=== PATIENT | male | born 1950 | race Caucasian/White ===

== ENCOUNTER → 2018-04-26 10:08 | Outpatient (CLI) | payer MEDICARE, OTHER, SELFPAY ==
[2018-04-26 12:30] LABS: Cholesterol 124 mg/dL (140-199); HDL Cholesterol 61 mg/dL (40-60); LDL Cholesterol Calculated 51 mg/dL (<100); Triglycerides 58 mg/dL (35-150)
== END ==
PROVIDERS: PCP Internal Medicine; Visit Provider Internal Medicine Cardiovascular Disease
DX: Z00.00 Encounter for general adult medical examination without abnormal findings (principal); I25.10 Atherosclerotic heart disease of native coronary artery without angina pectoris; Z95.5 Presence of coronary angioplasty implant and graft
CPT/HCPCS: 36415; 80061

== ENCOUNTER → 2018-07-17 09:54 | Outpatient (CLI) | payer MEDICARE, OTHER, SELFPAY ==
[2018-07-17 10:12] LABS: Add Manual Diff / Slide Review NO; Basophils Percent Auto 0.6 % (0-2); Hematocrit 44.3 % (41-53); Hemoglobin 14.8 g/dL (13.5-17.5); Lymphocytes Percent Auto 19.1 % (25-40); Mean Corpuscular HGB Conc 33.4 % (30-36); Mean Corpuscular Hemoglobin 30.1 PG (26-34); Mean Corpuscular Volume 90.2 fL (80-100); Neutrophils Absolute Auto 4400 /uL (3000-5900); Neutrophils Percent Auto 69.3 % (50-75); Platelet Count 204 X10^3/uL (150-400); Red Blood Cell Count 4.91 X10^6/uL (4.5-5.9); Red Cell Distribution Width 13.2 % (11.6-14.8); White Blood Cell Count 6.3 X10^3/uL (4.5-11.0)
[2018-07-17 11:23] LABS: Thyroid Stimulating Hormone 3.28 uIU/mL (0.47-4.68)
[2018-07-17 11:33] LABS: Alanine Aminotransferase 30 IU/L (21-72); Albumin 4.4 g/dL (3.5-5.0); Albumin Globulin Ratio 1.6 (1.0-2.8); Alkaline Phosphatase 81 U/L (38-126); Aspartate Aminotransferase 30 IU/L (17-59); BUN Creatinine Ratio 28.9 (6-22); Bilirubin Total 0.5 mg/dL (0.2-1.3); Blood Urea Nitrogen 26 mg/dL (9-20); Calcium 9.2 mg/dL (8.4-10.2); Carbon Dioxide 31 mmol/L (22-32); Chloride 105 mmol/L (98-107); Cholesterol 118 mg/dL (140-199); Estimated Glomerular Filt Rate > 60.0 mL/min (>60); Globulin 2.8 g/dL (1.7-4.1); Glucose 99 mg/dL (80-110); HDL Cholesterol 67 mg/dL (40-60); HEMOLYSIS < 15 (0-50); LDL Cholesterol Calculated 41 mg/dL (<100); Potassium 4.6 mmol/L (3.4-5.1); Sodium 142 mmol/L (137-145); Total Protein 7.2 g/dL (6.3-8.2); Triglycerides 52 mg/dL (35-150)
== END ==
PROVIDERS: PCP Internal Medicine; Visit Provider Internal Medicine
DX: M15.0 Primary generalized (osteo)arthritis (principal); F32.9 Major depressive disorder, single episode, unspecified; I25.10 Atherosclerotic heart disease of native coronary artery without angina pectoris
CPT/HCPCS: 36415; 80053; 80061; 84443; 85025

== ENCOUNTER 2018-10-11 11:44 | Day surgery (SDC) | payer MEDICARE, OTHER, SELFPAY ==
--- NOTE | 2018-10-11 | PATH_ITS ---
[facility] Accession Number: [id number] . 01 Material submitted: . PART A: TRANSVERSE COLON POLYP AT 75 PART B: LEFT COLON POLYP AT 40 PART C: SIGMOID POLYP AT 20 . 02 Diagnosis: A. Biopsy, Transverse Colon Polyp at 75 cm: Polypoid-shaped fragment of normal appearing colon mucosa consistent with mucosal polypoid redundancy. Negative for evidence of neoplasm on multiple histologic sections. . B. Biopsy, Polyp Left Colon at 40 cm: Tubular adenoma involving single biopsy fragment. . C. Biopsy, Sigmoid Colon Polyp at 20 cm: Hyperplastic polyp. MRV/10/12/2018 . 02 Electronically signed: . Beau Serrato MD, Pathologist NPI- [id number] . 01 Gross description: . Received three formalin-filled containers, each labeled with the patient's name: . A. In a container labeled transverse colon polyp at 75, the specimen consists of a 0.5 cm portion of tissue, entirely submitted in cassette A. B. In a container labeled left colon polyp at 40, the specimen consists of two 0.2-0.4 cm portions of tissue, entirely submitted in cassette B. C. In a container labeled sigmoid polyp at 20, the specimen consists of three 0.3-0.4 cm portions of tissue, entirely submitted in cassette C. ([id number]) /FRR . 02 Pathologist provided ICD-10: D12.4 . 02 CPT . 250730, 335536, [id number] Specimen Comment: A duplicate report has been generated due to demographic updates. Performed at: 01 [facility] [address], [place], [place] [id number] MD Robbie Naranjo MD Phone: [phone] Performed at: 02 [facility] [address] [place] [id number] MD Mary Beth Kennedy MD Phone: [phone]
[2018-10-11 12:04] VITALS: BMI 27.0
[2018-10-11 12:20] VITALS: BP 142/87; PULSE 75; RESP 16; TEMP 36.6; O2SAT 100
[2018-10-11] MEDS: SODIUM CHLORIDE 0.9% 1,000 ML 21 ML IV (12:20)
--- NOTE | 2018-10-11 12:46 | PM.HP.1 ---
History of Present Illness Date Patient Seen: 10/11/18 Time Patient Seen: 12:46 Chief complaint: 91052 Colonoscopy Narrative: 68-year-old male who presents for colorectal screening. His last examination was 10 years ago. On further history today he denies any recent gastrointestinal symptoms. No nausea, vomiting, loss of appetite, unexplained weight loss, abdominal pain, change in bowel habits, diarrhea, constipation, melena, hematochezia, or bright red blood per rectum. Patient History Medical History Anxiety disorder (Acute) Benign heart murmur (Acute) Chronic back pain (Acute) Coronary artery disease (Acute) Depression (Acute) History of coronary angiogram (Acute) Hyperlipidemia (Acute) Hypertension (Acute) Myocardial infarction (Acute) Osteoarthritis (Acute) Peripheral neuropathy (Acute) Surgical History History of colonoscopy (Acute) Family & Social History Family History: Reviewed 10/11/18 by Fidel Coffey MD Tobacco & Substance use: Nonsmoker Meds Home Medications Medication Instructions Recorded Confirmed Type aspirin 81 mg PO DAILY 10/11/18 10/11/18 History atorvastatin 80 mg PO BEDTIME 10/11/18 10/11/18 History gabapentin 100 mg PO BID 10/11/18 10/11/18 History gabapentin 300 mg PO BID 10/11/18 10/11/18 History venlafaxine 75 mg PO BID 10/11/18 10/11/18 History Allergies Allergy/AdvReac Type Severity Reaction Status Date / Time Penicillins [PENICILLINS] Allergy Severe I WILL Verified 10/11/18 12:20 , childhood rn hydrocodone Allergy Unknown pass out Verified 10/11/18 12:20 Review of Systems Review of Systems All systems reviewed & are unremarkable except as noted in HPI and below Exam Vital Signs (past 8 hours): - 10/11/18 12:20 Temperature 97.9 F Pulse Rate 75 Respiratory Rate 16 Blood Pressure 142/87 H Pulse Oximetry 100 Oxygen Delivery Method Room Air Narrative Exam Narrative: Well-nourished well-developed male in no acute distress. Alert oriented x3 Sclera nonicteric Chest clear to auscultation bilaterally with regular rate and rhythm. Abdomen soft, nondistended, nontender, no masses Extremities no clubbing, cyanosis, or edema Objective Labs Labs: No recent laboratory or radiographic studies for review Assessment & Plan Plan: Assessment/Plan Narrative: 68-year-old male requiring colorectal screening since it has been 10 years from his previous examination. Colonoscopy is currently recommended. Technical details of the procedure were discussed. Risks, benefits, alternatives were explained. Risks including but not limited to sedation, aspiration, bleeding, pain, missed lesion, incomplete examination, need for further radiographic studies, colonic perforation, need for major abdominal surgery, and all attendant risks of major surgery were discussed at length. All questions were answered to his satisfaction, and he voiced understanding. Consent was placed on the chart. We will proceed as above.
--- NOTE | 2018-10-11 12:50 | PM.PREOP ---
Pre-operative Note Interval Note Pre-op Check: Yes History & Physical Reviewed by Physician, Yes Exam Performed and Yes History & Physical exam performed today by Physician Changes: No H&P completed within 30 days and has changed as indicated here:: Patient seen and examined today. History and physical examination placed on the chart. Proceed with colonoscopy today as planned. ASA Class (for procedural sedation): II
[2018-10-11] MEDS: MIDAZOLAM 5 MG/5 ML VIAL IV (13:06)
[2018-10-11] MEDS: fentaNYL 250 MCG/5 ML INJ IV (13:07)
--- NOTE | 2018-10-11 13:12 | SUR.OPER ---
GLASSES TO PACU WITH PATIENT
--- NOTE | 2018-10-11 13:36 | PM.OP.ENDO ---
Operative Date/Time/Diagnoses Date of procedure: 10/11/18 Time of procedure: 13:36 Pre-op diagnosis: Colorectal screening Post-op diagnosis: other (Colon polyps) Procedure & Clinicians Study performed: 1. Sedation per surgeon 2. Colonoscopy with cold forceps polypectomies Same procedure as scheduled: Yes Indications: 68-year-old male who presents for colorectal screening. His last examination was 10 years ago. Colonoscopy is currently recommended. Surgeon: Fidel Coffey Procedure Notes SCOAP/Timeout: Yes Procedure in detail: After obtaining informed consent, the patient was brought to the GI suite and placed in the left lateral decubitus position on the examination table. After placement of appropriate monitors, the patient was given incremental doses of Versed and Fentanyl until an appropriate level of sedation was achieved. A time out was held per SCOAP protocol. A digital rectal examination was performed and did not reveal any masses or obstructing lesions. The colonoscope was gently passed into the patient's anus and the entire colon navigated to the level of the cecum with some difficulty due to extremely redundant colon. Cecum was achieved only after repositioning the patient several times along with abdominal pressure. Bowel preparation was fair. Once in the cecum, the scope was withdrawn being sure to go before and beyond all mucosal folds and prominences and get an excellent examination. The findings are noted above. At the level of the rectal vault, the scope was retroflexed and the internal anal canal was examined. The scope was straightened and air aspirated from the colon. The instrument was removed from the patient's body and the procedure was concluded. The patient was allowed to awaken from sedation without difficulty and taken to the post-anesthesia care unit in good condition. Scope withdrawal time: 15:20 min Sedation minutes: 41 Findings: polyp Specimen(s): other (1. Transverse colon polyp at 70 cm 2. Left colon polyp at 40 cm 3. Sigmoid polyp at 20 cm) Complications: none Recommendations: Colonscopy in 5 years, High fiber diet and Will call with biopsy results Plan for aftercare: 1. Discharge home Follow up: as needed Disposition: PACU
[2018-10-11 13:40] VITALS: BP 138/79; PULSE 66; RESP 16; TEMP 37.1; O2SAT 98
--- NOTE | 2018-10-11 13:48 | SUR.PHASEII ---
pt bypassed pacu, awake on arrival. belly soft. vss
[2018-10-11 14:04] VITALS: BP 125/77; PULSE 66; RESP 16; TEMP 36.7; O2SAT 98
--- NOTE | 2018-10-11 14:08 | SUR.PHASEII ---
report to [facility] called, to be here in 20 minutes.
== END 2018-10-11 14:15 | disposition home or self-care (01) ==
PROVIDERS: Family Provider Internal Medicine; PCP Internal Medicine; Visit Provider Surgery
PROC: 0DJD8ZZ Inspection of Lower Intestinal Tract, Via Natural or Artificial Opening Endoscopic (ICD-10-PCS; CPT 45378; principal; 2018-10-11 12:45)
DX: Z12.11 Encounter for screening for malignant neoplasm of colon (principal); F41.9 Anxiety disorder, unspecified; I25.10 Atherosclerotic heart disease of native coronary artery without angina pectoris; I10 Essential (primary) hypertension; I25.2 Old myocardial infarction; F33.41 Major depressive disorder, recurrent, in partial remission; E78.5 Hyperlipidemia, unspecified; G62.9 Polyneuropathy, unspecified; D12.4 Benign neoplasm of descending colon
CPT/HCPCS: 45380; 88305; 99152; 99153; J2250; J3010

== ENCOUNTER → 2019-01-14 10:00 | Outpatient (CLI) | payer MEDICARE, OTHER, SELFPAY ==
[2019-01-14 10:45] LABS: BUN Creatinine Ratio 31.1 (6-22); Blood Urea Nitrogen 28 mg/dL (9-20); Carbon Dioxide 27 mmol/L (22-32); Chloride 103 mmol/L (98-107); Estimated Glomerular Filt Rate > 60.0 mL/min (>60); Glucose 130 mg/dL (80-110); HEMOLYSIS < 15 (0-50); Potassium 4.5 mmol/L (3.4-5.1); Sodium 140 mmol/L (137-145)
[2019-01-14 11:13] LABS: Prostate Specific Antigen Scrn 0.199 ng/mL (0.1-4.0)
[2019-01-14 17:37] LABS: Hep C Virus Ab w/Reflex Quant NEGATIVE s/c (NEGATIVE)
== END ==
PROVIDERS: Family Provider Internal Medicine; PCP Internal Medicine; Visit Provider Internal Medicine
DX: M15.0 Primary generalized (osteo)arthritis (principal); F32.9 Major depressive disorder, single episode, unspecified; I25.10 Atherosclerotic heart disease of native coronary artery without angina pectoris; Z00.01 Encounter for general adult medical examination with abnormal findings
CPT/HCPCS: 36415; 80048; 86803; G0103

== ENCOUNTER → 2019-05-09 09:22 | Outpatient (CLI) | payer MEDICARE, OTHER, SELFPAY ==
[2019-05-09 10:51] LABS: BUN Creatinine Ratio 21.1 (6-22); Blood Urea Nitrogen 19 mg/dL (9-20); Calcium 9.4 mg/dL (8.4-10.2); Carbon Dioxide 29 mmol/L (22-32); Chloride 102 mmol/L (98-107); Estimated Glomerular Filt Rate > 60.0 mL/min (>60); Glucose 103 mg/dL (80-110); HEMOLYSIS < 15 (0-50); Potassium 4.3 mmol/L (3.4-5.1); Sodium 139 mmol/L (137-145)
== END ==
PROVIDERS: Family Provider Internal Medicine; PCP Internal Medicine; Visit Provider Registered Nurse
DX: I25.10 Atherosclerotic heart disease of native coronary artery without angina pectoris (principal); R01.1 Cardiac murmur, unspecified; I25.5 Ischemic cardiomyopathy
CPT/HCPCS: 36415; 80048

== ENCOUNTER → 2019-07-02 11:27 | Outpatient (CLI) | payer MEDICARE, OTHER, SELFPAY ==
--- NOTE | 2019-07-02 | DI.RAD.S_ITS ---
PROCEDURE: XR RIBS LT MIN 3V W CXR1V INDICATIONS: Pleurodynia TECHNIQUE: 2 views of the left ribs were acquired, along with a single view chest. COMPARISON: None. FINDINGS: Surgical changes and devices: None. Bones and chest wall: No dislocations. No suspicious bony lesions. Overlying soft tissues appear unremarkable. There is a slightly displaced fracture involving what appears to be the left ninth rib and likely also the left 10th rib without pneumothorax Lungs and pleura: No pleural effusions or pneumothorax. Lungs appear clear. Mediastinum: Mediastinal contours appear normal. Heart size is normal. IMPRESSION: Acute left ninth and 10th rib fractures, without associated pneumothorax. Dictated by: Bijan Colvin M.D. on 07/02/2019 at 12:05 Approved by: Bijan Colvin M.D. on 07/02/2019 at 12:07
== END ==
PROVIDERS: Family Provider Internal Medicine; PCP Internal Medicine; Visit Provider Physician Assistant
DX: S22.42XA Multiple fractures of ribs, left side, initial encounter for closed fracture (principal); R07.81 Pleurodynia
CPT/HCPCS: 71101

== ENCOUNTER → 2019-08-09 10:07 | Outpatient (CLI) | payer MEDICARE, OTHER, SELFPAY ==
[2019-08-09 11:29] LABS: BUN Creatinine Ratio 17.5 (6-22); Blood Urea Nitrogen 14 mg/dL (9-20); Calcium 9.3 mg/dL (8.4-10.2); Carbon Dioxide 27 mmol/L (22-32); Chloride 103 mmol/L (98-107); Cholesterol 127 mg/dL (140-199); Estimated Glomerular Filt Rate > 60.0 mL/min (>60); Glucose 106 mg/dL (80-110); HDL Cholesterol 61 mg/dL (40-60); HEMOLYSIS < 15 (0-50); LDL Cholesterol Calculated 56 mg/dL (<100); Potassium 4.5 mmol/L (3.4-5.1); Sodium 140 mmol/L (137-145); Triglycerides 49 mg/dL (35-150)
== END ==
PROVIDERS: PCP Internal Medicine; Visit Provider Registered Nurse
DX: R01.1 Cardiac murmur, unspecified (principal); I25.5 Ischemic cardiomyopathy; I25.10 Atherosclerotic heart disease of native coronary artery without angina pectoris
CPT/HCPCS: 36415; 80048; 80061

== ENCOUNTER → 2019-09-11 13:54 | Outpatient (CLI) | payer MEDICARE, OTHER, SELFPAY ==
[2019-09-11 14:52] LABS: Add Manual Diff / Slide Review NO; Basophils Absolute Auto 0 /uL (0-100); Basophils Percent Auto 0.6 % (0-2); Eosinophils Absolute Auto 200 /uL (0-450); Hematocrit 44.4 % (41-53); Hemoglobin 14.7 g/dL (13.5-17.5); Lymphocytes Absolute Auto 1700 /uL (1100-4500); Mean Corpuscular HGB Conc 33.1 % (30-36); Mean Corpuscular Hemoglobin 30.1 PG (26-34); Mean Corpuscular Volume 90.9 fL (80-100); Monocytes Absolute Auto 600 /uL (0-900); Monocytes Percent Auto 9.7 % (3-14); Neutrophils Absolute Auto 3900 /uL (1500-7000); Neutrophils Percent Auto 59.7 % (50-75); Platelet Count 222 X10^3/uL (150-400); Red Blood Cell Count 4.89 X10^6/uL (4.5-5.9); Red Cell Distribution Width 13.4 % (11.6-14.8); White Blood Cell Count 6.4 X10^3/uL (4.5-11.0)
== END ==
PROVIDERS: PCP Internal Medicine; Visit Provider Orthopaedic Surgery
DX: Z01.818 Encounter for other preprocedural examination (principal)
CPT/HCPCS: 36415; 85025; 93005

== ENCOUNTER 2019-10-03 14:14 | Day surgery (SDC) | payer MEDICARE, OTHER, SELFPAY ==
[2019-09-30 10:49] VITALS: BMI 28.0
[2019-10-03] VITALS (8 sets, daily range): BP systolic 151–167; BP diastolic 90–109; PULSE 60–78; RESP 15–20; TEMP 36–36.8; O2SAT 95–98; BMI 28.0
[2019-10-03] MEDS: LACTATED RINGERS 1,000 ML 42 ML IV (15:00)
--- NOTE | 2019-10-03 16:23 | PM.PREOP ---
Pre-operative Note Interval Note History & Physical reviewed/Exam performed by Physician: Yes Changes to H&P: No
--- NOTE | 2019-10-03 16:36 | PM.OP.1 ---
Operative Date/Time/Diagnoses Date of procedure: 10/03/19 Time of procedure: 17:23 Pre-op diagnosis: History of right lateral malleolus ankle fracture Prominent retained hardware in the ankle Post-op diagnosis: same Procedure & Clinicians Procedure: Hardware removal of plate and screws from right lateral malleolus Same procedure as scheduled: Yes Indications: [age] year old male with bothersome prominent hardware in the right ankle after ORIF. They had failed conservative management and requested operative intervention. Risks and benefits of surgery were discussed and appropriate consents were obtained. Surgeon: Emory Méndez Click Yes if Unassisted: Yes Anesthesia Type: General Operative Notes Findings: None Closure Type: primary Specimen(s): none sent Prosthetic devices, grafts, tissues, transplants, or devices: removed Synthes small frag plate and screws Estimated Blood Loss (mL): 5 Blood products transfused: none Procedure in detail: Patient brought to the operating room and intubated on the table. Time-out was performed. Attention was turned towards the well-marked right ankle. The right leg was prepped and draped in standard sterile fashion. We used his old incision and cut through the skin. We bluntly dissected down to the plate. This was cleared with the Bovie. The screws were removed including the lag screw and the plate was removed. He bled out of every screw hole, they were then cleared with a curette and filled with bone wax to stop the bleeding. The bone was stressed and it was stable. The wound was irrigated. The deep, superficial, and skin were closed. A sterile dressing was placed. He was then placed into his Cam walker. Complications: none Post-operative Condition: stable Disposition: PACU Plan for aftercare: Outpatient. Weight bear as tolerated in the Cam Walker. Follow up 1.5 weeks. He may resume activity as tolerated once the skin has healed over
[2019-10-03] MEDS: CLINDAMYCIN 600 MG/50 ML PIGGYBACK 50 MG IV (16:41)
--- NOTE | 2019-10-03 16:59 | SUR.OPER ---
Supine on padded OR bed, head on pillow, arms secured on padded arm boards at <90 degrees abduction, legs uncrossed, safety belt at thigh, tape over blanket over lower legs. Bump under right hip
[2019-10-03] MEDS: BUPIVACAINE 0.5% W/ EPI (PF) VIAL 30 ML INJ (17:11)
[2019-10-03] MEDS: LABETALOL 20 MG/4 ML SYRINGE 5 MG IV (17:42)
[2019-10-03] MEDS: OXYCODONE/ACETAMINOPHEN 5/325 TABLET 1 TAB PO (18:05)
--- NOTE | 2019-10-03 18:26 | SUR.PHASEI ---
Late entry: Bp arrived with elevated BP, Dr. Isabel made aware. Labetalol given. BP back to baseline. C/o pain 02/03, Percocet order obtained from Dr. Isabel. Awaiting pharmacy to verify, pt moved to phase 2 and reported off to Kirill.
== END 2019-10-03 19:27 | disposition home or self-care (01) ==
PROVIDERS: PCP Internal Medicine; Visit Provider Orthopaedic Surgery
PROC: (CPT 27704; principal; 2019-10-03 15:45)
DX: T84.84XA Pain due to internal orthopedic prosthetic devices, implants and grafts, initial encounter (principal); I10 Essential (primary) hypertension; I25.2 Old myocardial infarction
CPT/HCPCS: 27704; J1100; J2405; J2704

== ENCOUNTER → 2019-11-15 10:52 | Outpatient (CLI) | payer MEDICARE, OTHER, SELFPAY ==
[2019-11-15 12:06] LABS: Cholesterol 154 mg/dL (140-199); HDL Cholesterol 58 mg/dL (40-60); LDL Cholesterol Calculated 84 mg/dL (<100); Triglycerides 59 mg/dL (35-150)
== END ==
PROVIDERS: PCP Internal Medicine; Visit Provider Registered Nurse
DX: E78.49 Other hyperlipidemia (principal)
CPT/HCPCS: 36415; 80061

== ENCOUNTER → 2019-12-20 13:36 | Outpatient (CLI) | payer MEDICARE, SELFPAY ==
--- NOTE | 2019-12-20 | DI.ECHO.S_ITS ---
[facility] +---------+ : : [address] : [place] : : : : [id number] : : : : Phone: [phone]+ Echocardiogram Report + + :Name: NATHANAEL ESCOBAR Study Date: 12/20/2019 Height: 73 in : :[facility] Weight: 215 lb : : Gender: Male BSA: 2.2 m2 : :: 1950 Age: 69 yrs BP: 158/84 mmHg: :Reason For Study: MURMUR : : Performed By: Harinder Jones : :Referring: Henry Novak M.D. : + + Interpretation Summary The ejection fraction is estimated to be 60-65%. The aortic valve is mildly calcified. There is mildly reduced leaflet mobility. There is mild aortic stenosis. The calculated aortic valve area is 1.7 cm2. Procedure: A two-dimensional transthoracic echocardiogram with color flow and Doppler was performed. The study quality was technically adequate. Images from the parasternal window were difficult to obtain and are suboptimal in quality. There is no prior echocardiogram noted for this patient. The subcostal views were difficult to obtain and are suboptimal in quality. The patient was in normal sinus rhythm during the exam. Left Ventricle: The left ventricle is normal in size. Left ventricular wall thickness is mildly increased. The ejection fraction is estimated to be 60- 65%. There are no focal wall motion abnormalities. Right Ventricle: The right ventricle is normal in size and function. Atria: The left atrium is mildly dilated. Right atrial size is normal. The interatrial septum is intact with no evidence for an atrial septal defect. Mitral Valve: The mitral valve is normal in structure and function. There is trace mitral regurgitation. Aortic Valve: The aortic valve is trileaflet. The aortic valve is mildly calcified. There is mildly reduced leaflet mobility. The peak aortic velocity is 2.79 m/sec. The aortic valve mean gradient is 17.1 mmHg. The calculated aortic valve area is 1.7 cm2. There is mild aortic stenosis. There is trace aortic regurgitation. Tricuspid Valve: The tricuspid valve is normal in structure and function. There is a trace or physiologic amount of tricuspid regurgitation. Pulmonary artery pressures cannot be estimated because of the lack of a measurable TR jet velocity. Pulmonic Valve: The pulmonic valve is not well visualized. There is trace pulmonic regurgitation. Great Vessels: The aortic root is normal size. The dimensions of the ascending aorta are normal. The pulmonary artery is normal size. The inferior vena cava was not well visualized. Pericardium/ Pleura There is no pericardial effusion. There is no pleural effusion. MMode/2D Measurements & Calculations LVIDd: 4.9 cm LVOT diam: 2.2 cm LVIDs: 3.3 cm Ao root diam: 3.4 cm FS: 32.1 % Aortic Jxn: 2.6 cm EPSS: 0.60 cm asc Aorta Diam: 2.8 cm IVSd: 1.2 cm Ao Arch Diam (Prox Trans): 2.8 cm LVPWd: 1.1 cm LV boss. diameter/BSA (cm/m^2): 2.2 LV sys. diameter/BSA (cm/m^2): 1.5 LA dimension: 3.2 cm RA long axis: 3.9 cm LA A2 area: 24.4 cm2 RA area: 17.2 cm2 LA A4 area: 22.8 cm2 RA vol: 64.3 ml LA length (vol): 5.2 cm RA : 29.0 ml/m2 LA vol: 90.2 ml LA vol index: 40.7 ml/m2 Doppler Measurements & Calculations Ao V2 max: 272.9 cm/sec LVOT Max Hossein: 117.5 cm/sec Ao V2 mean: 196.2 cm/sec LV V1 max P.5 mmHg Ao max P.8 mmHg LV V1 VTI: 26.1 cm Ao mean P.1 mmHg RACHAEL(I,D): 1.8 cm2 Ao V2 VTI: 56.6 cm RACHAEL(V,D): 1.7 cm2 sev ratio: 0.46 RACHAEL indexed to BSA (cm^2/m^2): 0.81 MV E max hossein: 75.8 cm/sec PA V2 max: 98.9 cm/sec MV A max hossein: 90.4 cm/sec PA V2 mean: 66.1 cm/sec MV E/A: 0.84 PA mean P.0 mmHg Med Peak E' Hossein: 6.5 cm/sec PA pr(Accel): 54.0 mmHg E/E' med: 11.7 PA Accel Time: 0.06 sec MV dec time: 0.26 sec SV(LVOT): 101.5 ml Reading Physician:04:41 PM
== END ==
PROVIDERS: Family Provider Internal Medicine; PCP Internal Medicine; Visit Provider Registered Nurse
DX: I35.0 Nonrheumatic aortic (valve) stenosis (principal); R01.1 Cardiac murmur, unspecified; I25.5 Ischemic cardiomyopathy
CPT/HCPCS: 93306

== ENCOUNTER → 2020-01-02 11:15 | Outpatient (CLI) | payer MEDICARE, SELFPAY ==
[2020-01-02 12:16] LABS: Add Manual Diff / Slide Review NO; Basophils Absolute Auto 0 /uL (0-100); Basophils Percent Auto 0.5 % (0-2); Eosinophils Absolute Auto 100 /uL (0-450); Eosinophils Percent Auto 2.4 % (2-4); Hematocrit 43.6 % (41-53); Hemoglobin 14.7 g/dL (13.5-17.5); Lymphocytes Absolute Auto 1400 /uL (1100-4500); Lymphocytes Percent Auto 25.8 % (25-40); Mean Corpuscular HGB Conc 33.7 % (30-36); Mean Corpuscular Volume 89.1 fL (80-100); Monocytes Absolute Auto 500 /uL (0-900); Monocytes Percent Auto 8.8 % (3-14); Neutrophils Absolute Auto 3400 /uL (1500-7000); Neutrophils Percent Auto 62.5 % (50-75); Platelet Count 238 X10^3/uL (150-400); Red Blood Cell Count 4.89 X10^6/uL (4.5-5.9); Red Cell Distribution Width 13.2 % (11.6-14.8); White Blood Cell Count 5.5 X10^3/uL (4.5-11.0)
[2020-01-02 12:43] LABS: Alanine Aminotransferase 22 IU/L (<50); Albumin 4.7 g/dL (3.5-5.0); Albumin Globulin Ratio 1.5 (1.0-2.8); Alkaline Phosphatase 91 U/L (38-126); Aspartate Aminotransferase 28 IU/L (17-59); BUN Creatinine Ratio 18.9 (6-22); Bilirubin Total 0.4 mg/dL (0.2-1.3); Blood Urea Nitrogen 17 mg/dL (9-20); Calcium 10.2 mg/dL (8.4-10.2); Carbon Dioxide 29 mmol/L (22-32); Chloride 102 mmol/L (98-107); Estimated Glomerular Filt Rate > 60.0 mL/min (>60); Globulin 3.2 g/dL (1.7-4.1); Glucose 97 mg/dL (80-110); HEMOLYSIS < 15 (0-50); Potassium 4.6 mmol/L (3.4-5.1); Sodium 141 mmol/L (137-145); Total Protein 7.9 g/dL (6.3-8.2)
== END ==
PROVIDERS: Family Provider Internal Medicine; PCP Internal Medicine; Referring Provider Internal Medicine; Visit Provider Internal Medicine
DX: M15.0 Primary generalized (osteo)arthritis (principal); F32.9 Major depressive disorder, single episode, unspecified; I25.10 Atherosclerotic heart disease of native coronary artery without angina pectoris
CPT/HCPCS: 36415; 80053; 85025

== ENCOUNTER → 2020-04-22 11:05 | Outpatient (CLI) | payer MEDICARE, SELFPAY ==
[2020-04-22 12:53] LABS: Cholesterol 181 mg/dL (140-199); HDL Cholesterol 48 mg/dL (40-60); LDL Cholesterol Calculated 121 mg/dL (<100); Triglycerides 59 mg/dL (35-150)
== END ==
PROVIDERS: Family Provider Internal Medicine; PCP Internal Medicine; Referring Provider Internal Medicine; Visit Provider Internal Medicine
DX: E78.2 Mixed hyperlipidemia (principal); I10 Essential (primary) hypertension
CPT/HCPCS: 36415; 80061

== ENCOUNTER → 2020-06-29 15:48 | Outpatient (CLI) | payer MEDICARE, SELFPAY ==
[2020-06-29 17:24] LABS: Cholesterol 218 mg/dL (140-199); HDL Cholesterol 68 mg/dL (40-60); LDL Cholesterol Calculated 128 mg/dL (<100); Triglycerides 112 mg/dL (35-150)
== END ==
PROVIDERS: Family Provider Internal Medicine; PCP Internal Medicine; Referring Provider Internal Medicine; Visit Provider Internal Medicine
DX: M15.0 Primary generalized (osteo)arthritis (principal); F32.9 Major depressive disorder, single episode, unspecified; I25.10 Atherosclerotic heart disease of native coronary artery without angina pectoris
CPT/HCPCS: 36415; 80061

== ENCOUNTER 2020-10-19 11:30 | Emergency (ER) | payer MEDICARE, SELFPAY ==
[2020-10-19] VITALS (14 sets, daily range): BP systolic 128–165; BP diastolic 66–87; PULSE 59–71; RESP 14–22; TEMP 36.1; O2SAT 91–99; BMI 29.0
[2020-10-19 12:13] LABS: Add Manual Diff / Slide Review NO; Basophils Absolute Auto 0 /uL (0-100); Basophils Percent Auto 0.2 % (0-2); Eosinophils Absolute Auto 0 /uL (0-450); Eosinophils Percent Auto 0.3 % (2-4); Hematocrit 44.1 % (41-53); Lymphocytes Absolute Auto 800 /uL (1100-4500); Lymphocytes Percent Auto 7.9 % (25-40); Mean Corpuscular HGB Conc 33.9 % (30-36); Mean Corpuscular Hemoglobin 30.9 PG (26-34); Mean Corpuscular Volume 91.1 fL (80-100); Monocytes Absolute Auto 800 /uL (0-900); Monocytes Percent Auto 7.4 % (3-14); Neutrophils Absolute Auto 8900 /uL (1500-7000); Neutrophils Percent Auto 84.2 % (50-75); Platelet Count 211 X10^3/uL (150-400); Red Blood Cell Count 4.84 X10^6/uL (4.5-5.9); Red Cell Distribution Width 12.8 % (11.6-14.8); White Blood Cell Count 10.6 X10^3/uL (4.5-11.0)
[2020-10-19 12:26] LABS: BUN Creatinine Ratio 12.5 (6-22); Blood Urea Nitrogen 15 mg/dL (9-20); Calcium 9.6 mg/dL (8.4-10.2); Carbon Dioxide 30 mmol/L (22-32); Chloride 103 mmol/L (98-107); Estimated Glomerular Filt Rate > 60.0 mL/min (>60); Glucose 135 mg/dL (80-110); HEMOLYSIS < 15 (0-50); Potassium 4.2 mmol/L (3.4-5.1); Sodium 139 mmol/L (137-145)
--- NOTE | 2020-10-19 12:33 | DI.US.S_ITS ---
PROCEDURE: US PERIPH VENOUS UP EXTREM RT INDICATIONS: RIGHT HAND SWELLING/PAIN TECHNIQUE: Real-time imaging, as well as color and pulse Doppler interrogation, was performed of the right upper extremity deep veins from the inferior neck to the antecubital fossa. COMPARISON: None. FINDINGS: The internal jugular vein, visualized portions of the subclavian vein, axillary, and brachial veins are free of intraluminal thrombus. Where physically possible, the veins are normally compressible. Color and pulse Doppler demonstrate normal intraluminal flow, with expected phasicity and pulsatility. Additional scanning of the cephalic and basilic veins of the superficial system demonstrate normal compressibility, without thrombus. IMPRESSION: No sonographic evidence of DVT Dictated by: Tio Santizo M.D. on 10/19/2020 at 13:34 Approved by: Tio Santizo M.D. on 10/19/2020 at 13:35
--- NOTE | 2020-10-19 12:33 | DI.RAD.S_ITS ---
PROCEDURE: XR CHEST 1V INDICATIONS: syncope TECHNIQUE: One view of the chest was acquired. COMPARISON: [facility], CHEST 1 VIEW, 04/20/2017, 21:59. [facility], CHEST 1 VIEW, 01/06/2016, 11:51. FINDINGS: Surgical changes and devices: None. Lungs and pleura: Lungs are clear. No pleural effusions or pneumothorax. Mediastinum: Mediastinal contours appear normal. Heart size is normal. Bones and chest wall: No suspicious bony lesions. Overlying soft tissues appear unremarkable. IMPRESSION: Normal for age, source of current syncope symptoms is not seen. Dictated by: Bijan Colvin M.D. on 10/19/2020 at 13:22 Approved by: Bijan Colvin M.D. on 10/19/2020 at 13:22
--- NOTE | 2020-10-19 12:33 | DI.CT.S_ITS ---
PROCEDURE: CT HEAD/BRAIN WO CON INDICATIONS: syncope TECHNIQUE: Noncontrast 4.5 mm thick angled axial sections acquired from the foramen magnum to the vertex, with coronal and sagittal reformats. For radiation dose reduction, the following was used: automated exposure control, adjustment of mA and/or kV according to patient size. COMPARISON: None. FINDINGS: Image quality: Excellent. CSF spaces: Basal cisterns are patent. No extra-axial fluid collections. Ventricles are normal in size and shape. Brain: No intracranial hemorrhage, mass, or mass effect. Cobos-white matter interface appears preserved. Skull and face: Calvarium and visualized facial bones are intact, without suspicious lesions. Sinuses: Visualized sinuses demonstrates mild mucosal thickening in the left sphenoid sinus. The mastoids are clear. IMPRESSION: 1. No acute intracranial abnormality. Dictated by: Robbie Mccoy M.D. on 10/19/2020 at 12:52 Approved by: Robbie Mccoy M.D. on 10/19/2020 at 12:55
--- NOTE | 2020-10-19 12:33 | DI.RAD.S_ITS ---
PROCEDURE: XR HAND RT MIN 3V INDICATIONS: hand pain, swelling NOT FROM FALL HAPPENED LAST WEEK TECHNIQUE: 3 views of the hand(s) acquired. COMPARISON: None. FINDINGS: Bones: No acute fractures or dislocations. Carpal bones are normally aligned. No suspicious bony lesions. Soft tissues: No suspicious soft tissue calcifications. Mild soft tissue swelling over the dorsum of the hand. IMPRESSION: Mild soft tissue swelling over the dorsum of the hand but no acute trauma found. Dictated by: Bijan Colvin M.D. on 10/19/2020 at 13:22 Approved by: Bijan Colvin M.D. on 10/19/2020 at 13:23
--- NOTE | 2020-10-19 13:30 | ED_ITS ---
HPI - Syncope <CHRISTIAN Karimi - Last Filed: 10/19/20 21:34> General Chief Complaint: Syncope Stated Complaint: Rt hand injury/fall laceration to lt leg Time Seen by Provider: 10/19/20 11:53 Source: patient Mode of arrival: Ambulatory Limitations: no limitations History of Present Illness HPI narrative: This is a 70-year-old male, nonsmoker, who has past medical history significant for CAD, [place], hypertension, ankle surgeries, presents to ED with chief complain of syncopal episode this morning the shower and sustain a left barger laceration; right dominant hand pain and swelling for 4 days. Patient denies chest pain, dyspnea, palpitations, or arrhythmia before the syncopal episode but felt lightheaded and weak. Patient denies history of pulmonary embolism or blood clots and denies on blood thinner. He takes baby aspirin daily. Patient reports had 2 episodes of syncopal episode 2 years ago due to taking Vicodin and being in hot shower from hypotensive episodes. Patient could not finish shower and was about to walk up the shower and found himself on the floor. Denies this was witnessed and reports probably a few seconds of syncopal episode. Patient reports mild left shoulder discomfort and right forearm light ecchymosis from the fall. 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 Patient reports has history of osteoarthritis but in the past never had this much of swelling or pain in the past. Patient reports intact sensation and decreased range of motion and strength due to pain.He denies associated symptoms such as fever overt, chills, nausea or vomiting but feels slightly warmer than usual. Denies skin injury. Patient has decreased appetite from severe pain and he rates as 8 to 9/10. Pain increases with palpation and movements. Patient has history of wrist surgery in 1970. Related Data Home Medications Medication Instructions Recorded Confirmed aspirin 81 mg PO DAILY 10/11/18 10/03/19 atorvastatin 80 mg PO BEDTIME 10/11/18 10/03/19 gabapentin 100 mg PO BID 10/11/18 10/03/19 gabapentin 300 mg PO BID 10/11/18 10/03/19 venlafaxine 75 mg PO BID 10/11/18 10/03/19 Previous Rx's Medication Instructions Recorded oxycodone-acetaminophen [Percocet] 1 tab PO Q4H PRN #10 tab 10/03/19 Allergies Allergy/AdvReac Type Severity Reaction Status Date / Time Penicillins [PENICILLINS] Allergy Severe I WILL Verified 10/03/19 14:42 , childhood rn hydrocodone AdvReac Severe pass out Verified 10/03/19 14:42 Review of Systems <CHRISTIAN Karimi - Last Filed: 10/19/20 21:34> Review of Systems Narrative: General: Denies (+) subjective fever, chills, fatigue, malaise, sweats. HEENT: Denies sinus pain, ear pain, sore throat, difficulty swallowing, (+) dizziness. Respiratory: Denies dyspnea, cough, wheezing, hemoptysis, sputum. Cardiovascular: Denies chest pain, palpitations, orthopnea, edema. Gastrointestinal: Denies nausea, vomiting, abdominal pain, diarrhea, constipa tion, melena. : Denies dysuria, frequency, incontinence, hematuria, urinary retention. Musculoskeletal: Denies weakness, joint pain or bony pain. Skin: See HPI Neurologic: See HPI Psychiatric: No concerning psychosocial issues. 12-point review of systems is negative except for those stated above. Patient History <CHRISTIAN Karimi - Last Filed: 10/19/20 21:34> Medical History Anxiety disorder Benign heart murmur Chronic back pain Coronary artery disease Depression History of coronary angiogram Hyperlipidemia Hypertension Myocardial infarction (04/20/17) Osteoarthritis Peripheral neuropathy Surgical History History of arthroscopy History of arthroscopy of knee History of colonoscopy Social History household members: none Smoking Status: Never smoker alcohol intake: current Smoking Status: Never smoker alcohol intake frequency: 0-2 drinks per day Substance Use Type: does not use Exam <CHRISTIAN Karimi - Last Filed: 10/19/20 21:34> Narrative Exam Narrative: GEN: Alert, oriented x 3, well appearing and nourished, and in no acute distress. Head: Normal cephalic, atraumatic. No scalp or temporal tenderness, palpable mass or rash. EYES: Pupils are equal, round, and reactive to light and accommodation. Extraocular muscles are intact bilaterally. There is no subconjunctival hemorrhage, exudate and sclera non-icteric. ENT: Bilateral auditory canals and tympanic membranes clear. Hearing grossly intact. Nose without bleeding, purulent discharge or deviation. Facial sinuses nontender to palpate. Mucous membrane moist, no mucosal lesion. Throat without erythema, tonsillar hypertrophy or exudate. Uvula in midline, airway patent. Neck: Trachea in midline. No JVD, non-tender without lymphadenopathy. No masses or thyroid megaly. Supple, non-tender and no meningeal signs. CARDIAC: Normal regular rate and rhythm with murmurs. No gallops, or rubs. No chest wall tenderness. No peripheral edema, cyanosis or pallor. Capillary refill is less than 2 seconds. RESPIRATORY: Lungs are clear to auscultate bilaterally. No cough, wheezes, rales, or rhonchi. No stridor, respiratory distress, increase work of br eathing, or accessary muscle used. ABD: Abdomen soft, nontender and non-distended. No guarding or rebound tenderness to palpate. Bowel sounds are normal in all 4 quadrants. There is no palpable masses or organomegaly. EXT: Mild tenderness to palpate in anterior and lateral left shoulder without deformity, swelling, erythema, or crepitus and neurovascularly intact distally. Right hand strength and range of motion decreased compared to left hand. Intact radial pulse and sensation with brisk cap refill on right hand. SKIN: Laceration on left barger without active bleeding. Faint ecchymosis to right forearm. Generalize right hand swelling and tender to palpate. Mild warmth and erythema appreciated. BACK: Mild tenderness to palpate in lumbar region and patient reports this is chronic pain and no changes. No deformity or crepitance. No flank tenderness. NEUROLOGICAL: Alert and oriented to place, time and person. Sensation and motor function intact bilaterally. No facial droops, dysphasia. PSYCHIATRIC: Good judgement and reason, without hallucinations, abnormal affect or abnormal behaviors during the examination. Patient is not suicidal. Initial Vital Signs Initial Vital Signs: Vital Signs Pulse Rate 71 10/19/20 11:40 Respiratory Rate 21 10/19/20 11:40 Pulse Oximetry 91 10/19/20 11:40 <Leo Vasquez DO - Last Filed: 10/20/20 00:11> Initial Vital Signs Initial Vital Signs: Vital Signs Pulse Rate 71 10/19/20 11:40 Respiratory Rate 21 10/19/20 11:40 Pulse Oximetry 91 10/19/20 11:40 Procedures <[facility]idalP Filed: 10/19/20 21:34> Laceration Repair Laceration 1: Site: lower extremity Side (If applicable): left Size (cm): 5 Description: linear and flap Depth: simple, single layer Local Anesthetic: lidocaine 1% and with bicarb Amount of anesthesia used (mL): 4 Pre-repair: wound explored and irrigated extensively Skin layer closed with: nylon Size (cm): 4-0 Number of sutures: 4 Technique: simple, interrupted Scores <Zaheer Encarnacionhemant [employer] Filed: 10/19/20 21:34> GCS [place] coma scale eye opening: Spontaneous [place] coma scale verbal response: Orientated [place] coma scale motor response: Obey commands [place] coma scale total score: 15 Citation: [place] Syncope Rule in Low risk group. HEART Score Heart Score history: Slightly Suspicious Heart Score EKG: Normal Heart Score Age: > or = 65 years old Heart Score risk factors: 1-2 risk factors Heart Score troponin: < or = to normal limit Heart Score Total: 3 NIH Stroke Scale Level of Conciousness: Alert, keenly responsive Ask month/age: Answers both questions correctly. Open/close eyes, close hand: Performs both tasks correctly Best gaze horizontal: Normal Visual abraham: No visual loss Facial palsy: Normal symetrical movement Left arm drift: No drift for full 10 sec Right arm drift: No drift for full 10 sec Left leg drift: No drift for full 5 sec Right leg drift: No drift for full 5 sec Limb ataxia: Absent Sensory on face/arms/legs: Normal, no sensory loss Best language: No aphasia, normal Dysarthria: Normal Extinction or inattention: No abnormality Total NIH Stroke scale score: 0 qSOFA Altered Mental Status (GCS <15): No Respiratory rate greater than/equal to 22: No Systolic blood pressure less than or equal to 100: No qSOFA Total: 0 0-1 Not High Risk 1-3 High risk Wells' Criteria for PE Clinical signs and symptoms of DVT: No PE is #1 Dx or equally likely: No Heart rate > 100: No Immobilization at least 3 days or surg in previous 4 weeks: No History of PE or DVT: No Hemoptysis: No Malignancy w/Treatment within 6 months or palliative: No Wells' PE Score total: 0 Course <CHRISTIAN Karimi - Last Filed: 10/19/20 21:34> Orders Ordered: Discontinued Medications Bacitracin (Bacitracin Oint 0.9 Gm Pckt) 1 applic TOP NOW ONE Stop: 10/19/20 13:19 Last Admin: 10/19/20 13:54 Dose: 1 applic Documented by: SCANSANDYO Sodium Chloride (Normal Saline 0.9%) 500 mls @ 1,000 mls/hr IV BOLUS ONE Stop: 10/19/20 14:03 Last Infusion: 10/19/20 16:10 Dose: 0 mls/hr Documented by: Admin: 10/19/20 13:55 Dose: 1,000 mls/hr Documented by: KATHY Ketorolac Tromethamine (Ketorolac 60 Mg/2 Ml Vial) 15 mg IV NOW ONE Stop: 10/19/20 16:42 Last Admin: 10/19/20 16:52 Dose: 15 mg Documented by: LEYDA Lidocaine/Sodium Bicarbonate (Lido 1%/Sod Bicarb 8.4% (10ml) 10 Ml Syringe) 10 ml INJ NOW ONE Stop: 10/19/20 13:19 Last Admin: 10/19/20 13:54 Dose: 10 ml Documented by: SCANSANDYO Reevaluation(s) Reevaluation #1: Patient in non acute distress at this time. Informed the patient and spouse on elevated D-dimer and chest CT added to rule out PE. Time: 14:40 Reevaluation #2: Patient reports feeling at his usual and ambulated well without chest pain, dizziness, or short of breath. Time: 16:00 Vital Signs Vital signs: Vital Signs - 8 hr 10/19/20 17:00 Pulse Rate 62 Respiratory Rate 16 Blood Pressure 165/83 H Pulse Oximetry 99 <Leo Vasquez DO - Last Filed: 10/20/20 00:11> Orders Ordered: Discontinued Medications Bacitracin (Bacitracin Oint 0.9 Gm Pckt) 1 applic TOP NOW ONE Stop: 10/19/20 13:19 Last Admin: 10/19/20 13:54 Dose: 1 applic Documented by: KATHY Sodium Chloride (Normal Saline 0.9%) 500 mls @ 1,000 mls/hr IV BOLUS ONE Stop: 10/19/20 14:03 Last Infusion: 10/19/20 16:10 Dose: 0 mls/hr Documented by: Admin: 10/19/20 13:55 Dose: 1,000 mls/hr Documented by: KATHY Ketorolac Tromethamine (Ketorolac 60 Mg/2 Ml Vial) 15 mg IV NOW ONE Stop: 10/19/20 16:42 Last Admin: 10/19/20 16:52 Dose: 15 mg Documented by: LEYDA Lidocaine/Sodium Bicarbonate (Lido 1%/Sod Bicarb 8.4% (10ml) 10 Ml Syringe) 10 ml INJ NOW ONE Stop: 10/19/20 13:19 Last Admin: 10/19/20 13:54 Dose: 10 ml Documented by: KATHY Vital Signs Vital signs: Vital Signs - 8 hr 10/19/20 17:00 Pulse Rate 62 Respiratory Rate 16 Blood Pressure 165/83 H Pulse Oximetry 99 MDM - Syncope <CHRISTIAN Karimi - Last Filed: 10/19/20 21:34> Differential Diagnosis Differential diagnosis: Likely syncope due to orthostatic hypotension and other (Arrhythmia, STEMI, NSTEMI, stroke, electrolyte imbalance, anemia, cardiac valve insufficiency, hypoglycemia, hypotension, DVT, cellulitis, fracture, laceration) Medical Records Attestation: I reviewed the patient's medical records. Lab Data Attestation: I reviewed the patient's lab results. Result diagrams: 10/19/20 12:00 10/19/20 12:00 Labs: Lab Results 10/19/20 10/19/20 10/19/20 Range/Units 12:00 12:00 13:48 WBC 10.6 (4.5-11.0) X10^3/uL RBC 4.84 (4.5-5.9) X10^6/uL Hgb 15.0 (13.5-17.5) g/dL Hct 44.1 (41-53) % MCV 91.1 (80-100) fL MCH 30.9 (26-34) PG MCHC 33.9 (30-36) % RDW 12.8 (11.6-14.8) % Plt Count 211 (150-400) X10^3/uL Neut % (Auto) 84.2 H (50-75) % Lymph % (Auto) 7.9 L (25-40) % Wright % (Auto) 7.4 (3-14) % Eos % (Auto) 0.3 L (2-4) % Baso % (Auto) 0.2 (0-2) % Neut # (Auto) 8900 H (7881-3661) /uL Lymph # (Auto) 800 L (0397-7317) /uL Wright # (Auto) 800 (0-900) /uL Eos # (Auto) 0 (0-450) /uL Baso # (Auto) 0 (0-100) /uL ESR (0-15) MM/HR D-Dimer 2292 H (<230) ng/mL Sodium 139 (137-145) mmol/L Potassium 4.2 (3.4-5.1) mmol/L Chloride 103 (98-107) mmol/L Carbon Dioxide 30 (22-32) mmol/L BUN 15 (9-20) mg/dL Creatinine 1.20 (0.66-1.25) mg/dL Estimated GFR > 60.0 (>60) mL/min BUN/Creatinine Ratio 12.5 (6-22) Glucose 135 H (80-110) mg/dL Lactate (0.7-2.1) mmol/L Calcium 9.6 (8.4-10.2) mg/dL Magnesium (1.6-2.3) mg/dL Total Creatine Kinase (55-170) U/L CK-MB (CK-2) (<2.37) ng/mL CK-MB (CK-2) Rel Index (1.5-5.0) % Troponin I (0.01-0.034) ng/mL C-Reactive Protein (<1.0) mg/dL 10/19/20 10/19/20 10/19/20 Range/Units 13:48 13:48 13:48 WBC (4.5-11.0) X10^3/uL RBC (4.5-5.9) X10^6/uL Hgb (13.5-17.5) g/dL Hct (41-53) % MCV (80-100) fL MCH (26-34) PG MCHC (30-36) % RDW (11.6-14.8) % Plt Count (150-400) X10^3/uL Neut % (Auto) (50-75) % Lymph % (Auto) (25-40) % Wright % (Auto) (3-14) % Eos % (Auto) (2-4) % Baso % (Auto) (0-2) % Neut # (Auto) (7477-3488) /uL Lymph # (Auto) (5312-3173) /uL Wright # (Auto) (0-900) /uL Eos # (Auto) (0-450) /uL Baso # (Auto) (0-100) /uL ESR 11 (0-15) MM/HR D-Dimer (<230) ng/mL Sodium (137-145) mmol/L Potassium (3.4-5.1) mmol/L Chloride (98-107) mmol/L Carbon Dioxide (22-32) mmol/L BUN (9-20) mg/dL Creatinine (0.66-1.25) mg/dL Estimated GFR (>60) mL/min BUN/Creatinine Ratio (6-22) Glucose (80-110) mg/dL Lactate 1.6 (0.7-2.1) mmol/L Calcium (8.4-10.2) mg/dL Magnesium 2.2 (1.6-2.3) mg/dL Total Creatine Kinase 117 (55-170) U/L CK-MB (CK-2) 1.44 (<2.37) ng/mL CK-MB (CK-2) Rel Index 1.2 L (1.5-5.0) % Troponin I < 0.012 (0.01-0.034) ng/mL C-Reactive Protein (<1.0) mg/dL 10/19/20 Range/Units 13:48 WBC (4.5-11.0) X10^3/uL RBC (4.5-5.9) X10^6/uL Hgb (13.5-17.5) g/dL Hct (41-53) % MCV (80-100) fL MCH (26-34) PG MCHC (30-36) % RDW (11.6-14.8) % Plt Count (150-400) X10^3/uL Neut % (Auto) (50-75) % Lymph % (Auto) (25-40) % Wright % (Auto) (3-14) % Eos % (Auto) (2-4) % Baso % (Auto) (0-2) % Neut # (Auto) (4005-6887) /uL Lymph # (Auto) (2108-5215) /uL Wright # (Auto) (0-900) /uL Eos # (Auto) (0-450) /uL Baso # (Auto) (0-100) /uL ESR (0-15) MM/HR D-Dimer (<230) ng/mL Sodium (137-145) mmol/L Potassium (3.4-5.1) mmol/L Chloride (98-107) mmol/L Carbon Dioxide (22-32) mmol/L BUN (9-20) mg/dL Creatinine (0.66-1.25) mg/dL Estimated GFR (>60) mL/min BUN/Creatinine Ratio (6-22) Glucose (80-110) mg/dL Lactate (0.7-2.1) mmol/L Calcium (8.4-10.2) mg/dL Magnesium (1.6-2.3) mg/dL Total Creatine Kinase (55-170) U/L CK-MB (CK-2) (<2.37) ng/mL CK-MB (CK-2) Rel Index (1.5-5.0) % Troponin I (0.01-0.034) ng/mL C-Reactive Protein 5.2 H (<1.0) mg/dL Imaging Data CT scan - head: Radiologist's Impression: [address] [id number] Scan ReportSigned Patient: Carolynn Rubi [facility]#: [id number]: 1Acct:[id number]/Sex: 70 / MDate of Service: 10/19/20Loc: EDAccession Number: [id number] Procedure: CT head/brain wo con Ordering Provider: Zaheer Dyer PROCEDURE: CT HEAD/BRAIN WO CON INDICATIONS: syncope TECHNIQUE: Noncontrast 4.5 mm thick angled axial sections acquired from the foramen magnum to the vertex, with coronal and sagittal reformats. For radiation dose reduction, the following was used: automated exposure control, adjustment of mA and/or kV according to patient size. COMPARISON: None. FINDINGS: Image quality: Excellent. CSF spaces: Basal cisterns are patent. No extra-axial fluid collections. Ventricles are normal in size and shape. Brain: No intracranial hemorrhage, mass, or mass effect. Cobos-white matter interface appears preserved. Skull and face: Calvarium and visualized facial bones are intact, without suspicious lesions. Sinuses: Visualized sinuses demonstrates mild mucosal thickening in the left sphenoid sinus. The mastoids are clear. IMPRESSION: 1. No acute intracranial abnormality. Dictated by: Robbie Mccoy M.D. on 10/19/2020 at 12:52 Approved by: Robbie Mccoy M.D. on 10/19/2020 at 12:55 XR-Hand RT: Radiologist's Impression: [address] [id number] ReportSigned Patient: Carolynn Rubi [facility]#: [id number]: 1950cct:[id number]/Sex: 70 / MDate of Service: 10/19/20Loc: EDAccession Number: [id number] Procedure: XR hand RT min 3V Ordering Provider: Zaheer Dyer PROCEDURE: XR HAND RT MIN 3V INDICATIONS: hand pain, swelling NOT FROM FALL HAPPENED LAST WEEK TECHNIQUE: 3 views of the hand(s) acquired. COMPARISON: None. FINDINGS: Bones: No acute fractures or dislocations. Carpal bones are normally aligned. No suspicious bony lesions. Soft tissues: No suspicious soft tissue calcifications. Mild soft tissue swelling over the dorsum of the hand. IMPRESSION: Mild soft tissue swelling over the dorsum of the hand but no acute trauma found. Dictated by: Bijan Colvin M.D. on 10/19/2020 at 13:22 Approved by: Bijan Colvin M.D. on 10/19/2020 at 13:23 Chest x-ray: Radiologist's Impression: [address] [id number] ReportSigned Patient: Carolynn Rubi [facility]#: [id number]: 1950cct:[id number]/Sex: 70 / MDate of Service: 10/19/20Loc: EDAccession Number: [id number] Procedure: XR chest 1V Ordering Provider: Zaheer Dyer PROCEDURE: XR CHEST 1V INDICATIONS: syncope TECHNIQUE: One view of the chest was acquired. COMPARISON: [facility], CHEST 1 VIEW, 04/20/2017, 21:59. [facility], CHEST 1 VIEW, 01/06/2016, 11:51. FINDINGS: Surgical changes and devices: None. Lungs and pleura: Lungs are clear. No pleural effusions or pneumothorax. Mediastinum: Mediastinal contours appear normal. Heart size is normal. Bones and chest wall: No suspicious bony lesions. Overlying soft tissues appear unremarkable. IMPRESSION: Normal for age, source of current syncope symptoms is not seen. Dictated by: Bijan Colvni M.D. on 10/19/2020 at 13:22 Approved by: Bijan Colvin M.D. on 10/19/2020 at 13:22 US - DVT: Radiologist's Impression: [address] [id number] ReportSigned Patient: Carolynn Rubi [facility]#: [id number]: 1950cct:[id number]/Sex: 70 / MDate of Service: 10/19/20Loc: EDAccession Number: [id number] Procedure: US periph venous up extrem rt Ordering Provider: Zaheer Dyer PROCEDURE: US PERIPH VENOUS UP EXTREM RT INDICATIONS: RIGHT HAND SWELLING/PAIN TECHNIQUE: Real-time imaging, as well as color and pulse Doppler interrogation, was performed of the right upper extremity deep veins from the inferior neck to the antecubital fossa. COMPARISON: None. FINDINGS: The internal jugular vein, visualized portions of the subclavian vein, axillary, and brachial veins are free of intraluminal thrombus. Where physically possible, the veins are normally compressible. Color and pulse Doppler demon strate normal intraluminal flow, with expected phasicity and pulsatility. Additional scanning of the cephalic and basilic veins of the superficial system demonstrate normal compressibility, without thrombus. IMPRESSION: No sonographic evidence of DVT Dictated by: Tio Santizo M.D. on 10/19/2020 at 13:34 Approved by: Tio Santizo M.D. on 10/19/2020 at 13:35 ECG Data Attestation: I personally reviewed and interpreted this ECG as follows: Prior ECG tracings: available for review Interpretation: Sinus rhythm rate at 66. Normal [place]. [place] interval 168, QRS duration 98, QT/QTC 410/429. No acute ST changes MDM Narrative Medical decision making narrative: This is a 70-year-old male with cardiac history presents to ED with syncopal episode this morning while getting out of the shower with dizziness and sustained a laceration on left barger and also has been having right hand pain and swelling for 4 days. Patient has history of syncopal episode due to hypotension. Patient did not endorse any other cardiac related symptoms prior syncope episode. Patient has intact sensation, mobility, pulses in right hand. Mid hand forearm mild erythema and warmth with fingers slightly cool and pale. Patient has been using volar splint for comfort continuously. Patient has a remote history of right wrist surgery. Spouse states patient has not been eating or drinking well due to right hand pain. EKG shows sinus rhythm rate at [address] changes. Cardiac enzymes were negative. Chest X without acute findings. Stable H&H of 15.0/44.1 but slightly elevated neutrophil of 84.2% without leukocytosis. With mildly elevated CRP of 5.2 and normal lactate. Unremarkable chemistry test. Cardiac enzymes were negative. Normal CPK. However, D-dimer was elevated of 2292. Wells risk factor for PE was negative but with elevated D dimer and syncopal episode, CT of chest obtained to rule out pulmonary embolism. Head CT was negative for acute findings. Hand x-ray shows no fractures or suspicious bony lesions. There is mild soft swelling over dorsum of the hand. DVT test was negative per US. Concerned for cellulitis but tests are not consistent with this with just mildly elevated nonspecific inflammatory marker of CRP. Spouse states patient has been using volar splint most of the time. Concerned for compartment syndrome from tight after application but phsycial exam is no consistent. Patient has history of osteoarthritis and could be an exacerbation after overuse of right hand. No stroke-like symptoms. GCS was 15. Heart score is 3. 0 NIH stroke scale. qSOFA score is 0. [place] syncopal score in low risk. Left barger laceration was repaired with 4 sutures. Please see procedure note. Patient felt well while in ED and he was ambulated without worsening symptoms. In shared decision making, patient would like to be discharged to home with significant findings with close follow-up. Dr. Wilson's office contacted and set up an appointment in [address] Lowery. Strict return precautions were discussed with patient and he verbalized understanding in agreement with treatment plan. <Leo Vasquez, DO - Last Filed: 10/20/20 00:11> Lab Data Labs: Lab Results 10/19/20 10/19/20 10/19/20 Range/Units 12:00 12:00 13:48 WBC 10.6 (4.5-11.0) X10^3/uL RBC 4.84 (4.5-5.9) X10^6/uL Hgb 15.0 (13.5-17.5) g/dL Hct 44.1 (41-53) % MCV 91.1 (80-100) fL MCH 30.9 (26-34) PG MCHC 33.9 (30-36) % RDW 12.8 (11.6-14.8) % Plt Count 211 (150-400) X10^3/uL Neut % (Auto) 84.2 H (50-75) % Lymph % (Auto) 7.9 L (25-40) % Wright % (Auto) 7.4 (3-14) % Eos % (Auto) 0.3 L (2-4) % Baso % (Auto) 0.2 (0-2) % Neut # (Auto) 8900 H (1297-6842) /uL Lymph # (Auto) 800 L (6488-7836) /uL Wright # (Auto) 800 (0-900) /uL Eos # (Auto) 0 (0-450) /uL Baso # (Auto) 0 (0-100) /uL ESR (0-15) MM/HR D-Dimer 2292 H (<230) ng/mL Sodium 139 (137-145) mmol/L Potassium 4.2 (3.4-5.1) mmol/L Chloride 103 (98-107) mmol/L Carbon Dioxide 30 (22-32) mmol/L BUN 15 (9-20) mg/dL Creatinine 1.20 (0.66-1.25) mg/dL Estimated GFR > 60.0 (>60) mL/min BUN/Creatinine Ratio 12.5 (6-22) Glucose 135 H (80-110) mg/dL Lactate (0.7-2.1) mmol/L Calcium 9.6 (8.4-10.2) mg/dL Magnesium (1.6-2.3) mg/dL Total Creatine Kinase (55-170) U/L CK-MB (CK-2) (<2.37) ng/mL CK-MB (CK-2) Rel Index (1.5-5.0) % Troponin I (0.01-0.034) ng/mL C-Reactive Protein (<1.0) mg/dL 10/19/20 10/19/20 10/19/20 Range/Units 13:48 13:48 13:48 WBC (4.5-11.0) X10^3/uL RBC (4.5-5.9) X10^6/uL Hgb (13.5-17.5) g/dL Hct (41-53) % MCV (80-100) fL MCH (26-34) PG MCHC (30-36) % RDW (11.6-14.8) % Plt Count (150-400) X10^3/uL Neut % (Auto) (50-75) % Lymph % (Auto) (25-40) % Wright % (Auto) (3-14) % Eos % (Auto) (2-4) % Baso % (Auto) (0-2) % Neut # (Auto) (8494-4529) /uL Lymph # (Auto) (3419-2542) /uL Wright # (Auto) (0-900) /uL Eos # (Auto) (0-450) /uL Baso # (Auto) (0-100) /uL ESR 11 (0-15) MM/HR D-Dimer (<230) ng/mL Sodium (137-145) mmol/L Potassium (3.4-5.1) mmol/L Chloride (98-107) mmol/L Carbon Dioxide (22-32) mmol/L BUN (9-20) mg/dL Creatinine (0.66-1.25) mg/dL Estimated GFR (>60) mL/min BUN/Creatinine Ratio (6-22) Glucose (80-110) mg/dL Lactate 1.6 (0.7-2.1) mmol/L Calcium (8.4-10.2) mg/dL Magnesium 2.2 (1.6-2.3) mg/dL Total Creatine Kinase 117 (55-170) U/L CK-MB (CK-2) 1.44 (<2.37) ng/mL CK-MB (CK-2) Rel Index 1.2 L (1.5-5.0) % Troponin I < 0.012 (0.01-0.034) ng/mL C-Reactive Protein (<1.0) mg/dL 10/19/20 Range/Units 13:48 WBC (4.5-11.0) X10^3/uL RBC (4.5-5.9) X10^6/uL Hgb (13.5-17.5) g/dL Hct (41-53) % MCV (80-100) fL MCH (26-34) PG MCHC (30-36) % RDW (11.6-14.8) % Plt Count (150-400) X10^3/uL Neut % (Auto) (50-75) % Lymph % (Auto) (25-40) % Wright % (Auto) (3-14) % Eos % (Auto) (2-4) % Baso % (Auto) (0-2) % Neut # (Auto) (2045-0361) /uL Lymph # (Auto) (4976-6012) /uL Wright # (Auto) (0-900) /uL Eos # (Auto) (0-450) /uL Baso # (Auto) (0-100) /uL ESR (0-15) MM/HR D-Dimer (<230) ng/mL Sodium (137-145) mmol/L Potassium (3.4-5.1) mmol/L Chloride (98-107) mmol/L Carbon Dioxide (22-32) mmol/L BUN (9-20) mg/dL Creatinine (0.66-1.25) mg/dL Estimated GFR (>60) mL/min BUN/Creatinine Ratio (6-22) Glucose (80-110) mg/dL Lactate (0.7-2.1) mmol/L Calcium (8.4-10.2) mg/dL Magnesium (1.6-2.3) mg/dL Total Creatine Kinase (55-170) U/L CK-MB (CK-2) (<2.37) ng/mL CK-MB (CK-2) Rel Index (1.5-5.0) % Troponin I (0.01-0.034) ng/mL C-Reactive Protein 5.2 H (<1.0) mg/dL Discharge Plan Departure Patient Disposition: Home Clinical Impression: Hand pain, right Syncope Qualifiers: Syncope type: unspecified Qualified Code(s): R55 - Syncope and collapse Laceration of leg Qualifiers: Encounter type: initial encounter Laterality: left Qualified Code(s): S81.812A - Laceration without foreign body, left lower leg, initial encounter Instructions: DI for Syncope in Adults (Fainting), DI for Laceration Repair, DI for Hand Pain Activity Restrictions/Additional Instructions: You have been diagnosed with [syncopal episode with sustained left barger laceration which was repaired with 4 sutures. Right hand pain and swelling. The cause of syncope and right hand pain and swelling are not clear. Lab tests, imaging tests are assuring. EKG sinus rhythm and negative cardiac enzymes.]. What to do: *Take your medications as directed. Please add Tylenol and or Motrin as needed for discomfort on your right hand. Please take Motrin with food to decrease GI irritations. Please date affected hand above chest level while at rest. Use hand splint as needed if you have to use hand. *Follow up with your primary care provider in [address] Lowery at the office. Your appointment was made at 940 am. Please call the office to confirm the appointment tomorrow. Let them know you were seen in the ED and that we asked you to be seen in follow up. Please do not get your wound soaked in the water until suture removal. Keep your dressing intact for next 24 hrs. After then, you could remove your dressing, wash with soap and water. Pat dry with clean paper towel and dress it with antibiotic ointment. You can change dressing as needed and daily. Please monitor for signs and symptoms for infection such as increasing redness, swelling, warmth, pain, fever, purulent discharge. If this occurs, please return to ED or follow up with your primary care physician since your wound may be gotten infected. Please follow up with your primary care provider in 2-3 days for recheck wound. Your suture should be removed [ 10-14 ] days. This can be done by your primary provider, walk-in clinic or here in ED. Please keep your wound clean, dry and intact all times. *Return to ED if you have any new, worsening, or concerning symptoms, such as [s ign and symptoms for infection as stated above, chest pain, syncopal episode, breathing difficulty, fever, increasing redness/warmth/pain/swelling on affected hand, tingling/numbness/weakness to affected hand, or any acute concerns]. Prescriptions: No Action atorvastatin 80 mg Tablet 80 mg PO BEDTIME RF: 0 gabapentin 300 mg Capsule 300 mg PO BID RF: 0 aspirin 81 mg Tablet,Chewable 81 mg PO DAILY RF: 0 gabapentin 100 mg Capsule 100 mg PO BID RF: 0 venlafaxine 75 mg Tablet 75 mg PO BID RF: 0 oxycodone-acetaminophen [Percocet] 5-325 mg tablet 1 tab PO Q4H PRN (Reason: pain) Qty: 10 RF: 0 Referrals: Fidel Wilson MD [Primary Care Provider] - <Leo Vasquez DO - Last Filed: 10/20/20 00:11> [facility] I was immediately available in the department for consultation. This documen tation has been reviewed and I agree with assessment and plan. Supervised by Leo Vasquez DO
[2020-10-19] MEDS: LIDO 1%/SOD BICARB 8.4% (10ML) 10 ML SYRINGE INJ (13:54)
[2020-10-19] MEDS: BACITRACIN OINT 0.9 GM PCKT 1 APPLIC TOP (13:54)
[2020-10-19] MEDS: SODIUM CHLORIDE 0.9% 500 ML 1000 ML IV (13:55)
[2020-10-19 14:01] LABS: Creatine Kinase 117 U/L (55-170); Lactate (Lactic Acid) 1.6 mmol/L (0.7-2.1); Magnesium 2.2 mg/dL (1.6-2.3)
[2020-10-19 14:04] LABS: D Dimer 2292 ng/mL (<230)
[2020-10-19 14:05] LABS: C-Reactive Protein Quant 5.2 mg/dL (<1.0)
[2020-10-19 14:12] LABS: Troponin I < 0.012 ng/mL (0.01-0.034)
[2020-10-19 14:16] LABS: CKMB % Relative Index 1.2 % (1.5-5.0); Creatine Kinase MB 1.44 ng/mL (<2.37)
[2020-10-19 14:29] LABS: Erythrocyte Sedimentation Rate 11 MM/HR (0-15)
--- NOTE | 2020-10-19 14:52 | DI.CT.S_ITS ---
PROCEDURE: CT ANGIO CHEST PE PROTOCOL INDICATIONS: Syncope with elevated D-dimer TECHNIQUE: After the administration of intravenous contrast, 2 mm thick sections acquired from the pulmonary apices to the posterior costophrenic angles. 3-dimensional maximum intensity projection (MIP) coronal and sagittal reformats were then acquired through the thorax. For radiation dose reduction, the following was used: automated exposure control, adjustment of mA and/or kV according to patient size. COMPARISON: None. FINDINGS: Image quality: Excellent. Pulmonary arteries: Pulmonary arteries are normal in size, and demonstrate no intraluminal filling defects to suggest central pulmonary embolism. Lungs and pleura: Dependent atelectasis in posterior aspect of bilateral lower lobes are seen. No acute airspace opacities. No pleural effusions or pneumothorax. Central and peripheral airways are patent. Mediastinum: Heart size is mildly enlarged, without pericardial effusion. No mediastinal or hilar adenopathy. Mild to moderate amount of atherosclerotic calcifications are seen. Thoracic aorta is normal in caliber and enhancement. Esophagus is normal in caliber, with a small hiatal hernia. Bones and chest wall: No suspicious bony lesions. Ribs and thoracic spine appear intact throughout. Thyroid gland is unremarkable.. No axillary or supraclavicular adenopathy. Abdomen: Visualized upper abdominal solid organs shows fairly well-circumscribed hypodensities seen in right hepatic lobe and measures 1.3 x 0.8 cm and 1.5 x 1.1 cm in size and likely represent hepatic cysts. Visualized portion of spleen, pancreas, and gallbladder show no gross abnormality. IMPRESSION: 1. No evidence of pulmonary emboli. No thoracic aortic aneurysm or dissection. 2. Borderline cardiomegaly. No mediastinal or hilar lymphadenopathy. 3. Dependent atelectasis in posterior bilateral lower lobes. No focal infiltrate, pleural effusion or pneumothorax. Airway is patent. 4. Small hypodense areas in the liver as above, likely represent hepatic cysts. Dictated by: Rehan Barney M.D. on 10/19/2020 at 15:21 Approved by: Rehan Barney M.D. on 10/19/2020 at 15:43
[2020-10-19] MEDS: KETOROLAC 60 MG/2 ML VIAL 15 MG IV (16:52)
== END 2020-10-19 17:10 | disposition home or self-care (01) ==
PROVIDERS: Emergency Medicine; Emergency Provider Nurse Practitioner Family; Family Provider Internal Medicine; PCP Internal Medicine
DX: R55 Syncope and collapse (principal); M79.641 Pain in right hand; S81.812A Laceration without foreign body, left lower leg, initial encounter; I25.10 Atherosclerotic heart disease of native coronary artery without angina pectoris; I10 Essential (primary) hypertension; W19.XXXA Unspecified fall, initial encounter
CPT/HCPCS: 12002; 70450; 71045; 71275; 73130; 80048; 82550; 82553; 83605; 83735; 84484; 85025; 85379; 85651; 86140; 93005; 93010; 93971; 96361; 96374; 99281; 99284; J1885; Q9967

== ENCOUNTER → 2020-10-27 11:13 | Outpatient (CLI) | payer MEDICARE, SELFPAY ==
[2020-10-27 13:45] LABS: Alanine Aminotransferase 14 IU/L (<50); Albumin 3.9 g/dL (3.5-5.0); Albumin Globulin Ratio 1.3 (1.0-2.8); Alkaline Phosphatase 69 U/L (38-126); Aspartate Aminotransferase 19 IU/L (17-59); BUN Creatinine Ratio 17.4 (6-22); Bilirubin Total 0.4 mg/dL (0.2-1.3); Blood Urea Nitrogen 15 mg/dL (9-20); Calcium 9.3 mg/dL (8.4-10.2); Carbon Dioxide 29 mmol/L (22-32); Chloride 106 mmol/L (98-107); Cholesterol 181 mg/dL (140-199); Estimated Glomerular Filt Rate > 60.0 mL/min (>60); Glucose 102 mg/dL (80-110); HDL Cholesterol 44 mg/dL (40-60); HEMOLYSIS < 15 (0-50); LDL Cholesterol Calculated 118 mg/dL (<100); Sodium 140 mmol/L (137-145); Total Protein 6.9 g/dL (6.3-8.2); Triglycerides 96 mg/dL (35-150)
== END ==
PROVIDERS: Family Provider Internal Medicine; PCP Internal Medicine; Referring Provider Internal Medicine; Visit Provider Internal Medicine
DX: I25.10 Atherosclerotic heart disease of native coronary artery without angina pectoris (principal); E78.2 Mixed hyperlipidemia
CPT/HCPCS: 36415; 80053; 80061

== ENCOUNTER → 2020-11-03 15:00 | Outpatient (CLI) | payer MEDICARE, SELFPAY ==
--- NOTE | 2020-11-30 11:12 | PM.CARDMON.1 ---
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 Referral & Results Date Patient Seen: 11/03/20 Requesting provider: Fidel Wilson Indication: Syncope Duration of monitoring (days): 14 Diary information: There was 1 patient diary entry reported, associated with sinus rhythm and a run of SVT Data: Minimum heart rate identified was 45 beats per minute at 07:30 on 11/10/2020 Maximum sinus heart rate was 110 beats per minute at 21:24 on 11/15/2020 Maximum overall heart rate was 139 beats per minute at 14:29 on 11/13/2020 during a run of SVT Less than 1% of identified beats or either ventricular supraventricular ectopic in origin Patient had 12 runs of SVT including a 41 minutes 55 2nd run at a rate of 139 beats per minute at maximum, averaging 141 beats per minute. The fastest run of SVT was also the longest. Some episodes of SVT may be sinus tachycardia with aberrancy
== END ==
PROVIDERS: Family Provider Internal Medicine; PCP Internal Medicine; Referring Provider Internal Medicine; Visit Provider Internal Medicine
DX: R55 Syncope and collapse (principal)
CPT/HCPCS: 0296T; 0298T

== ENCOUNTER → 2021-02-05 10:57 | Outpatient (CLI) | payer MEDICARE, SELFPAY ==
[2021-02-05] MEDS: COVID-19 VACC, Ad26(JANSSEN)/PF 0.5 ML IM (11:14)
== END ==
PROVIDERS: Family Provider Internal Medicine; PCP Internal Medicine; Visit Provider Internal Medicine
DX: Z23 Encounter for immunization (principal)
CPT/HCPCS: 0031A; 91303

== ENCOUNTER → 2021-07-12 10:35 | Outpatient (CLI) | payer OTHER, SELFPAY ==
[2021-07-12 11:32] LABS: Cholesterol 178 mg/dL (140-199); HDL Cholesterol 56 mg/dL (40-60); LDL Cholesterol Calculated 109 mg/dL (<100); Triglycerides 63 mg/dL (35-150)
== END ==
PROVIDERS: Family Provider Internal Medicine; PCP Internal Medicine; Referring Provider Internal Medicine Cardiovascular Disease; Visit Provider Internal Medicine Cardiovascular Disease
DX: E78.5 Hyperlipidemia, unspecified (principal)
CPT/HCPCS: 36415; 80061

== ENCOUNTER → 2021-08-10 10:09 | Outpatient (CLI) | payer OTHER, SELFPAY ==
[2021-08-10 11:43] LABS: BUN Creatinine Ratio 17.4 (6-22); Blood Urea Nitrogen 15 mg/dL (9-20); Calcium 9.2 mg/dL (8.4-10.2); Carbon Dioxide 27 mmol/L (22-32); Chloride 105 mmol/L (98-107); Estimated Glomerular Filt Rate > 60.0 mL/min (>60); Glucose 96 mg/dL (80-110); HEMOLYSIS < 15 (0-50); Potassium 4.2 mmol/L (3.4-5.1); Sodium 139 mmol/L (137-145)
== END ==
PROVIDERS: Family Provider Internal Medicine; PCP Internal Medicine; Referring Provider Internal Medicine Cardiovascular Disease; Visit Provider Internal Medicine Cardiovascular Disease
DX: I10 Essential (primary) hypertension (principal)
CPT/HCPCS: 36415; 80048

== ENCOUNTER 2022-09-16 11:45 | Emergency (ER) | payer MEDICARE, SELFPAY ==
[2022-09-16] VITALS (9 sets, daily range): BP systolic 104–129; BP diastolic 59–73; PULSE 76–85; RESP 15–21; TEMP 36.8; O2SAT 91–97; BMI 27.7
--- NOTE | 2022-09-16 11:56 | DI.RAD.S_ITS ---
PROCEDURE: XR CHEST 1V INDICATIONS: chest pain TECHNIQUE: One view of the chest was acquired. COMPARISON: [facility], CR, XR CHEST 1V, 10/19/2020, 12:45. FINDINGS: Surgical changes and devices: None. Lungs and pleura: Lungs are clear. No pleural effusions or pneumothorax. Mediastinum: Mediastinal contours appear normal. Heart size is normal. Bones and chest wall: No suspicious bony lesions. Overlying soft tissues appear unremarkable. IMPRESSION: No acute cardiopulmonary findings. Dictated by: Piedad Nesbitt M.D. on 09/16/2022 at 12:36 Approved by: Piedad Nesbitt M.D. on 09/16/2022 at 12:36
[2022-09-16 12:14] LABS: Add Manual Diff / Slide Review NO; Basophils Absolute Auto 0 /uL (0-100); Basophils Percent Auto 0.1 % (0-2); Eosinophils Absolute Auto 0 /uL (0-450); Eosinophils Percent Auto 0.3 % (2-4); Hemoglobin 16.3 g/dL (13.5-17.5); Lymphocytes Absolute Auto 1100 /uL (1100-4500); Lymphocytes Percent Auto 11.9 % (25-40); Mean Corpuscular HGB Conc 33.3 % (30-36); Mean Corpuscular Hemoglobin 30.1 PG (26-34); Mean Corpuscular Volume 90.3 fL (80-100); Monocytes Absolute Auto 400 /uL (0-900); Monocytes Percent Auto 4.2 % (3-14); Neutrophils Absolute Auto 8000 /uL (1500-7000); Neutrophils Percent Auto 83.5 % (50-75); Platelet Count 224 X10^3/uL (150-400); Red Blood Cell Count 5.43 X10^6/uL (4.5-5.9); Red Cell Distribution Width 13.2 % (11.6-14.8); White Blood Cell Count 9.5 X10^3/uL (4.5-11.0)
--- NOTE | 2022-09-16 12:28 | DI.CT.S_ITS ---
PROCEDURE: CT HEAD/BRAIN WO CON INDICATIONS: syncope TECHNIQUE: Noncontrast 4.5 mm thick angled axial sections acquired from the foramen magnum to the vertex, with coronal and sagittal reformats. For radiation dose reduction, the following was used: automated exposure control, adjustment of mA and/or kV according to patient size. COMPARISON: [facility], CT, CT HEAD/BRAIN WO CON, 10/19/2020, 12:37. FINDINGS: Image quality: Excellent. CSF spaces: Basal cisterns are patent. No extra-axial fluid collections. Ventricles are normal in size and shape. Brain: No midline shift. No intracranial masses or hemorrhage. Cobos-white matter interface is normal. Skull and face: Calvarium and visualized facial bones are intact, without suspicious lesions. Sinuses: Visualized sinuses and mastoids are clear. IMPRESSION: No acute disease found. Source of syncopal episode is not seen. No trauma from syncope is identified. Dictated by: iBjan Colvin M.D. on 09/16/2022 at 13:40 Approved by: Bijan Colvin M.D. on 09/16/2022 at 13:42
--- NOTE | 2022-09-16 12:28 | ED.SYNCOPE ---
HPI - Syncope General Chief Complaint: Syncope Stated Complaint: Syncopal Time Seen by Provider: 09/16/22 12:00 Source: patient and EMS Mode of arrival: EMS Limitations: no limitations History of Present Illness HPI narrative: Patient is a 72-year-old male history of hypertension, coronary artery disease, anxiety presenting today with rash and syncopal episode. He says he has had a rash on the palm of his hands for about 2 weeks. However overnight is spread to his torso and extremities. He said initially was quite itchy now it is not. He was feeling a little lightheaded upon ambulation went to talk to his room a about going to the emergency department when he probably passed put. He really has not felt quite right. He denies any circular lesions no recent hiking or camping no tick bites he has not had any fever or chills, no new medications. He has no chest pain palpitations or shortness of breath. As patient has been seen by Dermatology. He had a biopsy done a. He actually called the biomass technician today to states that he was not feeling well who off recommended that he go to the emergency department. Related Data Home Medications Medication Instructions Recorded Confirmed aspirin 81 mg chewable tablet 81 mg PO DAILY 10/11/18 10/03/19 atorvastatin 80 mg tablet 80 mg PO BEDTIME 10/11/18 10/03/19 gabapentin 100 mg capsule 100 mg PO BID 10/11/18 10/03/19 gabapentin 300 mg capsule 300 mg PO BID 10/11/18 10/03/19 venlafaxine 75 mg tablet 75 mg PO BID 10/11/18 10/03/19 Previous Rx's Medication Instructions Recorded oxycodone-acetaminophen 5 mg-325 1 tab PO Q4H PRN pain #10 tabs 10/03/19 mg tablet (Percocet) Allergies Allergy/AdvReac Type Severity Reaction Status Date / Time Penicillins [PENICILLINS] Allergy Severe I WILL Verified 10/03/19 14:42 , childhood rn hydrocodone AdvReac Severe pass out Verified 10/03/19 14:42 Review of Systems Review of Systems Narrative: GENERAL: Denies chills, fatigue, malaise, fever, sweats, travel HEENT: Denies sinus pain, ear pain, sore throat, difficulty swallowing, neck pain RESPIRATORY: Denies dyspnea, cough, wheezing, hemoptysis, sputum. CARDIOVASCULAR: Syncope GASTROINTESTINAL: Denies nausea, vomiting, abdominal pain, diarrhea, constipation, melena. : Denies dysuria, frequency, incontinence, hematuria, urinary retention, flank pain. MUSCULOSKELETAL: Denies weakness, joint pain, or bony pain SKIN: See HPI NEUROLOGIC: Denies weakness, dizziness, headache, numbness, change in speech, confusion PSYCHIATRIC: No concerning psychosocial issues. 12 point review of systems is negative except for those stated above and HPI Patient History Medical History Anxiety disorder Benign heart murmur Chronic back pain Coronary artery disease Depression History of coronary angiogram Hyperlipidemia Hypertension Myocardial infarction (04/20/17) Osteoarthritis Peripheral neuropathy Surgical History History of arthroscopy History of arthroscopy of knee History of colonoscopy Social History household members: none Smoking Status: Never smoker alcohol intake: current Smoking Status: Never smoker alcohol intake frequency: 0-2 drinks per day Alcohol type: beer Substance Use Type: does not use Exam Initial Vital Signs Initial Vital Signs: Vital Signs Temperature 98.2 F 09/16/22 11:57 Pulse Rate 80 09/16/22 11:57 Respiratory Rate 18 09/16/22 11:57 Blood Pressure 104/73 09/16/22 11:57 Pulse Oximetry 97 09/16/22 11:57 Oxygen Delivery Method 09/16/22 11:57 GENERAL: Alert pleasant 72-year-old and in no acute distress. HEENT: Head atraumatic,EOMI, pupils reactive, face symmetric, moist mucous membranes CARDIOVASCULAR: Regular rate and rhythm without murmurs, rubs or gallops. RESPIRATORY: Breath sounds equal bilaterally, no wheezes rales or rhonchi. ABDOMEN: Soft, nontender. Normoactive bowel sounds all 4 quadrants. No guarding or rebound. EXTREMITIES: Normal range of motion, no clubbing or edema. Neurovascularly intact NEUROLOGICAL: Alert and oriented x4. Construction Assistant strength equal bilaterally finger noted SKIN: Blanchable rash erythematous Scores NIH Stroke Scale Level of Conciousness: Alert, keenly responsive Ask month/age: Answers both questions correctly. Open/close eyes, close hand: Performs both tasks correctly Best gaze horizontal: Normal Visual abraham: No visual loss Facial palsy: Normal symetrical movement Left arm drift: No drift for full 10 sec Right arm drift: No drift for full 10 sec Left leg drift: No drift for full 5 sec Right leg drift: No drift for full 5 sec Limb ataxia: Absent Sensory on face/arms/legs: Normal, no sensory loss Best language: No aphasia, normal Dysarthria: Normal Extinction or inattention: No abnormality Total NIH Stroke scale score: 0 Course Orders Ordered: ED Orders 09/16/22 11:45 Complete Blood Count AUTO DIFF Stat Comprehensive Metabolic Panel Stat Lactate (Lactic Acid) Stat Lipase Stat Magnesium Stat Procalcitonin Stat Troponin & CK Cardiac Panel Stat 09/16/22 11:56 XR chest 1V Stat EKG-12 Lead Stat 09/16/22 12:28 CT head/brain wo con Stat 09/16/22 12:30 Blood Culture Stat 09/16/22 12:55 COVID19 -Nasal RAPID/Pre-Proc Stat 09/16/22 12:58 GI Panel (Film Array) Stat Discontinued Medications Diphenhydramine HCl (Diphenhydramine 50 Mg/Ml Vial) 25 mg IV NOW ONE Stop: 09/16/22 14:21 Last Admin: 09/16/22 14:41 Dose: 25 mg Documented By: MECCA Famotidine (Famotidine 20 Mg/2 Ml Vial) 20 mg IV NOW HEATHER Last Admin: 09/16/22 14:41 Dose: 20 mg Documented By: MECCA Sodium Chloride (Normal Saline 0.9%) 1,000 mls @ 1,000 mls/hr IV BOLUS ONE Stop: 09/16/22 12:59 Last Infusion: 09/16/22 15:54 Dose: 0 mls/hr Documented By: Admin: 09/16/22 14:16 Dose: 1,000 mls/hr Documented By: MECCA Methylprednisolone (Methylprednisolone 125 Mg/2 Ml Vial) 125 mg IV NOW ONE Stop: 09/16/22 14:21 Last Admin: 09/16/22 14:41 Dose: 125 mg Documented By: MECCA Vital Signs Vital signs: Vital Signs - 8 hr 09/16/22 11:57 09/16/22 12:23 09/16/22 12:24 Temperature 98.2 F Pulse Rate 80 85 85 Respiratory Rate 18 21 Blood Pressure 104/73 Pulse Oximetry 97 97 97 Oxygen Delivery Method Room Air 09/16/22 12:24 09/16/22 12:30 09/16/22 13:33 Temperature Pulse Rate 85 76 Respiratory Rate 15 Blood Pressure 119/64 Pulse Oximetry 95 Oxygen Delivery Method 09/16/22 14:00 09/16/22 14:17 09/16/22 14:17 Temperature Pulse Rate 80 79 Respiratory Rate 20 15 Blood Pressure 129/59 L Pulse Oximetry 96 94 Oxygen Delivery Method 09/16/22 14:30 09/16/22 14:30 09/16/22 15:00 Temperature Pulse Rate 79 Respiratory Rate 18 Blood Pressure 114/59 L 116/59 L Pulse Oximetry 91 Oxygen Delivery Method 09/16/22 15:00 Temperature Pulse Rate 79 Respiratory Rate 20 Blood Pressure Pulse Oximetry 94 Oxygen Delivery Method MDM - Syncope Lab Data Result diagrams: 09/16/22 11:45 09/16/22 11:45 Labs: Lab Results 09/16/22 09/16/22 09/16/22 Range/Units 11:45 11:45 11:45 WBC 9.5 (4.5-11.0) X10^3/uL RBC 5.43 (4.5-5.9) X10^6/uL Hgb 16.3 (13.5-17.5) g/dL Hct 49.0 (41-53) % MCV 90.3 (80-100) fL MCH 30.1 (26-34) PG MCHC 33.3 (30-36) % RDW 13.2 (11.6-14.8) % Plt Count 224 (150-400) X10^3/uL Neut % (Auto) 83.5 H (50-75) % Lymph % (Auto) 11.9 L (25-40) % Gillespie % (Auto) 4.2 (3-14) % Eos % (Auto) 0.3 L (2-4) % Baso % (Auto) 0.1 (0-2) % Neut # (Auto) 8000 H (7904-0484) /uL Lymph # (Auto) 1100 (5211-1783) /uL Gillespie # (Auto) 400 (0-900) /uL Eos # (Auto) 0 (0-450) /uL Baso # (Auto) 0 (0-100) /uL Sodium 138 (137-145) mmol/L Potassium 4.2 (3.4-5.1) mmol/L Chloride 103 (98-107) mmol/L Carbon Dioxide 25 (22-32) mmol/L BUN 20 (9-20) mg/dL Creatinine 0.89 (0.66-1.25) mg/dL Estimated GFR > 60 (>60) mL/min BUN/Creatinine Ratio 22.5 H (6-22) Glucose 140 H (80-110) mg/dL Lactate 2.3 H (0.7-2.1) mmol/L Calcium 8.9 (8.4-10.2) mg/dL Magnesium 1.7 (1.6-2.3) mg/dL Total Bilirubin 0.7 (0.2-1.3) mg/dL AST 27 (17-59) IU/L ALT 20 (<50) IU/L Alkaline Phosphatase 75 (38-126) U/L Total Creatine Kinase 61 (55-170) U/L CK-MB (CK-2) TNP CK-MB (CK-2) Rel Index TNP Troponin I < 0.012 (0.01-0.034) ng/mL Total Protein 6.9 (6.3-8.2) g/dL Albumin 3.9 (3.5-5.0) g/dL Globulin 3.0 (1.7-4.1) g/dL Albumin/Globulin Ratio 1.3 (1.0-2.8) Lipase 135 (23-300) U/L Procalcitonin (<0.5) ng/mL Stl C. cayetanensis PCR (Not Detect) Stool Rotavirus (PCR) (Not Detect) Stool Adenovirus (PCR) (Not Detect) Stool Astrovirus (PCR) (Not Detect) Stool Cryptosporidium PCR (Not Detect) Stl E.coli Shiga Tox PCR (Not Detect) St Sh/Enteroin Ecoli PCR (Not Detect) Stool E coli O157 PCR Stl Enterotoxigenic E PCR (Not Detect) Stool EPEC (PCR) (Not Detect) Stl E. histolytica PCR (Not Detect) Stool Giardia Lamblia PCR (Not Detect) Stool Sapovirus (PCR) (Not Detect) Stl P. shigelloides PCR (Not Detect) St Y.enterocolitica PCR (Not Detect) Stool Vibrio (PCR) (Not Detect) Stl Vibrio cholerae PCR (Not Detect) Stl Enteroaggr Ecoli PCR (Not Detect) Stl Norovirus GI/GII PCR (Not Detect) Campylobacter (PCR) (Not Detect) C. difficile Tox (PCR) (Not Detect) SARS-CoV-2 (PCR) (Negative) Salmonella (PCR) (Not Detect) 09/16/22 09/16/22 09/16/22 Range/Units 11:45 12:55 12:58 WBC (4.5-11.0) X10^3/uL RBC (4.5-5.9) X10^6/uL Hgb (13.5-17.5) g/dL Hct (41-53) % MCV (80-100) fL MCH (26-34) PG MCHC (30-36) % RDW (11.6-14.8) % Plt Count (150-400) X10^3/uL Neut % (Auto) (50-75) % Lymph % (Auto) (25-40) % Gillespie % (Auto) (3-14) % Eos % (Auto) (2-4) % Baso % (Auto) (0-2) % Neut # (Auto) (1261-2329) /uL Lymph # (Auto) (5940-5665) /uL Gillespie # (Auto) (0-900) /uL Eos # (Auto) (0-450) /uL Baso # (Auto) (0-100) /uL Sodium (137-145) mmol/L Potassium (3.4-5.1) mmol/L Chloride (98-107) mmol/L Carbon Dioxide (22-32) mmol/L BUN (9-20) mg/dL Creatinine (0.66-1.25) mg/dL Estimated GFR (>60) mL/min BUN/Creatinine Ratio (6-22) Glucose (80-110) mg/dL Lactate (0.7-2.1) mmol/L Calcium (8.4-10.2) mg/dL Magnesium (1.6-2.3) mg/dL Total Bilirubin (0.2-1.3) mg/dL AST (17-59) IU/L ALT (<50) IU/L Alkaline Phosphatase (38-126) U/L Total Creatine Kinase (55-170) U/L CK-MB (CK-2) CK-MB (CK-2) Rel Index Troponin I (0.01-0.034) ng/mL Total Protein (6.3-8.2) g/dL Albumin (3.5-5.0) g/dL Globulin (1.7-4.1) g/dL Albumin/Globulin Ratio (1.0-2.8) Lipase (23-300) U/L Procalcitonin 0.06 (<0.5) ng/mL Stl C. cayetanensis PCR Not detected (Not Detect) Stool Rotavirus (PCR) Not detected (Not Detect) Stool Adenovirus (PCR) Not detected (Not Detect) Stool Astrovirus (PCR) Not detected (Not Detect) Stool Cryptosporidium PCR Not detected (Not Detect) Stl E.coli Shiga Tox PCR Not detected (Not Detect) St Sh/Enteroin Ecoli PCR Not detected (Not Detect) Stool E coli O157 PCR Not Reportable Stl Enterotoxigenic E PCR Not detected (Not Detect) Stool EPEC (PCR) Not detected (Not Detect) Stl E. histolytica PCR Not detected (Not Detect) Stool Giardia Lamblia PCR Not detected (Not Detect) Stool Sapovirus (PCR) Not detected (Not Detect) Stl P. shigelloides PCR Not detected (Not Detect) St Y.enterocolitica PCR Not detected (Not Detect) Stool Vibrio (PCR) Not detected (Not Detect) Stl Vibrio cholerae PCR Not detected (Not Detect) Stl Enteroaggr Ecoli PCR Not detected (Not Detect) Stl Norovirus GI/GII PCR Not detected (Not Detect) Campylobacter (PCR) Not detected (Not Detect) C. difficile Tox (PCR) Not detected (Not Detect) SARS-CoV-2 (PCR) Negative (Negative) Salmonella (PCR) Not detected (Not Detect) 09/16/22 Range/Units 14:56 WBC (4.5-11.0) X10^3/uL RBC (4.5-5.9) X10^6/uL Hgb (13.5-17.5) g/dL Hct (41-53) % MCV (80-100) fL MCH (26-34) PG MCHC (30-36) % RDW (11.6-14.8) % Plt Count (150-400) X10^3/uL Neut % (Auto) (50-75) % Lymph % (Auto) (25-40) % Gillespie % (Auto) (3-14) % Eos % (Auto) (2-4) % Baso % (Auto) (0-2) % Neut # (Auto) (5889-9817) /uL Lymph # (Auto) (2520-1052) /uL Gillespie # (Auto) (0-900) /uL Eos # (Auto) (0-450) /uL Baso # (Auto) (0-100) /uL Sodium (137-145) mmol/L Potassium (3.4-5.1) mmol/L Chloride (98-107) mmol/L Carbon Dioxide (22-32) mmol/L BUN (9-20) mg/dL Creatinine (0.66-1.25) mg/dL Estimated GFR (>60) mL/min BUN/Creatinine Ratio (6-22) Glucose (80-110) mg/dL Lactate 1.4 (0.7-2.1) mmol/L Calcium (8.4-10.2) mg/dL Magnesium (1.6-2.3) mg/dL Total Bilirubin (0.2-1.3) mg/dL AST (17-59) IU/L ALT (<50) IU/L Alkaline Phosphatase (38-126) U/L Total Creatine Kinase (55-170) U/L CK-MB (CK-2) CK-MB (CK-2) Rel Index Troponin I (0.01-0.034) ng/mL Total Protein (6.3-8.2) g/dL Albumin (3.5-5.0) g/dL Globulin (1.7-4.1) g/dL Albumin/Globulin Ratio (1.0-2.8) Lipase (23-300) U/L Procalcitonin (<0.5) ng/mL Stl C. cayetanensis PCR (Not Detect) Stool Rotavirus (PCR) (Not Detect) Stool Adenovirus (PCR) (Not Detect) Stool Astrovirus (PCR) (Not Detect) Stool Cryptosporidium PCR (Not Detect) Stl E.coli Shiga Tox PCR (Not Detect) St Sh/Enteroin Ecoli PCR (Not Detect) Stool E coli O157 PCR Stl Enterotoxigenic E PCR (Not Detect) Stool EPEC (PCR) (Not Detect) Stl E. histolytica PCR (Not Detect) Stool Giardia Lamblia PCR (Not Detect) Stool Sapovirus (PCR) (Not Detect) Stl P. shigelloides PCR (Not Detect) St Y.enterocolitica PCR (Not Detect) Stool Vibrio (PCR) (Not Detect) Stl Vibrio cholerae PCR (Not Detect) Stl Enteroaggr Ecoli PCR (Not Detect) Stl Norovirus GI/GII PCR (Not Detect) Campylobacter (PCR) (Not Detect) C. difficile Tox (PCR) (Not Detect) SARS-CoV-2 (PCR) (Negative) Salmonella (PCR) (Not Detect) Imaging Data CT scan - head: Radiologist's Impression: CT Scan Report Signed Patient: Carolynn Rubi MR#: [id number] : 1950 Acct:[id number] Age/Sex: 72 / M Date of Service: 09/16/22 Loc: ED Accession Number: [id number] ?? Procedure: CT head/brain wo con Ordering Provider: Dana Pickard D.O. PROCEDURE:? CT HEAD/BRAIN WO CON ? INDICATIONS:? syncope ? TECHNIQUE:? Noncontrast 4.5 mm thick angled axial sections acquired from the foramen magnum to the vertex, with coronal and sagittal reformats.? For radiation dose reduction, the following was used:? automated exposure control, adjustment of mA and/or kV according to patient size.? ? COMPARISON:? [facility], CT, CT HEAD/BRAIN WO CON, 10/19/2020, 12:37. ? FINDINGS:? Image quality:? Excellent.? ? CSF spaces:? Basal cisterns are patent.? No extra-axial fluid collections.? Ventricles are normal in size and shape.? ? Brain:? No midline shift.? No intracranial masses or hemorrhage.? Cobos-white matter interface is normal.? ? Skull and face:? Calvarium and visualized facial bones are intact, without suspicious lesions.? ? Sinuses:? Visualized sinuses and mastoids are clear.? ? IMPRESSION:? No acute disease found.? Source of syncopal episode is not seen.? No trauma from syncope is identified. ? ? Dictated by: Bijan Colvin M.D. on 09/16/2022 at 13:40 ?? ECG Data Interpretation: Normal sinus rhythm rate 82 IA interval 180 QRS [address] changes no T-wave inversion MDM Narrative Medical decision making narrative: Has a diffuse blanchable erythematous rash. It started on the palm then moved to the trunk over period of 2 weeks differential diagnosis includes Coxsackie, Channing spotted fever, syphilis, measles. However patient really is not infectious he is afebrile without leukocytosis. 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 He is given Solu-Medrol Benadryl and Pepcid here in the emergency department he has not had much relief. CT is negative. He ambulated in the ED without any difficulty. 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 He states he has actually started new medication within the last month but he is already on a 2nd bottle of each of those. It included niacin and B12. Discharge Plan Departure Patient Disposition: Home Clinical Impression: Syncope, Rash Instructions: DI for Syncope in Adults (Fainting) Activity Restrictions/Additional Instructions: *You have been diagnosed with rash in syncopal episode *What to do: At this time increase fluid. Please wait for dermatology biopsy *Continue to take medications as directed Take prednisone as prescribed by dermatology *Follow up with your primary care provider in 2-3 days or call [phone] *Return to ER if you should have recurrent syncope worsening rash fever chills pain or any new, worsening or concerning symptoms Prescriptions: No Action atorvastatin 80 mg Tablet 80 mg PO BEDTIME gabapentin 300 mg Capsule 300 mg PO BID Label Comments: 400mg at lunch, 600mg at bedtime aspirin 81 mg Tablet,Chewable 81 mg PO DAILY gabapentin 100 mg Capsule 100 mg PO BID venlafaxine 75 mg Tablet 75 mg PO BID oxycodone-acetaminophen [Percocet] 5-325 mg tablet 1 tab PO Q4H PRN (Reason: pain) Qty: 10 0RF Referrals: Fidel Wilson MD [Primary Care Provider] - Visit Report Forms: Patient Portal/API
[2022-09-16 12:30] LABS: Alanine Aminotransferase 20 IU/L (<50); Albumin 3.9 g/dL (3.5-5.0); Albumin Globulin Ratio 1.3 (1.0-2.8); Alkaline Phosphatase 75 U/L (38-126); Aspartate Aminotransferase 27 IU/L (17-59); BUN Creatinine Ratio 22.5 (6-22); Bilirubin Total 0.7 mg/dL (0.2-1.3); Blood Urea Nitrogen 20 mg/dL (9-20); Calcium 8.9 mg/dL (8.4-10.2); Carbon Dioxide 25 mmol/L (22-32); Chloride 103 mmol/L (98-107); Creatine Kinase 61 U/L (55-170); Estimated Glomerular Filt Rate > 60 mL/min (>60); Glucose 140 mg/dL (80-110); HEMOLYSIS 20 (0-50); Lactate (Lactic Acid) 2.3 mmol/L (0.7-2.1); Lipase 135 U/L (23-300); Magnesium 1.7 mg/dL (1.6-2.3); Potassium 4.2 mmol/L (3.4-5.1); Sodium 138 mmol/L (137-145); Total Protein 6.9 g/dL (6.3-8.2)
[2022-09-16 12:41] LABS: Troponin I < 0.012 ng/mL (0.01-0.034)
[2022-09-16 12:47] LABS: Procalcitonin 0.06 ng/mL (<0.5)
--- NOTE | 2022-09-16 13:08 | PC.NURSE ---
pt had an episode of explosive diarrhea/ incontinent. smells bad. MD aware. gi panel sent. pt has a rash all over body. states no one can figure out his rash.
[2022-09-16 14:10] LABS: Reflexed Lactate in 2 Hours Y
--- NOTE | 2022-09-16 14:13 | PC.NURSE ---
lab walked in room. pt was not responding to him. I went into room, pt was diaphoretic. staring at the ceiling. responded after a few seconds. Dr. Pickard called and at bedside to evaluate patient.
[2022-09-16] MEDS: SODIUM CHLORIDE 0.9% 1,000 ML 1000 ML IV (14:16)
[2022-09-16 14:27] LABS: COVID19 -Nasal RAPID Negative (Negative)
--- NOTE | 2022-09-16 14:30 | PC.NURSE ---
Pt was sleeping, O2 sats dropped to 88% on RA, Rn Jayashree notified, 2L NC applied per RN.
[2022-09-16 14:34] LABS: Campylobacter Not Detected (Not Detect); Clostridium difficile toxin AB Not Detected (Not Detect); Enteroaggregative E.coli Not Detected (Not Detect); Enteropathogenic E.coli Not Detected (Not Detect); Enterotoxigenic E.coli It/st Not Detected (Not Detect); Plesiomonsa shigelloides Not Detected (Not Detect); Salmonella Not Detected (Not Detect); Vibrio Not Detected (Not Detect); Vibrio cholerae Not Detected (Not Detect); Yersinia enterocolitica Not Detected (Not Detect)
[2022-09-16 14:35] LABS: Adenovirus F 40/41 Not Detected (Not Detect); Astrovirus Not Detected (Not Detect); Cryptosporidium Not Detected (Not Detect); Cyclospora cayetanensis Not Detected (Not Detect); Entamoeba histolytica Not Detected (Not Detect); Giardia lamblia Not Detected (Not Detect); Norovirus GI/GII Not Detected (Not Detect); Rotavirus A Not Detected (Not Detect); Sapovirus Not Detected (Not Detect); Shiga-like toxin-prod E.coli Not Detected (Not Detect); Shigella/Enteroinvasive E.coli Not Detected (Not Detect)
[2022-09-16] MEDS: diphenhydrAMINE 50 MG/ML VIAL 25 MG IV (14:41)
[2022-09-16] MEDS: FAMOTIDINE 20 MG/2 ML VIAL IV (14:41)
[2022-09-16] MEDS: methylPREDNISolone 125 MG/2 ML VIAL IV (14:41)
[2022-09-16 15:11] LABS: Lactate 2HR (Lactic Acid Rflx) 1.4 mmol/L (0.7-2.1)
== END 2022-09-16 16:12 | disposition home or self-care (01) ==
PROVIDERS: Emergency Provider Emergency Medicine; Family Provider Internal Medicine; PCP Internal Medicine
DX: R55 Syncope and collapse (principal); R21 Rash and other nonspecific skin eruption; Z20.822 Contact with and (suspected) exposure to COVID-19
CPT/HCPCS: 36415; 70450; 71045; 80053; 82550; 83605; 83690; 83735; 84145; 84484; 85025; 87040; 87507; 87635; 93005; 93010; 96361; 96374; 96375; 99284; C9803; J1200; J2930

== ENCOUNTER → 2022-09-29 13:25 | Outpatient (CLI) | payer OTHER, SELFPAY ==
--- NOTE | 2022-09-29 | DI.RAD.S_ITS ---
PROCEDURE: XR LUMBAR SPINE 2-3V INDICATIONS: worsening of low back pain after a fall TECHNIQUE: 3 views of the lumbar spine were acquired. COMPARISON: None. FINDINGS: Bones: 5 [id number] vertebrae are present. There is moderate levoscoliosis of thoracolumbar spine centered at L1 level. Straightening of normal lumbar lordosis is seen. Degenerative endplate changes, loss of disc height and bilateral facet arthrosis throughout lumbar spine is seen.. Age indeterminate anterior wedge compression deformity involving T12 vertebral body is seen with up to 50 percent loss of T12 vertebral body height anteriorly. No suspicious bony lesions. Soft tissues: Overlying bowel gas pattern is normal. No suspicious soft tissue calcifications. IMPRESSION: Age indeterminate anterior wedge compression deformity at T12 level with up to for 50 percent loss of T12 vertebral body height anteriorly. Moderate levoscoliosis of lumbar spine centered at L1 level. Degenerative disc disease throughout lower thoracic and lumbar spine. No acute compression fracture is seen in lumbar spine. Dictated by: Rehan Barney M.D. on 09/29/2022 at 16:15 Approved by: Rehan Barney M.D. on 09/29/2022 at 16:17
== END ==
PROVIDERS: Family Provider Internal Medicine; PCP Internal Medicine; Referring Provider Internal Medicine; Visit Provider Internal Medicine
DX: M51.34 Other intervertebral disc degeneration, thoracic region (principal); M51.36 Other intervertebral disc degeneration, lumbar region; M43.8X4 Other specified deforming dorsopathies, thoracic region; M41.9 Scoliosis, unspecified; M54.50 Low back pain, unspecified
CPT/HCPCS: 72100

== ENCOUNTER 2023-12-04 15:12 | Emergency (ER) | payer OTHER, SELFPAY ==
[2023-12-04] VITALS (12 sets, daily range): BP systolic 158–227; BP diastolic 79–106; PULSE 51–60; RESP 13–18; TEMP 36.1; O2SAT 98–100; BMI 28.5
--- NOTE | 2023-12-04 15:21 | DI.RAD.S_ITS ---
PROCEDURE: XR CHEST 1V INDICATIONS: chest pain TECHNIQUE: One view of the chest was acquired. COMPARISON: [facility], CR, XR CHEST 1 VIEW, 08/24/2023, 0:15. [facility], CR, XR CHEST 1V, 09/16/2022, 12:07. [facility], CR, XR CHEST 1V, 10/19/2020, 12:45. FINDINGS: Surgical changes and devices: None. Lungs and pleura: Lungs are clear. No pleural effusions or pneumothorax. Mediastinum: Mediastinal contours appear normal. Heart size is normal. Bones and chest wall: No suspicious bony lesions. Overlying soft tissues appear unremarkable. IMPRESSION: No acute cardiopulmonary abnormality is seen. Dictated by: Zohaib Khan M.D. on 12/04/2023 at 16:22 Approved by: Zohaib Khan M.D. on 12/04/2023 at 16:22
[2023-12-04 15:42] LABS: Add Manual Diff / Slide Review NO; Basophils Absolute Auto 0 /uL (0-100); Basophils Percent Auto 0.7 % (0-2); Eosinophils Absolute Auto 100 /uL (0-450); Eosinophils Percent Auto 2.7 % (2-4); Hematocrit 44.3 % (41-53); Hemoglobin 14.7 g/dL (13.5-17.5); Lymphocytes Absolute Auto 1200 /uL (1100-4500); Lymphocytes Percent Auto 21.1 % (25-40); Mean Corpuscular HGB Conc 33.1 % (30-36); Mean Corpuscular Hemoglobin 30.1 PG (26-34); Mean Corpuscular Volume 91.1 fL (80-100); Monocytes Absolute Auto 400 /uL (0-900); Monocytes Percent Auto 7.7 % (3-14); Neutrophils Absolute Auto 3700 /uL (1500-7000); Neutrophils Percent Auto 67.8 % (50-75); Platelet Count 206 X10^3/uL (150-400); Red Blood Cell Count 4.87 X10^6/uL (4.5-5.9); Red Cell Distribution Width 14.5 % (11.6-14.8); White Blood Cell Count 5.5 X10^3/uL (4.5-11.0)
[2023-12-04 15:47] LABS: HEMOLYSIS < 15 (0-50)
--- NOTE | 2023-12-04 15:47 | ED.CHESTPAIN ---
HPI - Chest Pain General Chief Complaint: Chest Pain Stated Complaint: chest pain/high bp Time Seen by Provider: 12/04/23 15:47 Source: patient and other Mode of arrival: Wheelchair Limitations: no limitations History of Present Illness HPI narrative: This is a 73-year-old man with a history of coronary artery disease cardiac stents and a VFib arrest. He is here today because he has been having exertional chest pain for about the last week. He was referred by cardiac rehab. Reportedly had substernal chest pain while exercising. He also had shortness of breath. He continued to exercise for 20 minutes during which time he had chest pain and then his chest pain resolved fairly soon after he stopped exercising. He is now pain-free. He is followed at [facility] by Dr. Novak. Does not have an AICD implanted Related Data Home Medications Medication Instructions Recorded Confirmed aspirin 81 mg chewable tablet 81 mg PO DAILY 10/11/18 10/03/19 atorvastatin 80 mg tablet 80 mg PO BEDTIME 10/11/18 10/03/19 gabapentin 100 mg capsule 100 mg PO BID 10/11/18 10/03/19 gabapentin 300 mg capsule 300 mg PO BID 10/11/18 10/03/19 venlafaxine 75 mg tablet 75 mg PO BID 10/11/18 10/03/19 Previous Rx's Medication Instructions Recorded oxycodone-acetaminophen 5 mg-325 1 tab PO Q4H PRN pain #10 tabs 10/03/19 mg tablet (Percocet) Allergies Allergy/AdvReac Type Severity Reaction Status Date / Time Penicillins [PENICILLINS] Allergy Severe I WILL Verified 10/03/19 14:42 , childhood rn hydrocodone AdvReac Severe pass out Verified 10/03/19 14:42 Patient History Medical History Anxiety disorder Benign heart murmur Chronic back pain Coronary artery disease Depression History of coronary angiogram Hyperlipidemia Hypertension Myocardial infarction (04/20/17) Osteoarthritis Peripheral neuropathy Surgical History History of arthroscopy History of arthroscopy of knee History of colonoscopy Social History household members: none Smoking Status: Never smoker alcohol intake: current Smoking Status: Never smoker alcohol intake frequency: a few times a week Alcohol type: beer Substance Use Type: does not use Exam Initial Vital Signs Initial Vital Signs: Vital Signs Temperature 97 F L 12/04/23 15:14 Pulse Rate 56 L 12/04/23 15:14 Respiratory Rate 18 12/04/23 15:14 Blood Pressure 195/89 H 12/04/23 15:14 Pulse Oximetry 99 12/04/23 15:14 Oxygen Delivery Method Room Air 12/04/23 15:14 Const General: No acute distress HENDC Head: normocephalic and atraumatic Resp Effort & Inspection: normal respiratory effort Auscultation: clear to auscultation bilaterally Cardio Other: Regular rhythm and rate with a straight 6 systolic murmur Skin General: dry skin and warm Neuro General: patient alert and patient oriented x3 Course Orders Ordered: ED Orders 12/04/23 15:21 XR chest 1V Stat EKG-12 Lead Stat 12/04/23 15:30 Complete Blood Count AUTO DIFF Stat Comprehensive Metabolic Panel Stat Lipase Stat Magnesium Stat PTT Partial Thromboplastin Osy Stat Prothrombin Time INR Stat Troponin & CK Cardiac Panel Stat 12/04/23 17:45 Troponin I Stat Consultations Consultation #1: D/W cardiology, Dr Kaur, admit and stress Vital Signs Vital signs: Vital Signs - 8 hr 12/04/23 15:14 12/04/23 15:27 12/04/23 15:27 Temperature 97 F L Pulse Rate 56 L 57 L Respiratory Rate 18 Blood Pressure 195/89 H 212/96 H Pulse Oximetry 99 98 Oxygen Delivery Method Room Air 12/04/23 15:30 12/04/23 15:30 12/04/23 15:45 Temperature Pulse Rate 56 L Respiratory Rate Blood Pressure 198/82 H 184/86 H Pulse Oximetry 98 Oxygen Delivery Method 12/04/23 15:45 12/04/23 16:00 12/04/23 16:00 Temperature Pulse Rate 56 L 55 L Respiratory Rate 17 16 Blood Pressure 179/88 H Pulse Oximetry 98 98 Oxygen Delivery Method 12/04/23 16:15 12/04/23 16:15 12/04/23 16:30 Temperature Pulse Rate 52 L Respiratory Rate 13 Blood Pressure 158/79 H 159/86 H Pulse Oximetry 98 Oxygen Delivery Method 12/04/23 16:30 12/04/23 16:45 12/04/23 16:45 Temperature Pulse Rate 52 L 51 L Respiratory Rate 15 15 Blood Pressure 184/84 H Pulse Oximetry 98 98 Oxygen Delivery Method 12/04/23 17:00 12/04/23 17:00 12/04/23 17:15 Temperature Pulse Rate 51 L 55 L Respiratory Rate 13 13 Blood Pressure 181/88 H Pulse Oximetry 99 99 Oxygen Delivery Method 12/04/23 17:15 12/04/23 17:30 12/04/23 17:31 Temperature Pulse Rate 58 L Respiratory Rate 14 Blood Pressure 197/95 H 227/106 H Pulse Oximetry 100 Oxygen Delivery Method 12/04/23 17:31 Temperature Pulse Rate 60 Respiratory Rate 15 Blood Pressure Pulse Oximetry 98 Oxygen Delivery Method MDM - Chest Pain Lab Data Lab results narrative: CBC with diff and CMP are unremarkable, 1st troponin is normal. Repeat troponin is rising. See addendum below 12/04/23 15:30 12/04/23 15:30 Labs: Lab Results 12/04/23 12/04/23 Range/Units 15:30 17:45 WBC 5.5 (4.5-11.0) X10^3/uL RBC 4.87 (4.5-5.9) X10^6/uL Hgb 14.7 (13.5-17.5) g/dL Hct 44.3 (41-53) % MCV 91.1 (80-100) fL MCH 30.1 (26-34) PG MCHC 33.1 (30-36) % RDW 14.5 (11.6-14.8) % Plt Count 206 (150-400) X10^3/uL Neut % (Auto) 67.8 (50-75) % Lymph % (Auto) 21.1 L (25-40) % [place] % (Auto) 7.7 (3-14) % Eos % (Auto) 2.7 (2-4) % Baso % (Auto) 0.7 (0-2) % Neut # (Auto) 3700 (3893-7689) /uL Lymph # (Auto) 1200 (4557-9322) /uL [place] # (Auto) 400 (0-900) /uL Eos # (Auto) 100 (0-450) /uL Baso # (Auto) 0 (0-100) /uL PT 17.1 H (9.4-12.5) SECONDS INR 1.5 H (0.9-1.3) APTT 35 (25.1-36.5) SECONDS Sodium 140 (137-145) mmol/L Potassium 4.2 (3.4-5.1) mmol/L Chloride 105 (98-107) mmol/L Carbon Dioxide 26 (22-32) mmol/L BUN 15 (9-20) mg/dL Creatinine 1.02 (0.66-1.25) mg/dL Estimated GFR > 60 (>60) mL/min BUN/Creatinine Ratio 14.7 (6-22) Glucose 120 H (80-110) mg/dL Calcium 9.9 (8.4-10.2) mg/dL Magnesium 2.0 (1.6-2.3) mg/dL Total Bilirubin 0.6 (0.2-1.3) mg/dL AST 19 (17-59) IU/L ALT 14 (<50) IU/L Alkaline Phosphatase 59 (38-126) U/L Total Creatine Kinase 65 (55-170) U/L Troponin I < 0.012 0.031 (0.01-0.034) ng/mL Total Protein 7.8 (6.3-8.2) g/dL Albumin 4.5 (3.5-5.0) g/dL Globulin 3.3 (1.7-4.1) g/dL Albumin/Globulin Ratio 1.4 (1.0-2.8) Lipase 138 (23-300) U/L Imaging Data Chest x-ray: My Impression: Independent review of chest x-ray no acute disease Radiologist's Impression: Radiology reports no acute cardiopulmonary disease ECG Data Interpretation: ECG shows normal sinus rhythm at [address] segment changes Q-waves in lead 3 MDM Narrative Medical decision making narrative: 73-year-old man with known coronary artery disease presenting with an episode of chest pain that occurred during cardiac rehab. He has actually had a couple of episodes of exertional chest pain recently. Patient decided leave against medical advice, he was capable of understanding and making an informed decision. He he did understand that the recommendation from Cardiology was for admission and further testing. Second troponin was pending at the time of his discharge against medical advice. See below At 18:30, I called the patient on his cell phone and advised him that his troponin was rising. Recommended that he go to [facility] to the emergency department. I called the [facility] Emergency Department and spoke with Dr. Roca, providers and with the pertinent details of the case including known coronary disease, history of VF arrest rising troponin after exertional chest pain. Discharge Plan Departure Patient Disposition: Left Against Medical Advice Clinical Impression: Chest pain Activity Restrictions/Additional Instructions: We are discharging you against medical advice. I am concerned that the chest pain you are having earlier today could be a sign that you have inadequate blood circulation to your heart muscle. If you have more chest pain, call 911 and had the ambulance take you [facility]. I will call your telephone if the repeat blood test we did for damage to the heart muscle is abnormal. Follow up as soon as you can with your career technology teacher for further testing. You are welcome to return to the emergency department at any point should you need medical assistance or have chest pain. As above, it would likely be better for you to go to [facility] as they have the cardiac catheterization lab. Prescriptions: No Action atorvastatin 80 mg Tablet 80 mg PO BEDTIME gabapentin 300 mg Capsule 300 mg PO BID Patient Comments: 400mg at lunch, 600mg at bedtime aspirin 81 mg Tablet,Chewable 81 mg PO DAILY gabapentin 100 mg Capsule 100 mg PO BID venlafaxine 75 mg Tablet 75 mg PO BID oxycodone-acetaminophen [Percocet] 5-325 mg tablet 1 tab PO Q4H PRN (Reason: pain) Qty: 10 0RF Referrals: Jocelyn Lowery MD [Primary Care Provider] - Stand Alone Forms: Patient Portal/API, Against Medical Advice
[2023-12-04 15:48] LABS: INR 1.5 (0.9-1.3); Prothrombin Time 17.1 SECONDS (9.4-12.5)
[2023-12-04 15:50] LABS: PTT Partial Thromboplastin Tim 35 SECONDS (25.1-36.5)
[2023-12-04 15:54] LABS: Alanine Aminotransferase 14 IU/L (<50); Albumin 4.5 g/dL (3.5-5.0); Albumin Globulin Ratio 1.4 (1.0-2.8); Alkaline Phosphatase 59 U/L (38-126); Aspartate Aminotransferase 19 IU/L (17-59); BUN Creatinine Ratio 14.7 (6-22); Bilirubin Total 0.6 mg/dL (0.2-1.3); Blood Urea Nitrogen 15 mg/dL (9-20); Calcium 9.9 mg/dL (8.4-10.2); Carbon Dioxide 26 mmol/L (22-32); Chloride 105 mmol/L (98-107); Creatine Kinase 65 U/L (55-170); Estimated Glomerular Filt Rate > 60 mL/min (>60); Globulin 3.3 g/dL (1.7-4.1); Glucose 120 mg/dL (80-110); Lipase 138 U/L (23-300); Potassium 4.2 mmol/L (3.4-5.1); Sodium 140 mmol/L (137-145); Total Protein 7.8 g/dL (6.3-8.2)
[2023-12-04 16:07] LABS: Troponin I < 0.012 ng/mL (0.01-0.034)
[2023-12-04 18:14] LABS: Troponin I 0.031 ng/mL (0.01-0.034)
== END 2023-12-04 17:51 | disposition left against medical advice (07) ==
PROVIDERS: Emergency Provider Emergency Medicine; PCP Internal Medicine
DX: R07.9 Chest pain, unspecified (principal); Z79.899 Other long term (current) drug therapy
CPT/HCPCS: 36415; 71045; 80053; 82550; 83690; 83735; 84484; 85025; 85610; 85730; 93005; 99283; 99284

== ENCOUNTER 2024-01-29 14:15 | Outpatient (RCR) | payer OTHER, SELFPAY ==
--- OUTSIDE RECORDS SUMMARY | 2023-10-27 14:25 | XMS_ITS ---
Author Name Unknown Organization [facility] Address [address] [place] [address] Care Team Providers Care Distributor Sales Consultant Name Role Phone Steve Fidel Primary Care Provider [phone] Reason for Referral * Hospital - Outpatient (Routine) - Authorized Specialty Diagnoses / Procedures Referred By Dario valladares Referred To Contact Diagnoses Coronary artery disease involving lower brule heart Presence of coronary angioplasty implant and graft Henry Eden MD [address] [place] [address] [address] [place] [address] [address] Referral ID Status Reason Start Date Expiration Date V isits Requested Visits Authorized [id number] Authorized 08/24/2023 08/18/2024 36 36 Reason for Visit * Reason Comments Chest Pain * Auth/Cert (Routine) Specialty Diagnoses / Procedures Referred By Dario valladares Referred To Contact Diagnoses Cardiac arrest ([facility]) Cardiac arrhythmia, unspecified cardiac arrhythmia type Procedures INPATIENT Referral ID Status Reason Start Date Expiration Date Visits Re quested Visits Authorized [id number] 1 1 Encounter Details Date Type Department Care Team Description 08/24/2023 12:24 AM PDT - 08/29/2023 7:06 PM PDT Hospital Encounter [facility] [address] [place] [address] Cody Miller MD [address] [place] [address] Henry Eden MD [address] [place] [address] Morelia Oreilly MD [address] [place], [place] [id number] Alejandro Stuart MD [address] [place] [place], [place] [id number] Kisha Mccoy MD [address] [place], [place] [id number] Cardiac arrest (CMS-HCC) (Primary Dx); Cardiac arrhythmia, unspecified cardiac arrhythmia type Discharge Disposition: Home Health Service Allergies Active Allergy Reactions Criticality Noted Date Comments Doxycycline 11/14/2013 Hydrocodone Other (see comments) Low 05/11/2021 Penicillins 11/14/2013 Qyuenue-Sdi-Bqx Reductase Inhibitors Other (see comments) Low 05/11/2021 documented as of this encounter (statuses as of 09/13/2023) Medications Medication Sig Dispensed Refills Start Date End Date Status gabapentin (NEURONTIN) 100 mg capsule Take 2 capsules (200 mg total) by mouth 2 (two) times a day 0 03/29/2018 Active nitroglycerin (NITROSTAT) 0.[address] 1 tab under tongue every 5 min (as needed for chest pain), for total of 3 doses. If 3rd dose needed, call 911. 25 tablet 1 05/09/2018 Active acetaminophen (TYLENOL) 650 mg 8 hr tablet Take by mouth 2 (two) times a day 0 Active lisinopriL (PRINIVIL) 5 mg tablet TAKE 1 TABLET(5 MG) BY MOUTH DAILY 90 tablet 1 03/28/2023 Active evolocumab (Repatha SureClick) 140 mg/mL pen injector INJECT 140MG UNDER THE SKIN EVERY 14 DAYS 0 06/08/2023 Active aspirin 81 mg chewable tablet Chew and swallow 1 tablet by mouth daily. Take for 30 days then stop per cariology 90 tablet 0 08/29/2023 Active metoprolol succinate XL (TOPROL-XL) 25 mg 24 hr tablet Take 1 tablet (25 mg total) by mouth daily Resume metoprolol per cardiology 30 tablet 1 08/29/2023 Active apixaban (ELIQUIS) 5 mg tablet Take 1 tablet (5 mg total) by mouth 2 (two) times a day 60 tablet 2 08/29/2023 Active clopidogreL (PLAVIX) 75 mg tablet Take 1 tablet (75 mg total) by mouth daily 90 tablet 1 08/30/2023 08/29/2024 Active lidocaine (LIDODERM) 4 % patch Apply 1 patch topically daily to right shoulder 30 patch 1 08/30/2023 Active pantoprazole (PROTONIX) 20 mg EC tablet Take 2 tablets (40 mg total) by mouth daily 90 tablet 1 08/29/2023 08/28/2024 Active aspirin 81 mg chewable tablet Chew and swallow 1 tablet by mouth every day for heart. No further refills until seen by cardiology, call for appointment. 90 tablet 0 07/20/2020 08/29/2023 Discontinued (Reorder) metoprolol succinate XL (TOPROL-XL) 25 mg 24 hr tablet TAKE 1 TABLET(25 MG) BY MOUTH DAILY 90 tablet 3 10/05/2022 08/29/2023 Discontinued (Reorder) documented as of this encounter (statuses as of 09/13/2023) Active Problems Problem Noted Date Diagnosed Date Nonrheumatic aortic valve stenosis 05/18/2023 Overview: Echocardiogram 2019 Vitamin B12 deficiency 02/15/2023 Hypertension 07/20/2021 Coronary artery disease involving lower brule heart 0 07/20/2021 Tendinopathy of right rotator cuff 06/21/2021 Biceps tendinopathy of right upper extremity Arthritis of right acromioclavicular joint 06/21 Statin intolerance 05/11/2021 Hemorrhoids 05/10/2021 Idiopathic osteoarthritis 05/10/2021 Overview: Including OA at [facility] and scapho-trapezium Major depressive disorder wi th single episode, in full remission 05/10/2021 Mixed hyperlipidemia 05/10/2021 Cubital tunnel syndrome on left 01/08/2021 Right hand pain 11/06/2020 Arthritis of carpometacarpal (CMC) joint of righ t thumb 11/06/2020 Tendinopathy of left rotator cuff 11/06/2020 Medial epicondylitis of elbow, left 03/28/2018 Arthritis of carpometacarpal (CMC) joints of bot h thumbs 02/14/2018 Arthritis of xeqaok-bgsixcckl-xqtjjpuxk joint Depression 11/21/2013 Low back pain 11/21/2013 Overview: Since 2000. Has been surgically evaluated but never had sx. MRI showed l3-4 disc herniation. CONSTANTIN x2 with no benefit. Earnest Parks. Ortho. Has been to [facility]. documented as of this encounter (statuses as of 09/13/2023) Immunizations Name Administration Dates Next Due DTaP, Unspecified 03/18/2008 FLU 36+Mos Multi-dose (Flulaval,Fluzone) 014 FLU High Dose 65+ (Fluzone) 12/11/2017 Influenza Quadrivalent Recom binant Preservative Free 09/28/2022,11/15/2021 Influenza, Quadrivalent 09/28/2022,11/15/2021, Influenza, Seasonal, Injectable 12/11/2017 Igraqk-SRXC-CpW-2 Trs-sucr Vaccine 04/05/2022 Pneumococcal Conjugate PCV13 (Vnhmncg09) 018 Pneumococcal Polysaccharide PPV23 (Jtymrpprt09) 09/16/2019 Recombinant Zoster (Shingrix) 06/28/2023, 023 TD Preservative Free (Generic) 03/18/2008 TD Preservative Free (Tenivac) 03/18/2008 Tdap (Boostrix,Adacel) 07/23/2018 VFC FLU Multidose 36+Mos (Flulaval,Fluzone) 11/27 documented as of this encounter Social History Tobacco Use Types Packs/Day Years Used Date Smoking Tobacco: Never Smokeless Tobacco: Never Comments:a few cigars in col lege Alcohol Use Standard Drinks/Week Comments Yes 0 (1 standard drink = 0.6 oz pure alcohol) a couple beers a day and an occasional vodka/tonic AUDIT-C Answer Date Recorded Q1: How often do you have a drink containing alc ohol? 2-3 times a week 08/24/2023 Q2: How many drinks containi ng alcohol do you have on a typical day when you are drinking? 3 or 4 08/24/2023 Q3: How often do you have si x or more drinks on one occasion? Weekly 08/24/2023 Sex and Gender Information Value Date Recorded Sex Assigned at Male 08/24/2023 4:24 AM PDT Gender Identity Male 08/24/2023 4:24 AM PDT Sexual Orientation Straight 08/24/2023 4: 24 AM PDT Job Start Date Occupation Industry Not on file Not on file Not on file documented as of this encounter Last Filed Vital Signs Vital Sign Reading Time Taken Comments Blood Pressure 144/86 08/29/2023 12:24 PM PDT Pulse 72 08/29/2023 12:24 PM PDT Temperature 36.8 ??C (98.2 ??F) 08/29/2023 8:42 AM PD T Respiratory Rate 17 08/29/2023 5:00 AM PDT Oxygen Saturation 95% 08/29/2023 12:24 PM PDT Inhaled Oxygen Concentration - - Weight 95.3 kg (210 lb) 08/24/2023 12:34 AM PDT Height 182.9 cm (6') 08/24/2023 12:34 AM PDT Body Mass Index 28.48 08/24/2023 12:34 AM PDT documented in this encounter Discharge Summaries * Kisha Mccoy MD - 08/29/2023 4:20 PM PDT [facility]: DISCHARGE SUMMARY Patient Name: Nathanael Escobar Date of : 1950 Age: 73 y.o. Code Status: Full Code Primary Care Physician: Fidel Wilson Admitting Provider: Morelia Oreilly MD Attending Provider: Kisha Mccoy MD Admit Date: 08/24/2023 Date of Service: 08/29/2023 Hospital Day: 5 Discharge destination: Home with home health Follow up plan: Follow up with PCP (Fidel Wilson) within 6 days. Appointment already made Follow up with cardiology Dr. Eden in 1-2 weeks PATIENT DISCHARGE INSTRUCTIONS- Per cardiology - plan to take aspirin, clopidogrel (aka Plavix), and apixaban (aka Eliquis). Aspirin and Plavix is for your stent. Eliquis is for your new diagnosis of atrial fibrillation. Take aspirin for 30 months then stop, continue to take Plavix and Eliquis You have been given a referral for cardiac rehab Pending Tests and other issues requiring follow up: Issues needing FU : Medication review Symptoms review Pending tests: None Brief Reason for Admission From the H&P performed by Morelia Oreilly MD on 08/24/2023: Nathanael Escobar is a 73 y.o. male with a past medical history notable for hypertension, depression, hyperlipidemia, aortic valve stenosis and CAD s/p angioplasty to left circumflex who presented to [facility] emergency department for the evaluation of V-fib arrest s/p CPR. Patient reports he was sleeping when he all of a sudden woke up from his sleep around 11 PM with midsternal chest pain that was constant and felt like a dull, throbbing ache 6-7 out of 10 in severity, it does not radiate. Patient had associated palpitations and irregular heartbeat. Nothing made his symptoms better or worse, denied any shortness of breath, headache, abdominal pain, nausea, vomiting, trauma.Patient reports that he had a previous episode a few weeks ago that lasted about 20 minutes and it presented in the same way where he was sleeping and he woke up all of a sudden with chest pain, during that time he just try to relax and the pain went away on its own without any intervention. Patient does mention that he has been experiencing worsening exercise tolerance and shortness of breath inthe last month. Patient decided to call 911, he took 324 mg of aspirin and when EMS arrived his EKGshowed that he was in A-fib RVR and signs of suspected anterior LA. The patient went into V-fib arrest, he had CPR for 5 minutes and was shocked twice before going back into A-fib with RVR, in route the patient received diltiazem 10 mg. The patient does not smoke and says that he drinks beer, 2-4 dr inks 3 times a week, his last drink was yesterday. Consultants : cardiology Hospital Course Summary Statement: 73 yo M with h/o STEMI in 2017 was admitted for V-fib arrest s/p CPR and shocks x 2 and urgently taken to laboratory secretary for STEMI, secondary to 90% lesion to RCA s/p 2 drug eluting stents. New diagnosis of Afib seen by EMS prior to arrest and after ROSC. Aspirin, Plavix, and apixaban started here. Cardiology signed off 08/26 with plan for close outpatient follow up and cardiac rehab. Acute post-CPR on chronic pain and physical deconditioning were addressed with improvement. PT/OT recommended home health so this was arranged with oncology social work assistance. 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 Wall hypokinesis of basal hypokinesis. Moderate aortic stenosis - Left heart cath 08/24: left main 20% ostial; LAD 30 to 40% mid; LCx previously placed stent patent, 30 to 40% proximal; RCA ostial to proximal 90% treated with a ANGEL. - Loaded with ticagrelor. Per cardiology, continue aspirin 81 mg daily and clopidogrel 75 mg daily for 30 days then stop the aspirin due to need for full anticoagulation - Metoprolol succinate 12.5mg daily. On subcutaneous Repatha, allergic to statin. - Follow up with cardiology Dr. Eden in 1-2 weeks - Cardiac rehab referral ordered Paroxsymal atrial fibrillation - Prior to arrest, noted to be in atrial fibrillation with EMS. Also in Afib after ROSC - Elevated TSH 4.98 and normal FT4 - Metoprolol succinate 12.5 mg daily - Eliquis 5 mg BID Moderate aortic stenosis - Noted on TTE on 08/24 - Monitor volume status. Appeared euvolemic Prolonged QTc - QTC 504 - Avoid QTC prolonging meds Physical deconditioning - PT/OT Chronic medical problems, POA: HTN: Continue lisinopril 5 mg daily and metoprolol HLD: History of statin intolerance. On subcutaneous Repatha Depression Body mass index is 28.48 kg/m??. Covid Vaccinated: yes No results found for: ROSITA RIVERA Admission Diagnosis(es) Cardiac arrest ([facility]) [I46.9] Cardiac arrhythmia, unspecified cardiac arrhythmia type [I49.9] Present on Admission: None Discharge Diagnosis(es) Active Problems: No Active Problems: There are no active problems currently on the Problem List. Please update the Problem List and refresh. Hospital Operative Procedures * No surgery found * Disposition Nathanael Escobar was discharged to Home with home health in good condition. Discharge Medications Medication List START taking these medications apixaban 5 mg tablet Commonly known as: ELIQUIS Take 1 tablet (5 mg total) by mouth 2 (two) times a day clopidogreL 75 mg tablet Commonly known as: PLAVIX Take 1 tablet (75 mg total) by mouth daily Start taking on: August 30, 2023 lidocaine 4 % patch Commonly known as: LIDODERM Apply 1 patch topically daily to right shoulder Start taking on: August 30, 2023 pantoprazole 20 mg EC tablet Commonly known as: PROTONIX Take 2 tablets (40 mg total) by mouth daily CHANGE how you take these medications aspirin 81 mg chewable tablet Chew and swallow 1 tablet by mouth daily. Take for 30 days then stop per cariology What changed: additional instructions metoprolol succinate XL 25 mg 24 hr tablet Commonly known as: TOPROL-XL Take 1 tablet (25 mg total) by mouth daily Resume metoprolol per cardiology What changed: additional instructions CONTINUE taking these medications acetaminophen 650 mg 8 hr tablet Commonly known as: TYLENOL gabapentin 100 mg capsule Commonly known as: NEURONTIN lisinopriL 5 mg tablet Commonly known as: PRINIVIL TAKE 1 TABLET(5 MG) BY MOUTH DAILY nitroglycerin 0.4 mg SL tablet Commonly known as: NITROSTAT Place 1 tab under tongue every 5 min (as needed for chest pain), for total of 3 doses. If 3rd dose needed, call 911. Edith SureEugeneick 140 mg/mL pen injector Generic drug: evolocumab Notes to patient: As ordered. Where to Get Your Medications These medications were sent to [id number] - [place], [place] [address] [place] [address] apixaban 5 mg tablet aspirin 81 mg chewable tablet clopidogreL 75 mg tablet lidocaine 4 % patch metoprolol succinate XL 25 mg 24 hr tablet pantoprazole 20 mg EC tablet OBJECTIVE First recorded vitals: Temp: 36.4 ??C (97.5 ??F) - BP: 154/82 - Heart Rate: (!) 139 - Resp: 15 - SpO2: 95 % O2 Flow Rate (L/min): 4 L/min Most recent vitals: Temp: 36.8 ??C (98.2 ??F) - BP: (!) 144/86 - Heart Rate: 72 - Resp: 17 - SpO2: 95 % O2 Flow Rate (L/min): 0.5 L/min Physical Exam General: NAD, awake, alert, and interactive and no acute distress Head: normocephalic, Eyes: symmetric pupils, EOMI, anicteric sclera Lungs:Clear to auscultation bilaterally. No rales, wheezing, or stridor. Normal rate and effort. Heart: regular rate and rhythm, S1, S2 normal, +Murmur, click, rub or gallop Abdomen: abdomen is soft without significant tenderness, masses, organomegaly or guarding Legs: normal strength, tone, and muscle mass. No edema Arms: Normal and without swelling Speech: normal rate, tone and rhythm and coherent speech Affect: Flat Skin: Normal without rash. No jaundice I have seen and examined Nathanael Escobar on 08/29/2023. LABS & DIAGNOSTICS Hematology Results from last 7 days Lab Units 08/26/23 1035 08/25/23 0445 08/24/23 0046 WBC AUTO x10e3/uL 7.4 9.0 7.3 HEMOGLOBIN g/dL 12.7* 12.3* 14.9 HEMATOCRIT % 38.5* 38.7* 45.9 MCV fL 91 96 93 PLATELETS AUTO x10e3/uL 171 157 193 Chemistry Results from last 7 days Lab Units 08/26/23 1035 08/25/23 0445 08/24/23 0620 08/24/23 0046 SODIUM mmol/L 139 140 141 143 POTASSIUM mmol/L 3.8 4.2 4.2 3.6 CHLORIDE mmol/L 105 110* 110* 108* CO2 mmol/L 28 25 22 22 BUN mg/dL 11.9 20.7 15.1 12.7 CREATININE mg/dL 0.78 0.79 0.87 1.00 GLUCOSE mg/dL 111* 114* 151* 123* CALCIUM, SERUM mg/dL 8.8 8.5 8.4* 8.8 MAGNESIUM mg/dL 1.9 -- 1.7 1.9 AST U/L -- -- -- 44 ALT U/L -- -- -- 32 BILIRUBIN TOTAL mg/dL -- -- -- 0.4 ALBUMIN g/dL -- -- -- 4.1 TOTAL PROTEIN g/dL -- -- -- 6.9 Estimated Creatinine Clearance: 80 mL/min (by C-G formula based on SCr of 0.78 mg/dL). IMAGING ECHOCARDIOGRAM COMPLETE Result Date: 08/24/2023 Narrative: [facility] + + Hospital +---------+ : : [address] : : : : [place], : : : : [place] [address] : : : : Phone: [phone] Echocardiogram Report + + :Name: NATHANAEL ESCOBAR Study Date: 08/24/2023 Height: 71.5 in: :[facility] ReadingLocation: Weight: 210 lb : : Gender: Male BSA: 2.2 m2 : :: 1950 Age: 73 yrs BP: 96/58 mmHg : :Reason For Study: STEMI : :Ordering Physician: HENRY EDEN Performed By: Harinder Jones : :Referring: WILL RODRIGUEZ : + + Interpretation Summary The left ventricle is normal in size. The ejection fraction is estimated to be 60-65%. There is basal inferior wall hypokinesis. There is basal posterolateral wall hypokinesis. The right ventricle is at the upper limits of normal in size. The right ventricular systolic function is normal. Both atria are normal in size. There is moderate aortic stenosis. The peak aortic velocity is 3.58 m/sec. The calculated aortic valve area is 1.3 cm2. There is no other significant valvular heart disease. The ascending aorta is mildly enlarged. Procedure: Atwo-dimensional transthoracic echocardiogram with color flow and Doppler was performed. The study quality was technically adequate. Comparison is made with the echocardiogram of 12/20/19. The subcostal views were not obtained due to lack of an acoustic window. The patient was in normal sinus rhythm during the exam. Left Ventricle: The left ventricle is normal in size. There is normal left ventricular wall thickness. The ejection fraction is estimated to be 60-65%. There is basal inferior wall hypokinesis. There is basal posterolateral wall hypokinesis. Diastolic parameters suggest a relaxationabnormality of the left ventricle, consistent with probable normal filling pressures. Right Ventricle: The right ventricle is at the upper limits of normal in size. The right ventricular systolic function is normal. Atria: Both atria are normal in size. There is no Doppler evidence for an atrial septal defect. Mitral Valve: The mitral valve is normal in structure and function. There is no mitral regurgitation noted. Aortic Valve: The aortic valve is mildly calcified. There is moderate aortic stenosis. The peak aortic velocity is 3.58 m/sec. The aortic valve mean gradient is 28.0 mmHg. The calculated aortic valve area is 1.3 cm2. There is trace aortic regurgitation. Tricuspid Valve: The tricu spid valve is normal in structure and function. No tricuspid regurgitation. Pulmonary artery pressures cannot be estimated because of the lack of a measurable TR jet velocity. Pulmonic Valve: The pulmonic valve is not well visualized. There is trace pulmonic regurgitation. There is no other significant valvular heart disease. Great Vessels: The aortic root is normal size. The ascending aorta is mildly enlarged. The pulmonary artery is normal size. The inferior vena cava was not visualized. Pericardium/ Pleura There is no pericardial effusion. There is no pleural effusion. MMode/2D Measurements & Calculations LVIDd: 5.4 cm LVOT diam: 2.2 cm LVIDs: 3.8 cm Ao root diam: 3.4 cm IVSd: 1.1 cmasc Aorta Diam: 3.6 cm LVPWd: 0.94 cm Ao Arch Diam (Prox Trans): 2.8 cm LV boss. diameter/BSA (cm/m^2): 2.5 LV sys. diameter/BSA (cm/m^2): 1.8 FS: 28.6 % EPSS: 0.70 cm LA A2 area: 20.2 cm2 RA long axis: 4.6 cm LA A4 area: 20.2 cm2 RA area: 16.9 cm2 LA length (vol): 5.6 cm RA vol: 52.7 ml LA vol: 61.4 ml RA : 24.3 ml/m2 LA vol index: 28.3 ml/m2 RVD1 (basal): 4.1 cm RVD2 (mid): 3.5 cm TAPSE: 1.9 cm Doppler Measurements & Calculations Ao V2 max: 358.2 cm/sec LVOT Max Hossein: 125.7 cm/sec Ao V2 mean: 249.8 cm/sec LV V1 max P.3 mmHgAo V2 VTI: 69.4 cm LV V1 VTI: 22.5 cm Ao max P.3 mmHg Ao mean P.0 mmHg RACHAEL(I,D): 1.2 cm2 MV E max hossein: 55.8 cm/sec RACHAEL(V,D): 1.3 cm2 MV A max hossein: 85.8 cm/sec RACHAEL indexed to BSA (cm^2/m^2): 0.58 MV E/A: 0.65 sev ratio: 0.32 Med Peak E' Hossein: 5.2 cm/sec E/E' med: 10.6 Lat Peak E' Hossein: 7.5 cm/sec E/E' lat: 7.5 E/e' average: 9.1 MV dec time: 0.28 sec PA V2 max: 88.6 cm/sec PA V2 mean: 65.2 cm/sec PA mean P.8 mmHg PA pr(Accel): 56.7 mmHg SV(LVOT): 86.7 ml Reading Physician:12:58 PM SI CORONARIES ONLY Addendum Date: 08/24/2023 Addendum: DAPT for 2 weeks with Eliquis and then Ticagrelor with Eliquis for 1year. Result Date: 08/24/2023 Narrative: Cardiac Cath Report Date of Service 08/24/23 Procedure: SI CORONARIES ONLY Indications: ventricular tachycardia Vascular Access RFA Procedure Details Left heart cath details: The patient was brought to the cardiac catheterization lab in a fasting state. Patient was laid supine on the cardiac catheterization table and the vascular access site was prepped and draped in the usual sterile f ashion. One percent Lidocaine was infiltrated over the Right Femoral Artery and vascular access wasachieved. Guide wire was used to advance the catheter through the sheath and up into the aortic sinuses. After coronary angiography was completed, guide wire was advanced through the catheter ahead of the tip of the catheter and the guide wire along with the catheter were pulled together out of thesheath. Findings 1) Coronary angiography: right dominance A. Left main: Moderate calcification of the left coronary system is noted. 20% ostial left main disease no critical stenosis B. Left AnteriorDescending (LAD) Artery: Transapical vessel diffusely diseased there is a tubular stenosis of about30 to 40% in the midsegment after the takeoff of the first major diagonal C. Left Circumflex (LCx):Diffusely diseased vessel but no critical stenosis. Previously placed stent is patent. The proximalpart of the vessel has about a 30 to 40% lesion which is the worst lesion. D. Right Coronary Artery: Is a large dominant vessel. In its ostium and proximal part it has a long tubular stenosis of the 9 0+ percent. INTERVENTIONAL DETAILS: We used a right coronary guide with sideholes initially but visualization was poor and we switch to regular right coronary guide and a run-through wire. We will able to cross this lesion. We never did have good support with the guide. We had to make an Amplatz carveout of the right coronary guide. We started off with a 10 balloon and then sequentially went up to 2.0, 2.5, 3.0 and 3.5 noncompliant balloons. This was a very calcific lesion that was difficult tobreak. We even used angio sculpt balloon. We tried delivering a 3.5 mm stent which did not cross. We will be tried at the GuideLiner as well. That did not work. Of note prior to all this we have already had a whisper extra-support wire as a cordell wire. Finally we decided to take 2 shorter stents. At 3.0by 12 mm stent was deployed distally. This was a Medtronic resolute stent. More proximally intothe ostium a 3.0 x 12 mm resolute stent was deployed. Overlapping inflations were done and the proxi mal stent was postdilated to 3.5 as well. Final angiographic results were excellent Complications There were no periprocedural complications identified Summary: I do not believe that the patient had a ST elevation LA. I believe he became ischemic from rapid ventricular rate from his atrial fibrillation. His second EKG when he was slightly slower did not show ST elevation. Recommendations: Dual antiplatelet therapy for at least 6 months post procedure preferably 1 year. Further management per hospitalist and inpatient labor relations representative. Henry Eden MD XR CHEST 1 VIEW Result Date: 08/24/2023 Narrative: [place]. [address] PATIENT NAME: NATHANAEL ESCOBAR : 1950 GENDER: Remberto EXAM DATE: 08/24/2023 0:15 [facility] CODY MILLER CC: -- - - - CONTRAST: READING STATION ID: [id number] mGy: PROCEDURE: XR CHEST 1 VIEW INDICATIONS: chest pain pre and post cpr with shocks TECHNIQUE: One view of the chest was acquired. COMPARISON: [facility], , XR CHEST 1VW (PORTABLE), 04/20/2017, 23:38. FINDINGS: Surgical changes and devices: None. Lungs and pleura: There are low lung volumes. No acute consolidation. No pleural effusions or pneumothorax. Mediast inum: Mediastinal contours appear normal. Heart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 reviewed. No other issues upon chart review. OBJECTIVE First recorded vitals: Temp: 36.4 ??C (97.5 ??F) - BP: 154/82 - Heart Rate: (!) 139 - Resp: 15 - SpO2: 95 % O2 Flow Rate (L/min): 4 L/min Most recent vitals: Temp: 36.9 ??C (98.4 ??F) - BP: (!) 173/98 - Heart Rate: 74 - Resp: (!) 24 - SpO2: 94 % O2 Flow Rate (L/min): 2 L/min (removed O2) Physical Exam NAD, awake, alert, and interactive and no acute distress Head: normocephalic Eyes: symmetric pupils Lungs:clear to auscultation bilaterally. No rales, wheezing, or stridor. Normal rate and effort. Heart: regular rate and rhythm, S1, S2 normal, no murmur, click, rub or gallop. Normal JVP,and peripheral pulses. Abdomen: abdomen is soft without significant tenderness, masses, organomegaly or guarding Legs: normal strength, tone, and muscle mass. Arms: normal and without swelling Speech: normal rate, tone and rhythm and coherent speech Affect: calm and pleasant Skin: Normal without rash EOMI Anicteric sclera, no jaundice Scheduled Hospital Meds: apixaban, 5 mg, oral, BID aspirin, 81 mg, oral, Daily clopidogreL, 75 mg, oral, Daily gabapentin, 100 mg, oral, BID lisinopriL, 5 mg, oral, Nightly metoprolol succinate XL, 12.5 mg, oral, Daily LABS & DIAGNOSTICS Relevant Labs: Latest Reference Range & Units 08/25/23 04:45 Sodium 135 - 145 mmol/L 140 Potassium 3.5 - 5.2 mmol/L 4.2 Chloride 98 - 107 mmol/L 110 (H) CO2 22 - 30 mmol/L 25 Anion Gap, Serum/Plasma 3 - 11 mmol/L 5 Urea Nitrogen, Serum/Plasma 8.0 - 27.0 mg/dL 20.7 Creatinine, Serum/Plasma 0.76 - 1.27 mg/dL 0.79 BUN/Creatinine Ratio 6.0 - 24.0 26.2 (H) eGFR, Serum/Plasma (CKD-EPI) >60 (CKD-EPI 2020) mL/min/1.73 m2 94 Glucose 65 - 99 mg/dL 114 (H) Calcium 8.5 - 10.1 mg/dL 8.5 WBC 3.8 - 10.1 x10e3/uL 9.0 RBC 4.40 - 5.80 x10e6/uL 4.05 (L) Hemoglobin 13.8 - 17.2 g/dL 12.3 (L) Hematocrit 41.0 - 50.0 % 38.7 (L) MCV 81 - 100 fL 96 MCH 27.0 - 35.0 pg 30.4 MCHC 32.0 - 37.0 g/dL 31.8 (L) RDW 12.3 - 15.4 % 13.0 Platelet Count 150 - 400 x10e3/uL 157 MPV 7.4 - 10.4 fL 10.5 (H) (H): Data is abnormally high (L): Data is abnormally low Medical decision making supporting level of service: LOS: F2.Acute or chronic illnesses or injuriesthat pose a threat to life of bodily function 3: STEMI and cardiac arrest , Discussion of management or test interpretation with external physician, :Consultants : cardiology, Independent review and interpretation tests: WBC, Hg, Plt, Na, Cl, Cr, BUN, Potassium, and Chloride, and Ordering of each unique test: WBC, Hg, Plt, Na, Cl, Cr, BUN, Potassium, and Chloride, Prescription drug management Electronically signed by: Alejandro Stuart MD 08/25/2023 12:40 PM Note to patient: The Cures Act makes medical notes like this available to patients in the interest of transparency. However, be advised this is a medical document. It is intended as [id number] communication. It is written in medical language and may contain abbreviations or verbiage that are unfamiliar. It may appear blunt or direct. Medical documents are intended to carry relevantinformation, facts as evident, and the clinical opinion of the practitioner. Portions of today's documentation have been created with the assistance of voice recognition software. Therefore, it may contain anomalous punctuation, anomalous independent misrecognitions, word substitutions, insertions or omissions. Occasional wrong-word or phonetically similar substitutions mayalso occur, all due to the inherent limitations of voice recognition software. Attempts to correct the above have been made by Alejandro Stuart MD but it is recommended that the chart be read carefully to recognize, using context, where the substitutions may have occurred. * Paul Wilson DO - 08/24/2023 3:22 PM PDT [facility]: INPATIENT PROGRESS NOTE Patient Name: Nathanael Escobar Date of : 1950 Age: 73 y.o. Code Status: Full Code Primary Care Physician: Fidel Wilson Admitting Provider: Morelia Oreilly MD Attending Provider: Henry Eden MD;Sanj* Admit Date: 08/24/2023 Hospital Day: 0 [facility] [place] Physicians ASSESSMENT & PLAN Nathanael Escobar is a 73 y.o. male with a past medical history of hypertension, depression, hyperlipidemia, aortic valve stenosis and CAD s/p angioplasty to left circumflex who presented to [facility] emergency department for the evaluation of V-fib arrest s/p CPR. Plan DAPT Eliquis Metoprolol Cardiology consult Active medical problems Pre-hospital V-fib arrest 2/t STEMI, POA. Active. 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 - plavix and aspirin - telemetry Paroxsymal Atrial Fibrillation, POA. Active. - metoprolol succinate 12.5 mg daily - eliquis 5 mg BID Prolonged QTc, POA. Active. Chronic medical problems -HTN: Continue lisinopril 5 mg daily. -HLD: History of statin intolerance. -Depression -Aortic stenosis -CAD Current jacinto indication: No JACINTO VTE Prophylaxis: apixaban Code Status: Full code Barriers to discharge: None Disposition: Anticipate discharge to : Home within 1 days SUBJECTIVE Chief Complaint Patient presents with Chest Pain Patient's Update Patient was seen and evaluated bedside. Patient Update: Overall admits to feeling better at this time. Plan of care was discussed with patient and questions were solicited and answered in a satisfactorymanner. Interval Update: Interval history : Stable Overnight reports: RT report : None All nursing notes, labs and pertinent imaging reviewed. No other issues upon chart review. OBJECTIVE First recorded vitals: Temp: 36.4 ??C (97.5 ??F) - BP: 154/82 - Heart Rate: (!) 139 - Respirations: 15 - SpO2: 95 % O2 Flow Rate (L/min): 4 L/min Most recent vitals: Temp: 36.8 ??C (98.3 ??F) - BP: 109/63 - Heart Rate: 75 - Respirations: 17 - SpO2: 95 % O2 Flow Rate (L/min): 3 L/min Physical Exam Constitutional: Appearance: Normal appearance. HENT: Head: Normocephalic and atraumatic. Nose: Nose normal. Mouth/Throat: Mouth: Mucous membranes are moist. Eyes: Extraocular Movements: Extraocular movements intact. Cardiovascular: Rate and Rhythm: Normal rate and regular rhythm. Pulses: Normal pulses. Heart sounds: Normal heart sounds. Pulmonary: Effort: Pulmonary effort is normal. Breath sounds: Normal breath sounds. Abdominal: General: Bowel sounds are normal. Palpations: Abdomen is soft. Musculoskeletal: General: Normal range of motion. Cervical back: Normal range of motion. Right lower leg: No edema. Left lower leg: No edema. Comments: R groin w/o signs of hematoma Skin: General: Skin is warm and dry. Capillary Refill: Capillary refill takes less than 2 seconds. Neurological: Mental Status: He is alert and oriented to person, place, and time. Mental status is at baseline. Psychiatric: Mood and Affect: Mood normal. Scheduled Hospital Meds: apixaban, 5 mg, oral, BID [START ON 08/25/2023] aspirin, 81 mg, oral, Daily [START ON 08/25/2023] clopidogreL, 75 mg, oral, Daily gabapentin, 100 mg, oral, BID lisinopriL, 5 mg, oral, Nightly metoprolol succinate XL, 12.5 mg, oral, Daily LABS & DIAGNOSTICS Hematology Results from last 7 days Lab Units 08/24/23 0046 WBC AUTO x10e3/uL 7.3 HEMOGLOBIN g/dL 14.9 HEMATOCRIT % 45.9 MCV fL 93 PLATELETS AUTO x10e3/uL 193 Chemistry Results from last 7 days Lab Units 08/24/23 0620 08/24/23 0046 SODIUM mmol/L 141 143 POTASSIUM mmol/L 4.2 3.6 CHLORIDE mmol/L 110* 108* CO2 mmol/L 22 22 BUN mg/dL 15.1 12.7 CREATININE mg/dL 0.87 1.00 GLUCOSE mg/dL 151* 123* CALCIUM, SERUM mg/dL 8.4* 8.8 MAGNESIUM mg/dL 1.7 1.9 AST U/L -- 44 ALT U/L -- 32 BILIRUBIN TOTAL mg/dL -- 0.4 ALBUMIN g/dL -- 4.1 TOTAL PROTEIN g/dL -- 6.9 Estimated Creatinine Clearance: 80 mL/min (by C-G formula based on SCr of 0.87 mg/dL). IMAGING Imaging results: ECHOCARDIOGRAM COMPLETE [facility] + + Hospital +---------+ : : [address] : [address] : : : : [place], : : : : [place] [address] : : : : Phone: [phone] Echocardiogram Report + + :Name: NATHANAEL ESCOBAR Study Date: 08/24/2023 Height: 71.5 in: :[facility] ReadingLocation: Weight: 210 lb : : Gender: Male BSA: 2.2 m2 : :: 1950 Age: 73 yrs BP: 96/58 mmHg : :Reason For Study: STEMI : :Ordering Physician: HENRY EDEN Performed By: Harinder Jones : :Referring: WILL RODRIGUEZ : + + Interpretation Summary The left ventricle is normal in size. The ejection fraction is estimated to be 60-65%. There is basal inferior wall hypokinesis. There is basal posterolateral wall hypokinesis. The right ventricle is at the upper limits of normal in size. The right ventricular systolic function is normal. Both atria are normal in size. There is moderate aortic stenosis. The peak aortic velocity is 3.58 m/sec. The calculated aortic valve area is 1.3 cm2. There is no other significant valvular heart disease. The ascending aorta is mildly enlarged. Procedure: A two-dimensional transthoracic echocardiogram with color flow and Doppler was performed. The study quality was technically adequate. Comparison is made with the echocardiogram of 12/20/19. The subcostal views were not obtained due to lack of an acoustic window. The patient was in normal sinus rhythm during the exam. Left Ventricle: The left ventricle is normal in size. There is normal left ventricular wall thickness. The ejection fraction is estimated to be 60-65%. There is basal inferior wall hypokinesis. There is basal posterolateral wall hypokinesis. Diastolic parameters suggest a relaxation abnormality of the left ventricle, consistent with probable normal filling pressures. Right Ventricle: The right ventricle is at the upper limits of normal in size. The right ventricular systolic function is normal. Atria: Both atria are normal in size. There is no Doppler evidence for an atrial septal defect. Mitral Valve: The mitral valve is normal in structure and function. There is no mitral regurgitation noted. Aortic Valve: The aortic valve is mildly calcified. There is moderate aortic stenosis. The peak aortic velocity is 3.58 m/sec. The aortic valve mean gradient is 28.0 mmHg. The calculated aortic valve area is 1.3 cm2. There is trace aortic regurgitation. Tricuspid Valve: The tricuspid valve is normal in structure and function. No tricuspid regurgitation. Pulmonary artery pressures cannot be estimated because of the lack of a measurable TR jet velocity. Pulmonic Valve: The pulmonic valve is not well visualized. There is trace pulmonic regurgitation. There is no other significant valvular heart disease. Great Vessels: The aortic root is normal size. The ascending aorta is mildly enlarged. The pulmonary artery is normal size. The inferior vena cava was not visualized. Pericardium/ Pleura There is no pericardial effusion. There is no pleural effusion. MMode/2D Measurements & Calculations LVIDd: 5.4 cm LVOT diam: 2.2 cm LVIDs: 3.8 cm Ao root diam: 3.4 cm IVSd: 1.1 cm asc Aorta Diam: 3.6 cm LVPWd: 0.94 cm Ao Arch Diam (Prox Trans): 2.8 cm LV boss. diameter/BSA (cm/m^2): 2.5 LV sys. diameter/BSA (cm/m^2): 1.8 FS: 28.6 % EPSS: 0.70 cm LA A2 area: 20.2 cm2 RA long axis: 4.6 cm LA A4 area: 20.2 cm2 RA area: 16.9 cm2 LA length (vol): 5.6 cm RA vol: 52.7 ml LA vol: 61.4 ml RA : 24.3 ml/m2 LA vol index: 28.3 ml/m2 RVD1 (basal): 4.1 cm RVD2 (mid): 3.5 cm TAPSE: 1.9 cm Doppler Measurements & Calculations Ao V2 max: 358.2 cm/sec LVOT Max Hossein: 125.7 cm/sec Ao V2 mean: 249.8 cm/sec LV V1 max P.3 mmHg Ao V2 VTI: 69.4 cm LV V1 VTI: 22.5 cm Ao max P.3 mmHg Ao mean P.0 mmHg RACHAEL(I,D): 1.2 cm2 MV E max hossein: 55.8 cm/sec RACHAEL(V,D): 1.3 cm2 MV A max hossein: 85.8 cm/sec RACHAEL indexed to BSA (cm^2/m^2): 0.58 MV E/A: 0.65 sev ratio: 0.32 Med Peak E' Hossein: 5.2 cm/sec E/E' med: 10.6 Lat Peak E' Hossein: 7.5 cm/sec E/E' lat: 7.5 E/e' average: 9.1 MV dec time: 0.28 sec PA V2 max: 88.6 cm/sec PA V2 mean: 65.2 cm/sec PA mean P.8 mmHg PA pr(Accel): 56.7 mmHg SV(LVOT): 86.7 ml Reading Physician:12:58 PM SI CORONARIES ONLY Addendum: DAPT for 2 weeks with Eliquis and then Ticagrelor with Eliquis for 1year. Narrative: Cardiac Cath Report Date of Service 08/24/23 Procedure: SI CORONARIES ONLY Indications: ventricular tachycardia Vascular Access RFA Procedure Details Left heart cath details: The patient was brought to the cardiac catheterization lab in a fasting state. Patient was laid supine on the cardiac catheterization table and the vascular access site was prepped and draped in the usual sterile fashion. One percent Lidocaine was infiltrated over the Right Femoral Artery and vascular access was achieved. Guide wire was used to advance the catheter through the sheath and up into the aortic sinuses. After coronary angiography was completed, guide wire was advanced through the catheter ahead of the tip of the catheter and the guide wire along with the catheter were pulled together out of the sheath. Findings 1) Coronary angiography: right dominance A. Left main: Moderate calcification of the left coronary system is noted. 20% ostial left main disease no critical stenosis B. Left Anterior Descending (LAD) Artery: Transapical vessel diffusely diseased there is a tubular stenosis of about 30 to 40% in the midsegment after the takeoff of the first major diagonal C. Left Circumflex (LCx): Diffusely diseased vessel but no critical stenosis. Previously placed stent is patent. The proximal part of the vessel has about a 30 to 40% lesion which is the worst lesion. D. Right Coronary Artery: Is a large dominant vessel. In its ostium and proximal part it has a long tubular stenosis of the 90+ percent. INTERVENTIONAL DETAILS: We used a right coronary guide with sideholes initially but visualization was poor and we switch to regular right coronary guide and a run-through wire. We will able to cross this lesion. We never did have good support with the guide. We had to make an Amplatz carveout of the right coronary guide. We started off with a 10 balloon and then sequentially went up to 2.0, 2.5, 3.0 and 3.5 noncompliant balloons. This was a very calcific lesion that was difficult to break. We even used angio sculpt balloon. We tried delivering a 3.5 mm stent which did not cross. We will be tried at the GuideLiner as well. That did not work. Of note prior to all this we have already had a whisper extra-support wire as a cordell wire. Finally we decided to take 2 shorter stents. At 3.0by 12 mm stent was deployed distally. This was a Medtronic resolute stent. More proximally into the ostium a 3.0 x 12 mm resolute stent was deployed. Overlapping inflations were done and the proximal stent was postdilated to 3.5 as well. Final angiographic results were excellent Complications There were no periprocedural complications identified Summary: I do not believe that the patient had a ST elevation LA. I believe he became ischemic from rapid ventricular rate from his atrial fibrillation. His second EKG when he was slightly slower did not show ST elevation. Recommendations: Dual antiplatelet therapy for at least 6 months post procedure preferably 1 year. Further management per hospitalist and inpatient labor relations representative. Henry Eden MD XR [address]ST [address] [place] [address] PATIENT NAME: NATHANAEL ESCOBAR : 1950 GENDER: M EXAM DATE: 08/24/2023 0:15 ORDERED FROM: [facility] ORDERING PHYSICIAN: CODY MILLER CC: -- - - - CONTRAST: READING STATION ID: [id number] mGy: PROCEDURE: XR CHEST 1 VIEW INDICATIONS: chest pain pre and post cpr with shocks TECHNIQUE: One view of the chest was acquired. COMPARISON: [facility], , XR CHEST 1VW (PORTABLE), 04/20/2017, 23:38. FINDINGS: Surgical changes and devices: None. Lungs and pleura: There are low lung volumes. No acute consolidation. No pleural effusions or pneumothorax. Mediastinum: Mediastinal contours appear normal. Heart size is normal. Bones and chest wall: No displaced fractures identified. No suspicious bony lesions. Overlying softtissues appear unremarkable. IMPRESSION: 1. Low lung volumes without definite acute cardiopulmonary disease. Reviewed by: Robbie Mccoy M.D. on 08/24/2023 at 1:34 Approved by: Robbie Mccoy M.D. on 08/24/2023 at 1:35 Electronically signed by: Paul Wilson DO 08/24/2023 3:22 PM Portions of today's documentation have been created with the assistance of voice recognition software. Therefore, it may contain anomalous punctuation, anomalous independent misrecognitions, word substitutions, insertions or omissions. Occasional wrong-word or phonetically similar substitutions mayalso occur, all due to the inherent limitations of voice recognition software. Attempts to correct the above have been made by Paul Wilson DO but it is recommended that the chart be read carefullyto recognize, using context, where the substitutions may have occurred. Associated attestation - Alejandro Stuart MD - 08/25/2023 7:20 AM PDT Patient was seen and examined with Dr. Wilson on 08/24/2023 . As teaching attending I was physicallypresent during the critical or allred portions of the service. I participated actively in the management of this patient. I agree with the resident's documentation and management. Recap of plan: discuss with consultants: Consultants : cardiology, follow clinically: stable, and continue medical therapy. Out of bed. Problems: VF arrest STEMI LOS: F3 Medical decision making supporting level of service: Acute or chronic illnesses or injuries that pose a threat to life of bodily function 3: cardiac arrest and STEMI Discussion of management or test interpretation with external physician, :Consultants : cardiology,Independent review and interpretation tests: WBC, Hg, Plt, Na, Cl, Cr, BUN, Potassium, and Chloride, and Ordering of each unique test: WBC, Hg, Plt, Na, Cl, Cr, BUN, Potassium, and Chloride Prescription drug management Alejandro Stuart MD 08/25/23 * Morelia Carr RD - 08/24/2023 12:53 PM PDT LOW RISK NUTRITION NOTE: ASSESS: Pt is a 73yo M admitted to CCU for cardiac arrest. 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 He is now on a cardiac diet, no PO intake recorded. LABS: Reviewed. CURRENT WT: 95.3kg, BMI 28.48kg/m2 DIET: Cardiac, no PO yet NKFA NUTRITION DIAGNOSIS: 1.) No nutritional diagnosis at this time. NUTRITION INTERVENTION: 1.) Continue current diet. No additional nutritional interventions at this time. MONITOR / EVAL: Po intake, wt, gi, labs, nutritional status. Follow per low nutritional risk guidelines. documented in this encounter H&P Notes * Will Sparrow MD - 08/24/2023 4:23 AM PDT [facility]: HISTORY & PHYSICAL Patient Name: Nathanael Escobar Date of : 1950 Age: 73 y.o. Code Status: Full Code Primary Care Physician: Fidel Wilson Admitting Provider: Morelia Oreilly MD Attending Provider: Henry Eden MD;Rashawn* Admit Date: 08/24/2023 Date of Service: 08/24/2023 Hospital Day: 0 BMI Body mass index is 28.48 kg/m??. ASSESSMENT & PLAN Consultants : cardiology Nathanael Escobar is a 73 y.o. male with a past medical history of hypertension, depression, hyperlipidemia, aortic valve stenosis and CAD s/p angioplasty to left circumflex who presented to [facility] emergency department for the evaluation of V-fib arrest s/p CPR. ACTIVELY MANAGED PROBLEMS/PLANS (itemized): Active problems: Acute LA, present on admission. Active. V-fib arrest, present on admission. Active. -S/p CPR, 2 shocks and heart cath with ANGEL to RCA. -Received 10 mg of diltiazem in the ambulance. -EKG showed atrial fibrillation, inferior infarct, acute. -Troponin negative. -Code STEMI was called and he was taken emergently to [facility]. -Patient was loaded with ticagrelor, to continue DAPT for 1 year. -Plan: Ticagrelor 90 mg twice daily, aspirin 81 mg daily, telemetry, echocardiogram, nitroglycerin as needed, cardiology consult (day team to contact). Prolonged QTc, present on admission. Active. -QTc of 504. -Plan: Avoid QTc prolonging medications. Chronic problems: -HTN: Continue lisinopril 5 mg daily. -HLD: History of statin intolerance. -Depression -Aortic stenosis -CAD VTE Prophylaxis: heparin subcutaneous Tobacco/Marijuana Dependence: Never smoked Code Status: Full code. Patient Status: Patient's expected length of stay: Greater than 2 midnights. Patient is under Inpatient status due to severity of presenting symptoms, complexity of treatment plan, and risk of adverse event. Functional status prior to admission: Independent. Functional expectation at discharge (including NSOC): Independent. How will the patient get home from the hospital?: To be determined Are there any known barriers to discharge on admission?: None SUBJECTIVE Chief Complaint Patient presents with Chest Pain Source of History: The patient & chart review History of Present Illness Nathanael Escobar is a 73 y.o. male with a past medical history notable for hypertension, depression, hyperlipidemia, aortic valve stenosis and CAD s/p angioplasty to left circumflex who presented to [facility] emergency department for the evaluation of V-fib arrest s/p CPR. Patient reports he was sleeping when he all of a sudden woke up from his sleep around 11 PM with midsternal chest pain that was constant and felt like a dull, throbbing ache 6-7 out of 10 in severity, it does not radiate. Patient had associated palpitations and irregular heartbeat. Nothing made his symptoms better or worse, denied any shortness of breath, headache, abdominal pain, nausea, vomiting, trauma. Patient reports that he had a previous episode a few weeks ago that lasted about 20 minutes and it presented in the same way where he was sleeping and he woke up all of a sudden with chest pain, during that time he just try to relax and the pain went away on its own without any intervention. Patientdoes mention that he has been experiencing worsening exercise tolerance and shortness of breath in t he last month. Patient decided to call 911, he took 324 mg of aspirin and when EMS arrived his EKG showed that he was in A-fib RVR and signs of suspected anterior LA. The patient went into V-fib arrest, he had CPR for 5 minutes and was shocked twice before going back into A-fib with RVR, in route the patient received diltiazem 10 mg. The patient does not smoke and says that he drinks beer, 2-4 drinks 3 times a week, his last drink was yesterday. Review of Systems A comprehensive review of systems was conducted and found to be negative, except as above in the History of Present Illness. Allergies Allergies Allergen Reactions Doxycycline Penicillins Hydrocodone Other (see comments) Msbbkji-Gho-Kyz Reductase Inhibitors Other (see comments) Current Medications Medications Prior to Admission Medication Sig Dispense Refill Last Dose acetaminophen (TYLENOL) 650 mg 8 hr tablet Take by mouth 2 (two) times a day 2023 aspirin 81 mg chewable tablet Chew and swallow 1 tablet by mouth every day for heart. No further refills until seen by cardiology, call for appointment. 90 tablet 0 2023 evolocumab (Repatha SureClick) 140 mg/mL pen injector INJECT 140MG UNDER THE SKIN EVERY 14 DAYS Past Week gabapentin (NEURONTIN) 100 mg capsule Take 2 capsules (200 mg total) by mouth 2 (two) times a day 2023 lisinopriL (PRINIVIL) 5 mg tablet TAKE 1 TABLET(5 MG) BY MOUTH DAILY 90 tablet 1 2023 metoprolol succinate XL (TOPROL-XL) 25 mg 24 hr tablet TAKE 1 TABLET(25 MG) BY MOUTH DAILY 90 tablet 3 More than a month nitroglycerin (NITROSTAT) 0.[address] 1 tab under tongue every 5 min (as needed for chest pain), for total of 3 doses. If 3rd dose needed, call 911. 25 tablet 1 More than a month Scheduled Meds:[START ON 08/25/2023] aspirin, 81 mg, oral, Daily gabapentin, 100 mg, oral, BID heparin (porcine), 5,000 Units, subcutaneous, q12h HEATHER lisinopriL, 5 mg, oral, Daily ticagrelor, 90 mg, oral, BID Continuous Infusions:sodium chloride, 100 mL/hr, Last Rate: 100 mL/hr (08/24/23 0415) PRN Meds:. acetaminophen atropine flumazeniL Insert peripheral IV AND lidocaine AND Maintain IV access AND Saline lock IV AND sodium chloride melatonin naloxone naloxone nitroglycerin [START ON 08/25/2023] polyethylene glycol [START ON 08/25/2023] senna Past Medical History Past Medical History: Diagnosis Date [place]12 Ankle sprain Anxiety Arthritis 2015 CAD (coronary artery disease) Angioplasty 04/12 Cervical herniated disc L3-L4 Depression Fracture of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 possible anterior STEMI. As they moved the patient onto the stretcher he went into a V-fib arrest. CPR was done for five minutes and the patient was shocked twice before his rhythm returned to atrial fibrillation with RVR. Shortly prior to arrival medics administered 10 mg of diltiazem. The patient reports that earlier today he was feeling at his baseline state of health, but he notes he drank several beers and ate pizza. Of note, the patient was seen by his cardiologistDr. Eden on 07/27/2023 and was instructed to stop his metoprolol at hat time. He is taking all ofhis other prescribed medications as directed. The patient denies any other symptoms. [facility] medical was called at 0017 prior to the patient's arrival. On arrival here patient is with mild chest pain but relatively reassuring. EKGs here obtained and feeling review show mild ST depression in anterior leads with some dynamic changes. I consulted with our long wall shear operator Dr. Eden. Given patient's symptoms with V-fib arrest in the fieldpatient be taken to the cardiac catheterization lab. Cardiac catheterization team came to bedside evaluate patient. Patient consented and taken to the interventional suite. Independent review of blood work obtained. Reassuring initial labs. Medical Decision Making Amount and/or Complexity of Data Reviewed Labs: ordered. Radiology: ordered. ECG/medicine tests: ordered. Risk Prescription drug management. Decision regarding hospitalization. Critical Care Performed by: Cody Miller MD Authorized by: Cody Miller MD Critical care provider statement: Critical care time (minutes): 37 Critical care time was exclusive of: Separately billable procedures and treating other patients Critical care was necessary to treat or prevent imminent or life-threatening deterioration of the following conditions: Cardiac failure Critical care was time spent personally by me on the following activities: Development of treatmentplan with patient or surrogate, discussions with consultants, evaluation of patient's response to treatment, examination of patient, obtaining history from patient or surrogate, review of old charts,re- evaluation of patient's condition, pulse oximetry, ordering and review of radiographic studies, ordering and review of laboratory studies and ordering and performing treatments and interventions I assumed direction of critical care for this patient from another provider in my specialty: no Care discussed with: admitting provider Cardiac arrest: Complicated acute illness or injury with systemic symptoms that poses a threat to life or bodily functions I INDEPENDENTLY INTERPRETED EKG: Atrial fibrillation, tachycardic rate, ST depression in anterior leads. IMAGING: I have independently reviewed the patient's radiographs and I have made decisions on the medical management of this patient based on this review. Additionally, I have reviewed the radiologist's interpretation of these films. SpO2: 95% Oxygen: Room Air Interpretation: Normal Intervention: None 0024 Discussed patient's case and EKG's with Dr. Eden, who recommends activating the cath-lab. I have given the patient an opportunity to ask questions about their condition and I have answered these questions to the best of my ability. The expected clinical course has been discussed and the patient voices an understanding of the instructions and is amenable to the plan. Strict instructions to return to the emergency department if their symptoms worsen, they are not improving as expected, they have problems following through with the plan as discussed here today, or they have any other concerns regarding this condition. LABS/RADIOLOGY RESULTS: Labs Reviewed COMPREHENSIVE METABOLIC PANEL (CMP) - Abnormal Result Value Sodium, Serum/Plasma 143 Potassium, Serum/Plasma 3.6 Chloride, Serum/Plasma 108 (*) CO2, Serum/Plasma 22 Anion Gap, Serum/Plasma 13 (*) Urea Nitrogen, Serum/Plasma 12.7 Creatinine, Serum/Plasma 1.00 Glucose, Serum/Plasma 123 (*) Calcium, Serum/Plasma 8.8 AST, Serum/Plasma 44 ALT, Serum/Plasma 32 Alkaline Phosphatase, Serum/Plasma 68 Total Protein, Serum/Plasma 6.9 eGFR, Serum/Plasma (CKD-EPI 2020) 80 Albumin, Serum/Plasma 4.1 Bilirubin, Total, Serum/Plasma 0.4 BUN/Creatinine Ratio, Serum/Plasma 12.7 MAGNESIUM - Normal Magnesium, Serum/Plasma 1.9 TROPONIN WITH REFLEX TO CK AND CK-MB - Normal Troponin I, Serum/Plasma <0.012 PROTHROMBIN TIME INR - Normal Prothrombin Time 13.5 INR 1.0 COMPLETE BLOOD COUNT WITH DIFF Narrative: The following orders were created for panel order CBC with diff. Procedure Abnormality Status --------- ------ Complete blood count with...[[id number]] Final result Please view results for these tests on the individual orders. EXTRA TUBES Narrative: The following orders were created for panel order Extra Tubes. Procedure Abnormality Status --------- ------ Hold Gold Top - SST[[id number]] In process Hold Cobos Top - NaFluorid...[[id number]] In process Please view results for these tests on the individual orders. POCT GLUCOSE COMPLETE BLOOD COUNT WITH DIFF RESULT WBC Auto 7.3 RBC 4.93 Hemoglobin 14.9 Hematocrit 45.9 MCV 93 MCH 30.2 MCHC 32.5 RDW 12.6 Platelets 193 MPV 10.1 NRBC % 0 Abs. NRBC 0.0 % Neutrophils 51 % Lymphocytes 34 % Monocytes 8 % Eosinophils 4 % Basophils 1 Abs. Neutrophils 3.7 Abs. Lymphocytes 2.4 Abs. Monocytes 0.6 Abs. Eosinophils 0.3 Abs. Basophils 0.1 Abs. Neutrophils (Auto) 3,700.0 HOLD GOLD TOP - SST HOLD COBOS TOP - NAFLUORIDE/POTASSIUM OX XR CHEST 1 VIEW (Results Pending) SI CORONARIES ONLY (Results Pending) FOLLOW-UP RECOMMENDATIONS: No follow-up provider specified. Test results were discussed with the patient and/or the patient's family. The diagnosis was discussed with the patient and/or the patient's family. The treatment plan, as specified under disposition documentation, was discussed with the patient and/or the patient's family. The patient and/or the patient's family have expressed understanding and comprehension of the plan. Final diagnoses: [I46.9] Cardiac arrest ([facility]) [I49.9] Cardiac arrhythmia, unspecified cardiac arrhythmia type Scribe attestation: IDavey, am serving as scribe to document services personally performed by Cody Miller MD based on my observation and the provider's statements to me. Scribe: Davey Martin, scribing for and in the presence of Coyd Miller MD Provider: ICody MD personally performed the services described in the documentation, reviewed and edited the documentation which was dictated to the scribe in my presence, and it accuratelyrecords my words and actions. Electronically signed by: Cody Miller MD ED Provider 08/24/2023, 1:35 AM. DAVEY MARTIN 08/24/23 0135 Cody Miller MD 08/25/23 0750 * Richard Calvillo RN - 08/24/2023 12:22 AM PDT This is a 73 y.o. male who presents to the ED following cardiac arrest and ROSC to the ED via EMS for chest pain, onset tonight. Patient was awoken with 4/10 chest pain from his sleep at approximately 23:30. EMS was dispatched and arrived to find the patient in A-fib with RVR at approximately 23:42shortly before going into V-fib arrest. CPR initiated and the patient defibrillated following thirdround of CPR. Patient had ROSC with return of consciousness following second shock. EMS reports thepatient went back into A-fib with RVR following ROSC. Patient took 4x81mg aspirin following onset of symptoms. EMS gave the patient 10mg of diltiazem en route. documented in this encounter Plan of Treatment Upcoming Encounters Date Type Department Care Team Description 09/19/2023 2:00 PM PDT Office Visit [facility] Cardiology [address], [address] [place] [phone] Henry Eden MD [address] [place] [phone] 10/30/2023 11:30 AM PST Office Visit [facility] Cardiology [address] [phone] Henry Eden MD [address] [place] [address] [phone] Scheduled Orders Name Type Priority Associated Diagnoses Orde r Schedule ECG 12 lead- now if intervention performed ECG STAT Once for 1 Occurrences starting 08/24/2023 until 08/24/2023 Scheduled Referrals Name Type Priority Associated Diagnoses Order Schedule Ambulatory Referral to Cardiac Rehabilitation Outpatient Referral Routine [place] 1 Occurrences starting 08/24/2023 until 02/22/2024 documented as of this encounter Medical Devices Implanted Type Area Information Systems Operator Device Identifier Shelf Expiration Date Model / Serial / Lot Stent, 3.50x12 [place] - [id number] Implanted:Qty: 1 on 08/24/2023 at [facility] N/A: Coronary [employer] [id number] / / documented as of this encounter Procedures Procedure Name Priority Date/Time Associated Diagnosis Comments DISCHARGE PATIENT Routine 08/29/2023 11: 10 AM PDT OXYGEN THERAPY STAT 08/28/2023 8:00 AM PDT OXYGEN THERAPY STAT 08/27/2023 8:00 PM PDT OXYGEN THERAPY STAT 08/27/2023 8:00 AM PDT EXTRA TUBES Routine 08/27/2023 4:22 AM PDT LAVENDER TOP Routine 08/27/2023 4:22 AM PDT LIPID PANEL Routine 08/27/2023 3:59 AM PDT OXYGEN THERAPY STAT 08/26/2023 8:00 PM PDT THYROID STIMULATING HORMONE AND FREE T4 Routine 08/26/2023 1:23 PM PDT COMPLETE BLOOD COUNT Routine 08/26/2023 10:35 AM PDT MAGNESIUM Routine 08/26/2023 10:35 AM PDT HEMOGLOBIN A1C Routine 08/26/2023 10:35 AM PDT BASIC METABOLIC PANEL Routine 08/26/2023 10:35 AM PDT OXYGEN THERAPY STAT 08/26/2023 8:00 AM PDT OXYGEN THERAPY STAT 08/25/2023 8:00 PM PDT TROPONIN WITH REFLEX TO CK AND CK-MB Routine 08/25/2023 4:41 PM PDT OXYGEN THERAPY STAT 08/25/2023 8:00 AM PDT COMPLETE BLOOD COUNT Routine 08/25/2023 4:45 AM PDT BASIC METABOLIC PANEL Routine 08/25/2023 4:45 AM PDT OXYGEN THERAPY STAT 08/24/2023 8:00 PM PDT ECHOCARDIOGRAM COMPLETE Routine 08/24/20 9:22 AM PDT OXYGEN THERAPY STAT 08/24/2023 8:00 AM PDT EXTRA TUBES Routine 08/24/2023 6:20 AM PDT LAVENDER TOP Routine 08/24/2023 6:20 AM PDT MAGNESIUM Add-On 08/24/2023 6:20 AM PDT BASIC METABOLIC PANEL Routine 08/24/2023 6:20 AM PDT HOLD BLOOD CULTURE (NO TEST BEING PERFORMED) Routine 08/24/2023 5:10 AM PDT EXTRA TUBES Routine 08/24/2023 5:10 AM PDT EXTRA TUBES Routine 08/24/2023 4:18 AM PDT HOLD BLOOD BANK TUBE Routine 08/24/2023 4:18 AM PDT SI CORONARIES ONLY Routine 08/24/2023 3: 09 AM PDT ADAMS TOP - NAFLUORIDE Routine 08/24/2023 1:04 AM PDT EXTRA TUBES Routine 08/24/2023 1:04 AM PDT YELLOW TOP- ACD Routine 08/24/2023 1:04 AM PDT COMPLETE BLOOD COUNT WITH DIFF RESULT STAT 08/24/2023 12:46 AM PDT PROTHROMBIN TIME STAT 08/24/2023 12:4 6 AM PDT COMPLETE BLOOD COUNT WITH DIFF STAT 08/24/2023 12:46 AM PDT TROPONIN WITH REFLEX TO CK AND CK-MB STAT 08/24/2023 12:46 AM PDT MAGNESIUM STAT 08/24/2023 12:46 AM PDT COMPREHENSIVE METABOLIC PANEL STAT 08/24/2023 12:46 AM PDT XR CHEST 1 VIEW STAT 08/24/2023 12:39 AM PDT ECG 12-LEAD STAT 08/24/2023 12:33 AM PDT ECG 12-LEAD STAT 08/24/2023 12:27 AM PDT OXYGEN THERAPY STAT 08/24/2023 12:25 AM PDT OXYGEN THERAPY STAT 08/24/2023 12:25 AM PDT OXYGEN THERAPY STAT 08/24/2023 12:25 AM PDT ED CRITICAL CARE Routine 08/24/2023 12:2 4 AM PDT TELEMETRY EXTERNAL RESULTS 08/24/2023 TELEMETRY EXTERNAL RESULTS 08/24/2023 TELEMETRY EXTERNAL RESULTS 08/24/2023 documented in this encounter Results * Hold Lav Top - EDTA (08/27/2023 4:22 AM PDT) Pathologist [facility] [place] Extra Tube Hold for add-ons. 08/27/2023 6:01 AM PDT [facility] Comment:Auto resulted. Blood Venous blood / Unknown 08/27/2023 4:22 AM PDT 08/27/2023 4:23 AM PDT Ordering Provider LAB BLOOD ORDERABLES Performing Organization Address City/State/[facility] Co de Phone Number [facility] [address] [place] [address], * (ABNORMAL) Lipid panel (08/27/2023 3:59 AM PDT) Pathologist [facility] [place] Triglycerides Level, Serum/Plasma 70 <150 (NCEP reference range for fasting specimens) mg/dL LAB CHEMISTRY METHOD 08/27/2023 4:46 AM PDT [facility] Total Cholesterol, Serum/Plasma 99 <200 (Reference Range for fasting specimens) mg/dL LAB CHEMISTRY METHOD 08/27/2023 4:46 AM PDT [facility] LDL Cholesterol, Serum/Plasma, Calculated 42 <100 mg/dL 08/27/2023 4:46 AM [facility] HDL Cholesterol, Serum/Plasma 43(L) >=60 (NCEP reference range for fasting specimens) mg/dL LAB CHEMISTRY METHOD 08/27/2023 4:46 AM PDT [facility] VLDL Cholesterol, Serum/Plasma 14 No Reference Range Established mg/dL 08/27/2023 4:46 AM PDT [facility] CHOL/HDL Ratio, Serum/Plasma 2.3 No Reference Range Established 08/27/2023 4:46 AM PDT [facility] Cholesterol Ratio (LDL/HDL), Serum/Plasma 1.0 No Reference Range Established ratio units 08/27/2023 4:46 AM PDT [facility] Non-HDL Cholesterol, Serum/Plasma 56 <130 mg/dl 08/27/2023 4:46 AM PDT [facility] Blood Venous blood / Unknown Venipuncture / Unknown 08/27/2023 3:59 AM PDT 08/27/2023 4:20 AM PDT Narrative [facility] - 08/27/2023 4:46 AM PDT ?NATIONAL CHOLESTEROL GUIDELINES [facility]ATIONAL [facility] (N[facility]) guidelines for classification, testing and management of cholesterol levels in adults over 20 years of age. This new classification creates three categories of risk for coronary heart disease, regardless of age or sex, according to total and LDL cholesterol levels: ? Based on total cholesterol level Desirable ?<200 mg/dl Borderline-high ?200-239 mg/dl High ? >=240 mg/dl ? Based on cholesterol ratio CHD RISK ? CHOL/HDL RATIO ? MALE ?FEMALE 0.5 x Average ?3.4 ?3.3 1.0 x Average ?5.0 ?4.4 2.0 x Average ?9.6 ?7.1 3.0 x Average ?13.5 ? 11.0 Rivka Viramontes DO LAB BLOOD ORDERABL ES Performing Organization Address [facility] de Phone Number [facility] [address] [place] [address], * (ABNORMAL) Thyroid stimulating hormone and free T4 (08/26/2023 1:23 PM PDT) [facility] [address] TSH, Serum/Plasma 4.980(H) 0.450 - 4.500 uIU/mL LAB CHEMISTRY METHOD 08/26/2023 2:24 PM PDT [facility] Thyroxine Free, Serum/Plasma 1.01 0.82 - 1.77 ng/dL LAB CHEMISTRY METHOD 08/26/2023 2:24 PM PDT [facility] Blood Venous blood / Unknown Venipuncture / Unknown 08/26/2023 1:23 PM PDT 08/26/2023 1:44 PM PDT Rivka Viramontes DO LAB BLOOD ORDERABL ES Performing Organization Address [facility] de Phone Number [facility] [address] [place] [address], * (ABNORMAL) Complete blood count without diff (08/26/2023 10:35 AM PDT) [facility] [address] WBC Auto 7.4 3.8 - 10.1 x10e3/uL 08/26/2023 11:23 AM PDT [facility] RBC 4.21(L) 4.40 - 5.80 x10e6/uL 08/26/2023 11:23 AM [facility] Hemoglobin 12.7(L) 13.8 - 17.2 g/dL 08/26/2023 11:23 AM [facility] Hematocrit 38.5(L) 41.0 - 50.0 % 08/26/2023 11:23 AM [facility] MCV 91 81 - 100 fL 08/26/2023 11:23 AM [facility] MCH 30.2 27.0 - 35.0 pg 08/26/2023 11:23 AM [facility] MCHC 33.0 32.0 - 37.0 g/dL 08/26/2023 11:23 AM [facility] RDW 12.7 12.3 - 15.4 % 08/26/2023 11:23 AM [facility] Platelets 171 150 - 400 x10e3/uL 08/26/2023 11:23 AM [facility] MPV 10.0 7.4 - 10.4 fL 08/26/2023 11:23 AM [facility] NRBC % 0 0 /100 WBCs 08/26/2023 11:23 AM [facility] Abs. NRBC 0.0 x10e3/uL 08/26/2023 11:23 AM [facility] Blood Venous blood / Unknown Venipuncture / Unknown 08/26/2023 10:35 AM PDT 08/26/2023 10:41 AM PDT Rivka Viramontes DO LAB BLOOD ORDERABL ES [facility] [address] [place] [address], * Hemoglobin A1c (08/26/2023 10:35 AM PDT) Hemoglobin A1c 5.6 4.8 - 5.6 % LAB CHEMISTRY METHOD 08/26/2023 12:40 PM [facility] Comment: Reference Ranges: Normal: 4.8% to 5.6% Prediabetes: 5.7% to 6.4% Diabetes: 6.5% or higher Estimated Average Glucose (eAG) 114 No Reference Range Established mg/dL 08/26/2023 12:40 PM PDT [facility] Blood Venous blood / Unknown Venipuncture / Unknown 08/26/2023 10:35 AM PDT 08/26/2023 10:41 AM PDT Narrative [facility] - 08/26/2023 12:40 PM PDT Specimens containing high amount of Hgb F (>7%) may result in lower than expected %A1c values. Rivka Viramontes LAB BLOOD ORDERABL ES Performing Organization Address City/[facility]/ZIP Co de Phone Number [facility] [address] [place] [address], * Magnesium (08/26/2023 10:35 AM PDT) Magnesium, Serum/Plasma 1.9 1.6 - 2.4 mg/dL LAB CHEMISTRY METHOD 08/26/2023 11:13 AM PDT [facility] Blood Venous blood / Unknown Venipuncture / Unknown 08/26/2023 10:35 AM PDT 08/26/2023 11:03 AM PDT [facility] BLOOD ORDERABL ES Performing Organization Address [facility] Co de Phone Number [facility] [address] [place] [address], * (ABNORMAL) Basic metabolic panel (08/26/2023 10:35 AM PDT) Sodium, Serum/Plasma 139 135 - 145 mmol/L LAB CHEMISTRY METHOD 08/26/2023 11:13 AM PDT [facility] Potassium, Serum/Plasma 3.8 3.5 - 5.2 mmol/L LAB CHEMISTRY METHOD 08/26/2023 11:13 AM PDT [facility] Chloride, Serum/Plasma 105 98 - 107 mmol/L LAB CHEMISTRY METHOD 08/26/2023 11:13 AM PDT [facility] CO2, Serum/Plasma 28 22 - 30 mmol/L LAB CHEMISTRY METHOD 08/26/2023 11:13 AM [facility] Anion Gap, Serum/Plasma 6 3 - 11 mmol/L 08/26/2023 11:13 AM [facility] Urea Nitrogen, Serum/Plasma 11.9 8.0 - 27.0 mg/dL LAB CHEMISTRY METHOD 08/26/2023 11:13 AM [facility] Creatinine, Serum/Plasma 0.78 0.76 - 1.27 mg/dL LAB CHEMISTRY METHOD 08/26/2023 11:13 AM [facility] Glucose, Serum/Plasma 111(H) 65 - 99 mg/dL LAB CHEMISTRY METHOD 08/26/2023 11:13 AM [facility] Calcium, Serum/Plasma 8.8 8.5 - 10.1 mg/dL LAB CHEMISTRY METHOD 08/26/2023 11:13 AM [facility] eGFR, Serum/Plasma (CKD-EPI 2020) 95 >60 (CKD-EPI 2020) mL/min/1. 73 m2 08/26/2023 11:13 AM [facility] Comment:eGFR calculation has been updated by recommendation of the National Kidney Foundation (NKF) without the race variable. This change was made on February 13, 2023 BUN/Creatinine Ratio, Serum/Plasma 15.3 6.0 - 24.0 08/26/2023 11:13 AM [facility] Blood Venous blood / Unknown Venipuncture / Unknown 08/26/2023 10:35 AM PDT 08/26/2023 11:03 AM PDT Rivka Viramontes DO LAB BLOOD ORDERABL ES [facility] [address] [place] [address], * (ABNORMAL) Troponin with reflex to CK and CK-MB (08/25/2023 4:41 PM PDT) Troponin I, Serum/Plasma 1.170(HC) <0.034 ng/mL LAB CHEMISTRY METHOD 08/25/2023 5:36 PM PDT [facility] Blood Venous blood / Unknown Venipuncture / Unknown 08/25/2023 4:41 PM PDT 08/25/2023 4:46 PM PDT Rivka Clevelandtoshiaolga LAB BLOOD ORDERABL ES [facility] [address] [place] [address], * (ABNORMAL) Basic metabolic panel (08/25/2023 4:45 AM PDT) Sodium, Serum/Plasma 140 135 - 145 mmol/L LAB CHEMISTRY METHOD 08/25/2023 5:14 AM [facility] Potassium, Serum/Plasma 4.2 3.5 - 5.2 mmol/L LAB CHEMISTRY METHOD 08/25/2023 5:14 AM [facility] Chloride, Serum/Plasma 110(H) 98 - 107 mmol/L LAB CHEMISTRY METHOD 08/25/2023 5:14 AM [facility] CO2, Serum/Plasma 25 22 - 30 mmol/L LAB CHEMISTRY METHOD 08/25/2023 5:14 AM [facility] Anion Gap, Serum/Plasma 5 3 - 11 mmol/L 08/25/2023 5:14 AM [facility] Urea Nitrogen, Serum/Plasma 20.7 8.0 - 27.0 mg/dL LAB CHEMISTRY METHOD 08/25/2023 5:14 AM [facility] Creatinine, Serum/Plasma 0.79 0.76 - 1.27 mg/dL LAB CHEMISTRY METHOD 08/25/2023 5:14 AM [facility] Glucose, Serum/Plasma 114(H) 65 - 99 mg/dL LAB CHEMISTRY METHOD 08/25/2023 5:14 AM [facility] Calcium, Serum/Plasma 8.5 8.5 - 10.1 mg/dL LAB CHEMISTRY METHOD 08/25/2023 5:14 AM [facility] eGFR, Serum/Plasma (CKD-EPI 2020) 94 >60 (CKD-EPI 2020) mL/min/1. 73 m2 08/25/2023 5:14 AM [facility] Comment:eGFR calculation has been updated by recommendation of the National Kidney Foundation (NKF) without the race variable. This change was made on February 13, 2023 BUN/Creatinine Ratio, Serum/Plasma 26.2(H) 6.0 - 24.0 08/25/2023 5:14 AM [facility] Blood Venous blood / Unknown Venipuncture / Unknown 08/25/2023 4:45 AM PDT 08/25/2023 4:57 AM PDT Alejandro Stuart MD LAB BLOOD ORDERABLE S [facility] [address] [place] [address], * (ABNORMAL) Complete blood count without diff (08/25/2023 4:45 AM PDT) WBC Auto 9.0 3.8 - 10.1 x10e3/uL 08/25/2023 5:08 AM [facility] RBC 4.05(L) 4.40 - 5.80 x10e6/uL 08/25/2023 5:08 AM [facility] Hemoglobin 12.3(L) 13.8 - 17.2 g/dL 08/25/2023 5:08 AM [facility] Hematocrit 38.7(L) 41.0 - 50.0 % 08/25/2023 5:08 AM [facility] MCV 96 81 - 100 fL 08/25/2023 5:08 AM [facility] MCH 30.4 27.0 - 35.0 pg 08/25/2023 5:08 AM [facility] MCHC 31.8(L) 32.0 - 37.0 g/dL 08/25/2023 5:08 AM [facility] RDW 13.0 12.3 - 15.4 % 08/25/2023 5:08 AM [facility] Platelets 157 150 - 400 x10e3/uL 08/25/2023 5:08 AM [facility] MPV 10.5(H) 7.4 - 10.4 fL 08/25/2023 5:08 AM PDT [facility] NRBC % 0 0 /100 WBCs 08/25/2023 5:08 AM PDT [facility] Abs. NRBC 0.0 x10e3/uL 08/25/2023 5:08 AM PDT [facility] Blood Venous blood / Unknown Venipuncture / Unknown 08/25/2023 4:45 AM PDT 08/25/2023 4:56 AM PDT Alejandro Stuart MD LAB BLOOD ORDERABLE S [facility] [address] [place] [address], * ECHOCARDIOGRAM COMPLETE (08/24/2023 9:22 AM PDT) Anatomical Region Laterality Modality N/A Echocardiography 08/24/2023 8:24 AM PDT Narrative 08/24/2023 12:58 PM PDT ? [facility] + + ? Hospital ?+---------+ : ?: ?[address] ?: ? : : ?: ?[address] ?: ? : : ?: ?[place], ?: ? : : ?: ? [place] [address] ?: ? : : ?: ?Phone: [phone] ?+---------+ + + ? [phone] ? Echocardiogram Report + + :Name: NATHANAEL ESCOBAR ? Study Date: 08/24/2023 ??Height: 71.5 in: :[facility] [id number] ? ReadingLocation: ?Weight: 210 lb : : ?Gender: Male ?BSA: 2.2 m2 ?: :: 1950 ? Age: 73 yrs ? BP: 96/58 mmHg : :Reason For Study: STEMI ?: :Ordering Physician: HENRY EDEN ??Performed By: Harinder Jones ? : :Referring: WILL RODRIGUEZ ?: + + Interpretation Summary The left ventricle is normal in size. The ejection fraction is estimated to be 60-65%. There is basal inferior wall hypokinesis. There is basal posterolateral wall hypokinesis. The right ventricle is at the upper limits of normal in size. The right ventricular systolic function is normal. Both atria are normal in size. There is moderate aortic stenosis. The peak aortic velocity is 3.58 m/sec. The calculated aortic valve area is 1.3 cm2. There is no other significant valvular heart disease. The ascending aorta is mildly enlarged. Procedure: ?? A two-dimensional transthoracic echocardiogram with color flow and Doppler was performed. The study quality was technically adequate. Comparison is made with the echocardiogram of 12/20/19. The subcostal views were not obtained due to lack of an acoustic window. The patient was in normal sinus rhythm during the exam. Left Ventricle: ?? The left ventricle is normal in size. There is normal left ventricular wall thickness. The ejection fraction is estimated to be 60-65%. There is basal inferior wall hypokinesis. There is basal posterolateral wall hypokinesis. Diastolic parameters suggest a relaxation abnormality of the left ventricle, consistent with probable normal filling pressures. Right Ventricle: ?? The right ventricle is at the upper limits of normal in size. The right ventricular systolic function is normal. Atria: ?? Both atria are normal in size. There is no Doppler evidence for an atrial septal defect. Mitral Valve: ?? The mitral valve is normal in structure and function. There is no mitral regurgitation noted. Aortic Valve: ?? The aortic valve is mildly calcified. There is moderate aortic stenosis. The peak aortic velocity is 3.58 m/sec. The aortic valve mean gradient is 28.0 mmHg. The calculated aortic valve area is 1.3 cm2. There is trace aortic regurgitation. Tricuspid Valve: ?? The tricuspid valve is normal in structure and function. No tricuspid regurgitation. Pulmonary artery pressures cannot be estimated because of the lack of a measurable TR jet velocity. Pulmonic Valve: ?? The pulmonic valve is not well visualized. There is trace pulmonic regurgitation. There is no other significant valvular heart disease. Great Vessels: ?? The aortic root is normal size. The ascending aorta is mildly enlarged. The pulmonary artery is normal size. The inferior vena cava was not visualized. Pericardium/ Pleura ?? There is no pericardial effusion. There is no pleural effusion. MMode/2D Measurements & Calculations LVIDd: 5.4 cm ?LVOT diam: 2.2 cm LVIDs: 3.8 cm ?Ao root diam: 3.4 cm IVSd: 1.1 cm ? asc Aorta Diam: 3.6 cm LVPWd: 0.94 cm ? Ao Arch Diam (Prox Trans): 2.8 cm LV boss. diameter/BSA (cm/m^2): 2.5 LV sys. diameter/BSA (cm/m^2): 1.8 FS: 28.6 % EPSS: 0.70 cm ? LA A2 area: 20.2 cm2 ? RA long axis: 4.6 cm LA A4 area: 20.2 cm2 ? RA area: 16.9 cm2 LA length (vol): 5.6 cm ?RA vol: 52.7 ml LA vol: 61.4 ml ?RA : 24.3 ml/m2 LA vol index: 28.3 ml/m2 ? RVD1 (basal): 4.1 cm RVD2 (mid): 3.5 cm TAPSE: 1.9 cm Doppler Measurements & Calculations Ao V2 max: 358.2 cm/sec ?LVOT Max Hossein: 125.7 cm/sec Ao V2 mean: 249.8 cm/sec ? LV V1 max P.3 mmHg Ao V2 VTI: 69.4 cm ? LV V1 VTI: 22.5 cm Ao max P.3 mmHg Ao mean P.0 mmHg ? RACHAEL(I,D): 1.2 cm2 ?MV E max hossein: 55.8 cm/sec RACHAEL(V,D): 1.3 cm2 ?MV A max hossein: 85.8 cm/sec RACHAEL indexed to BSA (cm^2/m^2): 0.58 ?MV E/A: 0.65 sev ratio: 0.32 ? Med Peak E' Hossein: 5.2 cm/sec ? E/E' med: 10.6 ? Lat Peak E' Hossein: 7.5 cm/sec ? E/E' lat: 7.5 ? E/e' average: 9.1 ? MV dec time: 0.28 sec ?PA V2 max: 88.6 cm/sec ? PA V2 mean: 65.2 cm/sec ? PA mean P.8 mmHg ? PA pr(Accel): 56.7 mmHg ? SV(LVOT): 86.7 ml ? Reading Physician:12:58 PM Procedure Note Olman Fried MD - [facility] + + Hospital+---------+ : : [address] : [address] :: : : [place], :: : : [place] [address] :: : : Phone: [phone] Echocardiogram Report + + :Name: NATHANAEL ESCOBAR Study Date: 08/24/2023 Height:71.5 in: :[facility] ReadingLocation: Weight: 210lb : : Gender: Male BSA: 2.2 m2: :: 1950 Age: 73 yrs BP: 96/58mmHg : :Reason For Study: STEMI: :Ordering Physician: HENRY EDEN Performed By: Haridner Jones: :Referring: WILL RODRIGUEZ: + + Interpretation Summary The left ventricle is normal in size. The ejection fraction is estimated to be 60-65%. There is basal inferior wall hypokinesis. There is basal posterolateral wall hypokinesis. The right ventricle is at the upper limits of normal in size. The right ventricular systolic function is normal. Both atria are normal in size. There is moderate aortic stenosis. The peak aortic velocity is 3.58 m/sec. The calculated aortic valve area is 1.3 cm2. There is no other significant valvular heart disease. The ascending aorta is mildly enlarged. Procedure: A two-dimensional transthoracic echocardiogram with colorflow and Doppler was performed. The study quality was technically adequate. Comparison is made with the echocardiogram of 12/20/19. The subcostalviews were not obtained due to lack of an acoustic window. The patient was innormal sinus rhythm during the exam. Left Ventricle: The left ventricle is normal in size. There is normalleft ventricular wall thickness. The ejection fraction is estimated to be60-65%. There is basal inferior wall hypokinesis. There is basal posterolateralwall hypokinesis. Diastolic parameters suggest a relaxation abnormality of theleft ventricle, consistent with probable normal filling pressures. Right Ventricle: The right ventricle is at the upper limits of normalin size. The right ventricular systolic function is normal. Atria: Both atria are normal in size. There is no Doppler evidence lavern atrial septal defect. Mitral Valve: The mitral valve is normal in structure and function.There is no mitral regurgitation noted. Aortic Valve: The aortic valve is mildly calcified. There is moderateaortic stenosis. The peak aortic velocity is 3.58 m/sec. The aortic valve mean gradient is 28.0 mmHg. The calculated aortic valve area is 1.3 cm2. Thereis trace aortic regurgitation. Tricuspid Valve: The tricuspid valve is normal in structure andfunction. No tricuspid regurgitation. Pulmonary artery pressures cannot be estimated because of the lack of a measurable TR jet velocity. Pulmonic Valve: The pulmonic valve is not well visualized. There istrace pulmonic regurgitation. There is no other significant valvular heartdisease. Great Vessels: The aortic root is normal size. The ascending aorta ismildly enlarged. The pulmonary artery is normal size. The inferior vena cava wasnot visualized. Pericardium/ Pleura There is no pericardial effusion. There is nopleural effusion. MMode/2D Measurements & Calculations LVIDd: 5.4 cm LVOT diam: 2.2 cm LVIDs: 3.8 cm Ao root diam: 3.4 cm IVSd: 1.1 cm asc Aorta Diam: 3.6 cm LVPWd: 0.94 cm Ao Arch Diam (Prox Trans): 2.8cm LV boss. diameter/BSA (cm/m^2): 2.5 LV sys. diameter/BSA (cm/m^2): 1.8 FS: 28.6 % EPSS: 0.70 cm LA A2 area: 20.2 cm2 RA long axis: 4.6 cm LA A4 area: 20.2 cm2 RA area: 16.9 cm2 LA length (vol): 5.6 cm RA vol: 52.7 ml LA vol: 61.4 ml RA : 24.3 ml/m2 LA vol index: 28.3 ml/m2 RVD1 (basal): 4.1 cm RVD2 (mid): 3.5 cm TAPSE: 1.9 cm Doppler Measurements & Calculations Ao V2 max: 358.2 cm/sec LVOT Max Hossein: 125.7 cm/sec Ao V2 mean: 249.8 cm/sec LV V1 max P.3 mmHg Ao V2 VTI: 69.4 cm LV V1 VTI: 22.5 cm Ao max P.3 mmHg Ao mean P.0 mmHg RACHAEL(I,D): 1.2 cm2 MV E max hossein: 55.8 cm/sec RACHAEL(V,D): 1.3 cm2 MV A max hossein: 85.8 cm/sec RACHAEL indexed to BSA (cm^2/m^2): 0.58 MV E/A: 0.65 sev ratio: 0.32 Med Peak E' Hossein: 5.2 cm/sec E/E' med: 10.6 Lat Peak E' Hossein: 7.5 cm/sec E/E' lat: 7.5 E/e' average: 9.1 MV dec time: 0.28 sec PA V2 max: 88.6 cm/sec PA V2 mean: 65.2 cm/sec PA mean P.8 mmHg PA pr(Accel): 56.7 mmHg SV(LVOT): 86.7 ml Electronically signed by: Olman Fried on08/24/2023 Reading Physician:12:58 PM Henry Eden MD [facility] ECHO PROCEDU RES * Magnesium (08/24/2023 6:20 AM PDT) Magnesium, Serum/Plasma 1.7 1.6 - 2.4 mg/dL LAB CHEMISTRY METHOD 08/24/2023 7:47 AM PDT [facility] Blood Venous blood / Unknown Venipuncture / Unknown 08/24/2023 6:20 AM PDT 08/24/2023 6:36 AM PDT Alejandro Stuart MD LAB BLOOD ORDERABLE S Performing Organization Address City/[facility] Co de Phone Number [facility] [address] [place] [address], * Hold Lav Top - EDTA (08/24/2023 6:20 AM PDT) [facility] [address] Extra Tube Hold for add-ons. 08/24/2023 8:02 AM [facility] Comment:Auto resulted. Blood Venous blood / Unknown Venipuncture / Unknown 08/24/2023 6:20 AM PDT 08/24/2023 6:37 AM PDT Ordering Provider LAB BLOOD ORDERABLES Performing Organization Address City/[facility] Co de Phone Number [facility] [address] [place] [address], * (ABNORMAL) Basic metabolic panel (08/24/2023 6:20 AM PDT) [facility] [address] Sodium, Serum/Plasma 141 135 - 145 mmol/L LAB CHEMISTRY METHOD 08/24/2023 6:55 AM [facility] Potassium, Serum/Plasma 4.2 3.5 - 5.2 mmol/L LAB CHEMISTRY METHOD 08/24/2023 6:55 AM [facility] Chloride, Serum/Plasma 110(H) 98 - 107 mmol/L LAB CHEMISTRY METHOD 08/24/2023 6:55 AM [facility] CO2, Serum/Plasma 22 22 - 30 mmol/L LAB CHEMISTRY METHOD 08/24/2023 6:55 AM [facility] Anion Gap, Serum/Plasma 9 3 - 11 mmol/L 08/24/2023 6:55 AM [facility] Urea Nitrogen, Serum/Plasma 15.1 8.0 - 27.0 mg/dL LAB CHEMISTRY METHOD 08/24/2023 6:55 AM PDT [facility] Creatinine, Serum/Plasma 0.87 0.76 - 1.27 mg/dL LAB CHEMISTRY METHOD 08/24/2023 6:55 AM PDT [facility] Glucose, Serum/Plasma 151(H) 65 - 99 mg/dL LAB CHEMISTRY METHOD 08/24/2023 6:55 AM PDT [facility] Calcium, Serum/Plasma 8.4(L) 8.5 - 10.1 mg/dL LAB CHEMISTRY METHOD 08/24/2023 6:55 AM PDT [facility] eGFR, Serum/Plasma (CKD-EPI 2020) 92 >60 (CKD-EPI 2020) mL/min/1. 73 m2 08/24/2023 6:55 AM PDT [facility] Comment:eGFR calculation has been updated by recommendation of the National Kidney Foundation (NKF) without the race variable. This change was made on February 13, 2023 BUN/Creatinine Ratio, Serum/Plasma 17.4 6.0 - 24.0 08/24/2023 6:55 AM [facility] Blood Venous blood / Unknown Venipuncture / Unknown 08/24/2023 6:20 AM PDT 08/24/2023 6:36 AM PDT Henry Eden MD LAB BLOOD ORDERABLES Performing Organization Address City/[facility]/ZIP Co de Phone Number [facility] [address] [place] [address], * Hold Blood Culture (test not being performed) (08/24/2023 5:10 AM PDT) Extra Tube Hold for add-ons. 08/24/2023 10:02 AM PDT [facility] Comment:Auto resulted. Blood Venous blood / Unknown 08/24/2023 5:10 AM PDT 08/24/2023 5:11 AM PDT Ordering Provider LAB MICROBIOLOGY - G ENERAL ORDERABLES Performing Organization Address City/[facility]/ZIP Co de Phone Number [facility] [address] [place] [address], [place] [phone] * Hold Blood Bank Tube (08/24/2023 4:18 AM PDT) Extra Tube Hold for add-ons. 08/24/2023 5:02 PM PDT [facility] Comment:Auto resulted. Blood Venous blood / Unknown 08/24/2023 4:18 AM PDT 08/24/2023 4:18 AM PDT Ordering Provider LAB BLOOD BANK TEST ORDERABLES [facility] [address] [place] [address], * SI CORONARIES ONLY (08/24/2023 3:09 AM PDT) Anatomical Region Laterality Modality N/A Catheterization/ Interventional Lab Addenda Addendum by Henry Eden MD on 08/24/2023 12:52 PM PDT DAPT for 2 weeks with Eliquis and then Ticagrelor with Eliquis for 1year. Narrative 08/24/2023 3:16 AM PDT Cardiac Cath Report Date of Service 08/24/23 Procedure: SI CORONARIES ONLY Indications: ventricular tachycardia Vascular Access RFA Procedure Details Left heart cath details: The patient was brought to the cardiac catheterization lab in a fasting state. Patient was laid supine on the cardiac catheterization table and the vascular access site was prepped and draped in the usual sterile fashion. One percent Lidocaine was infiltrated over the Right Femoral Artery and vascular access was achieved. Guide wire was used to advance the catheter through the sheath and up into the aortic sinuses. After coronary angiography was completed, guide wire was advanced through the catheter ahead of the tip of the catheter and the guide wire along with the catheter were pulled together out of the sheath. Findings 1) Coronary angiography: right dominance A. Left main: Moderate calcification of the left coronary system is noted. ??20% ostial left main disease no critical stenosis B. Left Anterior Descending (LAD) Artery: Transapical vessel diffusely diseased there is a tubular stenosis of about 30 to 40% in the midsegment after the takeoff of the first major diagonal C. Left Circumflex (LCx): Diffusely diseased vessel but no critical stenosis. ??Previously placed stent is patent. ??The proximal part of the vessel has about a 30 to 40% lesion which is the worst lesion. D. Right Coronary Artery: Is a large dominant vessel. ??In its ostium and proximal part it has a long tubular stenosis of the 90+ percent. INTERVENTIONAL DETAILS: We used a right coronary guide with sideholes initially but visualization was poor and we switch to regular right coronary guide and a run-through wire. ??We will able to cross this lesion. ??We never did have good support with the guide. ??We had to make an Amplatz carveout of the right coronary guide. ??We started off with a 10 balloon and then sequentially went up to 2.0, 2.5, 3.0 and 3.5 noncompliant balloons. ??This was a very calcific lesion that was difficult to break. ??We even used angio sculpt balloon. ?? We tried delivering a 3.5 mm stent which did not cross. ??We will be tried at the Guide[employer]iner as well. ??That did not work. ??Of note prior to all this we have already had a whisper extra-support wire as a cordell wire. ??Finally we decided to take 2 shorter stents. ??At 3.0by 12 mm stent was deployed distally. ??This was a Medtronic resolute stent. ??More proximally into the ostium a 3.0 x 12 mm resolute stent was deployed. ??Overlapping inflations were done and the proximal stent was postdilated to 3.5 as well. ??Final angiographic results were excellent Complications There were no periprocedural complications identified Summary: I do not believe that the patient had a ST elevation LA. ??I believe he became ischemic from rapid ventricular rate from his atrial fibrillation. ??His second EKG when he was slightly slower did not show ST elevation. Recommendations: Dual antiplatelet therapy for at least 6 months post procedure preferably 1 year. ??Further management per hospitalist and inpatient labor relations representative. Henry Eden MD Henry Eden MD [facility] SI PROCEDURE S * Hold Cobos Top - NaFluoride/Potassium OX (08/24/2023 1:04 AM PDT) Extra Tube Hold for add-ons. 08/24/2023 3:02 AM PDT [facility] Comment:Auto resulted. Blood Venous blood / Unknown Venipuncture / Unknown 08/24/2023 1:04 AM PDT 08/24/2023 1:05 AM PDT Ordering Provider LAB BLOOD ORDERABLES [facility] [address] [place] [address], * Hold Gold Top - SST (08/24/2023 1:04 AM PDT) Extra Tube Hold for add-ons. 08/24/2023 3:02 AM PDT [facility] Comment:Auto resulted. Blood Venous blood / Unknown Venipuncture / Unknown 08/24/2023 1:04 AM PDT 08/24/2023 1:05 AM PDT Ordering Provider LAB BLOOD ORDERABLES Performing Organization Address City/[facility]/ZIP Co de Phone Number [facility] [address] [place] [address], * Complete blood count with diff (08/24/2023 12:46 AM PDT) WBC Auto 7.3 3.8 - 10.1 x10e3/uL 08/24/2023 12:49 AM PDT [facility] RBC 4.93 4.40 - 5.80 x10e6/uL 08/24/2023 12:49 AM PDT [facility] Hemoglobin 14.9 13.8 - 17.2 g/dL 08/24/2023 12:49 AM PDT [facility] Hematocrit 45.9 41.0 - 50.0 % 08/24/2023 12:49 AM [facility] MCV 93 81 - 100 fL 08/24/2023 12:49 AM [facility] MCH 30.2 27.0 - 35.0 pg 08/24/2023 12:49 AM PDT [facility] MCHC 32.5 32.0 - 37.0 g/dL 08/24/2023 12:49 AM PDT [facility] RDW 12.6 12.3 - 15.4 % 08/24/2023 12:49 AM PDT [facility] Platelets 193 150 - 400 x10e3/uL 08/24/2023 12:49 AM [facility] MPV 10.1 7.4 - 10.4 fL 08/24/2023 12:49 AM PDT [facility] NRBC % 0 0 /100 WBCs 08/24/2023 12:49 AM PDT [facility] Abs. NRBC 0.0 x10e3/uL 08/24/2023 12:49 AM [facility] % Neutrophils 51 % 08/24/2023 12:49 AM [facility] % Lymphocytes 34 % 08/24/2023 12:49 AM [facility] % Monocytes 8 % 08/24/2023 12:49 AM [facility] % Eosinophils 4 % 08/24/2023 12:49 AM [facility] % Basophils 1 % 08/24/2023 12:49 AM PDT [facility] Abs. Neutrophils 3.7 1.6 - 6.9 x10e3/uL 08/24/2023 12:49 AM [facility] Abs. Lymphocytes 2.4 1.1 - 4.8 x10e3/uL 08/24/2023 12:49 AM [facility] Abs. Monocytes 0.6 0.0 - 1.0 x10e3/uL 08/24/2023 12:49 AM PDT [facility] Abs. Eosinophils 0.3 0.0 - 0.5 x10e3/uL 08/24/2023 12:49 AM PDT [facility] Abs. Basophils 0.1 0.0 - 0.4 x10e3/uL 08/24/2023 12:49 AM PDT [facility] Abs. Neutrophils (Auto) 3,700.0 1,600.0 - 6,900.0 /uL 08/24/2023 12:49 AM PDT [facility] Blood Venous blood / Unknown Venipuncture / Unknown 08/24/2023 12:46 AM PDT 08/24/2023 12:46 AM PDT Cody Miller MD LAB BLOOD ORDERABLES Performing Organization Address [facility] Co de Phone Number [facility] [address] [place] [address], * Protime-INR (08/24/2023 12:46 AM PDT) Prothrombin Time 13.5 11.9 - 15.0 sec 08/24/2023 1:15 AM PDT [facility] INR 1.0 0.8 - 1.2 08/24/2023 1:15 AM PDT [facility] Comment: Therapeutic Ranges: Low intensity therapy ? INR 1.5- 2.0 ?? Mod. intensity therapy ? INR 2.0 - 3.0 High intensity therapy (1) INR 2.5 - 3.5 High intensity therapy (2) INR 3.0 - 4.0 Critical value INR ? INR >5.9 ?? Blood Venous blood / Unknown Venipuncture / Unknown 08/24/2023 12:46 AM PDT 08/24/2023 12:46 AM PDT Cody Miller MD LAB BLOOD ORDERABLES Performing Organization Address City/[facility] Co de Phone Number [facility] [address] [place] [address], * Troponin (08/24/2023 12:46 AM PDT) Troponin I, Serum/Plasma <0.012 <0.034 ng/mL LAB CHEMISTRY METHOD 08/24/2023 1:18 AM PDT [facility] Blood Venous blood / Unknown Venipuncture / Unknown 08/24/2023 12:46 AM PDT 08/24/2023 12:46 AM PDT Coyd Miller MD LAB BLOOD ORDERABLES Performing Organization Address City/[facility]/ZIP Co de Phone Number [facility] [address] [place] [address], * Magnesium (08/24/2023 12:46 AM PDT) Magnesium, Serum/Plasma 1.9 1.6 - 2.4 mg/dL LAB CHEMISTRY METHOD 08/24/2023 1:06 AM [facility] Blood Venous blood / Unknown Venipuncture / Unknown 08/24/2023 12:46 AM PDT 08/24/2023 12:46 AM PDT Cody Miller MD LAB BLOOD ORDERABLES Performing Organization Address [facility] Co de Phone Number [facility] [address] [place] [address], * (ABNORMAL) CMP (08/24/2023 12:46 AM PDT) Sodium, Serum/Plasma 143 135 - 145 mmol/L LAB CHEMISTRY METHOD 08/24/2023 1:06 AM [facility] Potassium, Serum/Plasma 3.6 3.5 - 5.2 mmol/L LAB CHEMISTRY METHOD 08/24/2023 1:06 AM [facility] Chloride, Serum/Plasma 108(H) 98 - 107 mmol/L LAB CHEMISTRY METHOD 08/24/2023 1:06 AM [facility] CO2, Serum/Plasma 22 22 - 30 mmol/L LAB CHEMISTRY METHOD 08/24/2023 1:06 AM [facility] Anion Gap, Serum/Plasma 13(H) 3 - 11 mmol/L 08/24/2023 1:06 AM [facility] Urea Nitrogen, Serum/Plasma 12.7 8.0 - 27.0 mg/dL LAB CHEMISTRY METHOD 08/24/2023 1:06 AM [facility] Creatinine, Serum/Plasma 1.00 0.76 - 1.27 mg/dL LAB CHEMISTRY METHOD 08/24/2023 1:06 AM [facility] Glucose, Serum/Plasma 123(H) 65 - 99 mg/dL LAB CHEMISTRY METHOD 08/24/2023 1:06 AM [facility] Calcium, Serum/Plasma 8.8 8.5 - 10.1 mg/dL LAB CHEMISTRY METHOD 08/24/2023 1:06 AM [facility] AST, Serum/Plasma 44 17 - 59 U/L LAB CHEMISTRY METHOD 08/24/2023 1:06 AM [facility] ALT, Serum/Plasma 32 <50 U/L LAB CHEMISTRY METHOD 08/24/2023 1:06 AM [facility] Alkaline Phosphatase, Serum/Plasma 68 25 - 160 U/L LAB CHEMISTRY METHOD 08/24/2023 1:06 AM [facility] Total Protein, Serum/Plasma 6.9 6.3 - 8.2 g/dL LAB CHEMISTRY METHOD 08/24/2023 1:06 AM [facility] eGFR, Serum/Plasma (CKD-EPI 2020) 80 >60 (CKD-EPI 2020) mL/min/1. 73 m2 08/24/2023 1:06 AM [facility] Comment:eGFR calculation has been updated by recommendation of the National Kidney Foundation (NKF) without the race variable. This change was made on February 13, 2023 Albumin, Serum/Plasma 4.1 3.4 - 5.0 g/dL LAB CHEMISTRY METHOD 08/24/2023 1:06 AM [facility] Bilirubin, Total, Serum/Plasma 0.4 0.2 - 1.3 mg/dL LAB CHEMISTRY METHOD 08/24/2023 1:06 AM [facility] BUN/Creatinine Ratio, Serum/Plasma 12.7 6.0 - 24.0 08/24/2023 1:06 AM [facility] Blood Venous blood / Unknown Venipuncture / Unknown 08/24/2023 12:46 AM PDT 08/24/2023 12:46 AM PDT Cody Miller MD LAB BLOOD ORDERABLES [facility] [address] [place] [address], * XR CHEST 1 VIEW (08/24/2023 12:39 AM PDT) Anatomical Region Laterality Modality Body N/A Radiographic Jeannie ging 08/24/2023 1:35 AM PDT Narrative 08/24/2023 1:35 [place]. [address] PATIENT NAME: NATHANAEL ESCOBAR : 1950 GENDER: M EXAM DATE: 08/24/2023 ?? 0:15 ORDERED FROM: [facility] ORDERING PHYSICIAN: CODY MILLER CC: ??-- ??- ??- ??- CONTRAST: ? READING STATION ID: [id number] mGy: PROCEDURE: ??XR CHEST 1 VIEW INDICATIONS: ??chest pain pre and post cpr with shocks TECHNIQUE: ??One view of the chest was acquired. ?? COMPARISON: ??[facility], , XR CHEST 1VW (PORTABLE), 04/20/2017, 23:38. FINDINGS: ?? Surgical changes and devices: ??None. ?? Lungs and pleura: ??There are low lung volumes. ??No acute consolidation. ??No pleural effusions or pneumothorax. ?? Mediastinum: ??Mediastinal contours appear normal. ??Heart size is normal. ?? Bones and chest wall: ??No displaced fractures identified. ??No suspicious bony lesions. ??Overlying soft tissues appear unremarkable. ?? IMPRESSION: ?? 1. Low lung volumes without definite acute cardiopulmonary disease. Reviewed by: Robbie Mccoy M.D. on 08/24/2023 at 1:34 ? Approved by: Robbie Mccoy M.D. on 08/24/2023 at 1:35 ? Procedure Note Robbie Mccoy MD - 08/24/2023 [place]. [address] PATIENT NAME: NATHANAEL ESCOBAR : 1950 GENDER: M EXAM DATE: 08/24/2023 0:15 [facility]: CODY MILLER CC: -- - - - CONTRAST: READING STATION ID: [id number] mGy: PROCEDURE: XR CHEST 1 VIEW INDICATIONS: chest pain pre and post cpr with shocks TECHNIQUE: One view of the chest was acquired. COMPARISON: [facility], CR, XR CHEST 1VW (PORTABLE),04/20/2017, 23:38. FINDINGS: Surgical changes and devices: None. Lungs and pleura: There are low lung volumes. No acute consolidation.No pleural effusions or pneumothorax. Mediastinum: Mediastinal contours appear normal. Heart size is normal. Bones and chest wall: No displaced fractures identified. No suspiciousbony lesions. Overlying soft tissues appear unremarkable. IMPRESSION: 1. Low lung volumes without definite acute cardiopulmonary disease. Reviewed by: Robbie Mccoy M.D. on 08/24/2023 at 1:34 Approved by: Robbie Mccoy M.D. on 08/24/2023 at 1:35 Cody Miller MD RIS SR[facility] XR PROCEDURE S * ECG 12 lead (08/24/2023 12:33 AM PDT) HR 111 bpm [facility] IECG RR 541 ms SR[facility] IECG UT [facility] IECG QRSD 149 ms SR[facility] IECG QT 371 ms [facility] IECG QTc 504 ms [facility] IECG QRS 91 deg [facility] IECG T -24 deg SRH IECG Impression - ABNORMAL ECG - SRH IECG Impression Atrial fibrillation [facility] IECG Impression RBBB and LPFB SRH IECG Impression Evolving inferior infarct since 24-Aug-2023 00:27:31 SR[facility] IECG Impression When compared with ECG of 24-Aug-2023 00:27:31, [facility] IECG Impression No significant change [facility] IECG 08/24/2023 12:3 3 AM PDT Cody Miller MD ECG ORDERABLES [facility] IECG * ECG 12 lead (08/24/2023 12:27 AM PDT) HR 124 bpm [facility] IECG RR 484 ms SRH IECG UT [facility] IECG QRSD 148 ms [facility] IECG QT 328 ms SR[facility] IECG QTc 471 ms [facility] IECG QRS 96 deg SRH IECG T 2 deg [facility] IECG Impression - ABNORMAL ECG - [facility] IECG Impression Atrial fibrillation [facility] IECG Impression Right bundle branch block [facility] IECG Impression Left posterior fascicular block [facility] IECG Impression When compared with ECG of 27-Jul-2023 14:20:51, [facility] IECG Impression Significant change in rhythm [facility] IECG 08/24/2023 12:2 7 AM PDT Cody Miller MD ECG ORDERABLES Performing Organization Address [facility] de Phone Number [facility] IECG * Critical Care (08/24/2023 12:24 AM PDT) Narrative [facility] POCT (CLIA [id number]) - 08/24/2023 12:24 AM PDT Cody Miller MD ? 08/25/2023 ??7:50 AM Critical Care Performed by: Cody Miller MD Authorized by: Cody Miller MD ?? Critical care provider statement: ??Critical care time (minutes): ??37 ??Critical care time was exclusive of: ??Separately billable procedures and treating other patients ??Critical care was necessary to treat or prevent imminent or life-threatening deterioration of the following conditions: ??Cardiac failure ??Critical care was time spent personally by me on the following activities: ??Development of treatment plan with patient or surrogate, discussions with consultants, evaluation of patient's response to treatment, examination of patient, obtaining history from patient or surrogate, review of old charts, re-evaluation of patient's condition, pulse oximetry, ordering and review of radiographic studies, ordering and review of laboratory studies and ordering and performing treatments and interventions ??I assumed direction of critical care for this patient from another provider in my specialty: no ?Care discussed with: admitting provider ?? Cody Miller MD IN CLINIC/BEDSIDE OR DERABLES Performing Organization Address [facility] Co de Phone Number [facility] POCT (CLIA [id number]) [address] [place] [id number], * TELEMETRY EXTERNAL RESULTS (08/24/2023) Narrative 08/24/2023 Ordered by an unspecified provider. Provider External MD [facility] PROCEDURES * TELEMETRY EXTERNAL RESULTS (08/24/2023) Narrative 08/24/2023 Ordered by an unspecified provider. Provider External MD CV CARDIAC SERVICES PROCEDURES * TELEMETRY EXTERNAL RESULTS (08/24/2023) Narrative 08/24/2023 Ordered by an unspecified provider. Provider External MD CV CARDIAC SERVICES PROCEDURES documented in this encounter Visit Diagnoses Diagnosis Cardiac arrest ([facility]-H[facility])- Primary Cardiac arrest Cardiac arrhythmia, unspecified cardiac arrhythmia type * Initial Assessments - DUYEN Yuen - 08/25/2023 2:40 PM PDT CASE MANAGEMENT : INITIAL ASSESSMENT Data: Per EMR review, patient is a 73 y.o. male with Payor: [employer] MANAGED / Plan: [facility] MEDADVANTAGE [employer] CARE / Product Type: *No Product type* / . PCP is Fidel Wilson. Advance directives are not completed. Pt admitted on 08/24/2023 for Cardiac arrest (CMS-HCC) [I46.9] Cardiac arrhythmia, unspecified cardiac arrhythmia type [I49.9]. Extended Emergency Contact Information Primary Emergency Contact: KIAH SCHRADER Relation: Roommate In communication with provider, discharge needs have not been identified. Social Work consults to coordinate discharge services have not been ordered by provider at this time. LIFE SUPPORT TECHNICIAN met with patient At bedside. Social work role explained, contact information and discharge planning checklist provided. Pt resides in [place] with a roommate/friend, Kiah, in a private home. Pt does not have a history with home health and/or fdc services. LIFE SUPPORT TECHNICIAN met with pt at bedside to collect baseline information. Pt reports living in [place] with a friend/roommate, Kiah, in a single level home with 2 steps to enter. Pt reports having local friendsfor support but most family is based in [place]. Pt reports being independent with ADLs and deniesany history of HH or SNF and does not use any DME at baseline. Pt reports Kiah will likely be his r scar home from the hospital. Assessment: alert and oriented x4. Plan: Pt to discharge home with friend via POV once medically stable, pending discharge orders. DUYEN Yuen 08/25/23 4519 Discharge Planning Is there a Discharge Planning order? No Chart Reviewed Yes Source of Information Patient Initial DC Planning Assessment Yes Lives with Friends (Pt reports living with roommate/friend Kiah) Support Systems Friends/neighbors;Family members (Pt reports having local friends but most family is based in [place].) Level of [place] Independent in all regards Assistance Needed None Living Arrangements Private residence Home Layout One level (Pt reports 2 steps to enter) Patient expects to be discharged to: HOME Has a discharge transport plan been identified? Yes Who will transport you at time of discharge? Pt reports friend, Kiah, likely able to provide transport Barriers to Discharge Pending discharge order Insurance Coverage Prescription Drug Coverage Patient has prescription drug coverage Are you currenty receiving any VA benefits? No Anticipated Discharge Needs Anticipated Discharge Destination Home with friends Discharge Plan Complete Yes documented in this encounter Administered Medications Inactive Administered Medications - up to 3 most recent administrations Medication Order MAR Action Action Date Dose Rate Site acetaminophen (TYLENOL) tablet 650 mg 650 mg, oral, Every 4 hours PRN, mild pain, (1-3), Starting on Stephanie 08/24/23 at 0352, total Acetaminophen dose from ALL sources including combination products should not exceed 4,000 mg in a 24 hour period. Can be given concurrently with ibuprofen. Given 08/29/2023 1:59 PM PDT 650 mg Given 08/28/2023 9:14 PM PDT 650 mg Given 08/27/2023 9:29 PM PDT 650 mg apixaban (ELIQUIS) tablet 5 mg 5 mg, oral, 2 times daily, First dose on Stephanie 08/24/23 at 2100 Given 08/29/2023 9:29 AM PDT 5 mg Given 08/28/2023 9:14 PM PDT 5 mg Given 08/28/2023 8:42 AM PDT 5 mg aspirin chewable tablet 81 mg 81 mg, oral, Daily, First dose on Mon08/25/23 at 0900, Postprocedure (SI) Given 08/29/2023 9:29 AM PDT 81 mg Given 08/28/2023 8:42 AM PDT 81 mg Given 08/27/2023 8:47 AM PDT 81 mg atropine injection (abboject) 0.5-1 mg 0.5-1 mg, intravenous, Every 5 min PRN, bradycardia, symptomatic bradycardia, Starting on Mon08/24/23 at 0404, Postprocedure (SI), Repeat as directed. clopidogreL (PLAVIX) tablet 75 mg 75 mg, oral, Daily, First dose on Mon08/25/23 at 0900 Given 08/29/2023 9:29 AM PDT 75 mg Given 08/28/2023 8:42 AM PDT 75 mg Given 08/27/2023 8:47 AM PDT 75 mg fentaNYL (SUBLIMAZE) injection intravenous, As needed, Starting on Mon08/24/23 at 0136, Intra-op Given 08/24/2023 3:00 AM PDT 50 mcg Given 08/24/2023 2:00 AM PDT 50 mcg Given 08/24/2023 1:44 AM PDT 50 mcg flumazeniL (ROMAZICON) injection 0.2 mg 0.2 mg, intravenous, As needed, for suspected benzodiazepine overdose, Starting on Mon08/24/23 at 0404, Postprocedure (SI), every 20 min prn for suspected benzodiazepine overdose gabapentin (NEURONTIN) capsule 100 mg 100 mg, oral, 2 times daily, First dose on Mon08/24/23 at 0900 Given 08/29/2023 9:29 AM PDT 100 mg Given 08/28/2023 9:14 PM PDT 100 mg Given 08/28/2023 8:42 AM PDT 100 mg heparin (porcine) injection 5,000 Units 5,000 Units, intravenous, Once, On Mon08/24/23 at 0039, For 1 dose Given 08/24/2023 12:56 AM PDT 5,000 Units heparin (porcine) injection 5,000 Units 5,000 Units, subcutaneous, Every 12 hours scheduled, First dose on Mon08/24/23 at 0900 Given 08/24/2023 9:24 AM PDT 5,000 Units Right Lower Abdomen heparin (porcine) injection intravenous, As needed, Starting on [facility] 08/24/23 at 0144, Intra-op Given 08/24/2023 1:44 AM PDT 5,000 Units iopamidoL (ISOVUE-370) 370 mg iodine /mL (76 %) injection As needed, Starting on [facility] 08/24/23 at 0308, Intra-op Given 08/24/2023 3:08 AM PDT 280 mL lidocaine (LIDODERM) 4 % patch 1 patch 1 patch, Topical, Administer over 12 Hours, Daily, First dose on 08/27/23 at 0915, Remove patch 12 hours after application Medication Applied 08/28/2023 8:43 AM PDT 1 patch Medication Applied 08/27/2023 9:22 AM PDT 1 patch lidocaine (XYLOCAINE) 10 mg/mL (1 %) injection 1 mL 1 mL, infiltration, Once as needed, for use as anesthetic for IV start, Starting on [facility] 08/24/23 at 0348, For 1 dose lisinopriL (PRINIVIL) tablet 5 mg 5 mg, oral, Nightly, First dose (after last modification) on [facility] 08/24/23 at 2100, Hold for SBP <100 Given 08/28/2023 9:14 PM PDT 5 mg Given 08/27/2023 9:29 PM PDT 5 mg Given 08/26/2023 9:28 PM PDT 5 mg metoprolol (LOPRESSOR) injection 5 mg 5 mg, intravenous, Every 5 min PRN, heart rate greater than 110 beats per minute, Starting on [facility] 08/24/23 at 0657, For 3 doses metoprolol (LOPRESSOR) injection intravenous, As needed, Starting on [facility] 08/24/23 at 0115, Intra-op Given 08/24/2023 1:37 AM PDT 5 mg Given 08/24/2023 1:15 AM PDT 5 mg metoprolol succinate XL (TOPROL-XL) 24 hr split tablet 12.5 mg 12.5 mg, oral, Daily, First dose on [facility] 08/24/23 at 1415, Hold for SBP <100 HR <60 Given 08/26/2023 8:16 AM PDT 12 .5 mg Given 08/25/2023 8:31 AM PDT 12.5 mg Given 08/24/2023 2:56 PM PDT 12.5 mg metoprolol succinate XL (TOPROL-XL) 24 hr split tablet 12.5 mg 12.5 mg, oral, Once, On 08/26/23 at 0945, For 1 dose Given 08/26/2023 9:51 AM PDT 12.5 mg metoprolol succinate XL (TOPROL-XL) 24 hr tablet 25 mg 25 mg, oral, Daily, First dose (after last modification) on 08/27/23 at 0900, Hold for SBP <100 HR <60 Given 08/29/2023 9:29 AM PDT 25 mg Given 08/28/2023 8:42 AM PDT 25 mg Given 08/27/2023 8:47 AM PDT 25 mg midazolam (VERSED) injection intravenous, As needed, Starting on Stephanie 08/24/23 at 0135, Intra-op Given 08/24/2023 3:00 AM PDT 1 mg Given 08/24/2023 2:00 AM PDT 1 mg Given 08/24/2023 1:35 AM PDT 2 mg naloxone (NARCAN) injection 0.4 mg 0.4 mg, intravenous, As needed, opioid reversal, respiratory depression, Starting on Stephanie 08/24/23 at 0404, Postprocedure (SI) nitroprusside 100 mcg/ml injection As needed, Starting on Stephanie 08/24/23 at 0205, Intra-op Given 08/24/2023 2:05 AM PDT 100 mcg oxyCODONE (ROXICODONE) immediate release tablet 5 mg 5 mg, oral, Every 4 hours PRN, moderate pain, Starting on Stephanie 08/24/23 at 0728 Given 08/29/2023 1:59 PM PDT 5 mg Given 08/28/2023 9:14 PM PDT 5 mg Given 08/28/2023 8:48 AM PDT 5 mg pantoprazole (PROTONIX) EC tablet 40 mg 40 mg, oral, Every morning before breakfast, First dose on Mon08/29/23 at 0715, Do not crush or chew. Given 08/29/2023 9:29 AM PDT 40 mg sodium chloride (NS) 0.9 % infusion 100 mL/hr, intravenous, Continuous, Starting on Stephanie 08/24/23 at 0415, For 4 hours, Postprocedure (SI), then saline lock until patient ready for discharge. New Bag 08/24/2023 4:15 AM PDT 100 mL/hr 100 mL/hr sodium chloride 0.9 % flush 10 mL 10 mL, intravenous, As needed, line care, Starting on Stephanie 08/24/23 at 0348 ticagrelor (BRILINTA) tablet 180 mg 180 mg, oral, Once, On Stephanie 08/24/23 at 0059, For 1 dose Given 08/24/2023 1:04 AM PDT 180 mg ticagrelor (BRILINTA) tablet 90 mg 90 mg, oral, 2 times daily, First dose on Stephanie 08/24/23 at 0900 Given 08/24/2023 9:23 AM PDT 90 mg documented in this encounter Active and Recently Administered Medications Times are shown in PDT. Scheduled Medication Order 08/27/2023 08/28/2023 08/29/2023 apixaban (ELIQUIS) tablet 5 mg 5 mg, oral, 2 times daily, First dose on Stephanie 08/24/23 at 2100 0847 (Given - Provider: Ivanna Eddy RN)212 (Given - Provider: Mary Beth Bear RN) 0842 (Given - Provider: Adeline Garza RN)211 (Given - Provider: Mary Beth Bear, REGINA) 0929 (Given - Provider: Nivia Irwin, REGINA)2100 (Canceled Entry - Provider: [facility] Discharge Provider, Automatic - Comment: Automatically canceled at discontinue of medication order) aspirin chewable tablet 81 mg 81 mg, oral, Daily, First dose on Mon08/25/23 at 0900, Postprocedure (SI) 0847 (Given - Provider: Ivanna Eddy RN) 0842 (Given - Provider: Adeline Garza RN) 0929 (Given - Provider: Nivia Irwin, REGINA) clopidogreL (PLAVIX) tablet 75 mg 75 mg, oral, Daily, First dose on Mon08/25/23 at 0900 0847 (Given - Provider: Ivanna Eddy RN) 0842 (Given - Provider: Adeline Garza RN) 0929 (Given - Provider: Nivia Irwin, REGINA) gabapentin (NEURONTIN) capsule 100 mg 100 mg, oral, 2 times daily, First dose on Mon08/24/23 at 0900 0847 (Given - Provider: Ivanna Eddy RN)2128 (Given - Provider: Mary Beth Bear RN) 08 (Given - Provider: Adeline Garza, RN)2113 (Given - Provider: Mary Beth Bear RN) 928 (Given - Provider: Nivia Irwin, RN)2099 (Canceled Entry - Provider: [facility] Discharge Provider, Automatic - Comment: Automatically canceled at discontinue of medication order) lidocaine (LIDODERM) 4 % patch 1 patch 1 patch, Topical, Administer over 12 Hours, Daily, First dose on 08/27/23 at 0915, Remove patch 12 hours after application 921 (Medication Applied - Provider: Ivanna Eddy RN)2121 (Medication Removed - Provider: Mary Beth Bear RN) 842 (Medication Applied - Provider: Adeline Garza, REGINA)2042 (Medication Removed - Provider: Mary Beth Bear RN) 899 (Not Given - Provider: Nivia Irwin RN - Reason: Contraindicated - Comment: med removed now)2099 (Canceled Entry - Provider: [facility] Discharge Provider, Automatic - Comment: Automatically canceled at discontinue of medication order) lisinopriL (PRINIVIL) tablet 5 mg 5 mg, oral, Nightly, First dose (after last modification) on Mon08/24/23 at 2100, Hold for SBP <100 2128 (Given - Provider: Mary Beth Bear RN) 2113 (Given - Provider: Mary Beth Bear RN) 2099 (Canceled Entry - Provider: [facility] Discharge Provider, Automatic - Comment: Automatically canceled at discontinue of medication order) metoprolol succinate XL (TOPROL-XL) 24 hr tablet 25 mg 25 mg, oral, Daily, First dose (after last modification) on 08/27/23 at 0900, Hold for SBP <100 HR <60 0847 (Given - Provider: Ivanna Eddy RN) 08 (Given - Provider: dAeline Garza, REGINA) 928 (Given - Provider: Nivia Irwin, REGINA) pantoprazole (PROTONIX) EC tablet 40 mg 40 mg, oral, Every morning before breakfast, First dose on Mon08/29/23 at 0715, Do not crush or chew. 09 (Given - Provid er: Nivia Irwin, REGINA) PRN Medication Order 08/27/2023 08/28/2023 08/29/2023 acetaminophen (TYLENOL) tablet 650 mg 650 mg, oral, Every 4 hours PRN, mild pain, (1-3), Starting on Stephanie 08/24/23 at 0352, total Acetaminophen dose from ALL sources including combination products should not exceed 4,000 mg in a 24 hour period. Can be given concurrently with ibuprofen. 2128 (Given - Provider: Mary Beth Bear RN) 2113 (Given - Provider: Mary Beth Bear, REGINA) 1358 (Given - Provider: Nivia Irwin, REGINA) atropine injection (abboject) 0.5-1 mg 0.5-1 mg, intravenous, Every 5 min PRN, bradycardia, symptomatic bradycardia, Starting on Stephanie 08/24/23 at 0404, Postprocedure (SI), Repeat as directed. flumazeniL (ROMAZICON) injection 0.2 mg 0.2 mg, intravenous, As needed, for suspected benzodiazepine overdose, Starting on Stephanie 08/24/23 at 0404, Postprocedure (SI), every 20 min prn for suspected benzodiazepine overdose lidocaine (XYLOCAINE) 10 mg/mL (1 %) injection 1 mL(Linked Group 1) 1 mL, infiltration, Once as needed, for use as anesthetic for IV start, Starting on Stephanie 08/24/23 at 0348, For 1 dose melatonin tablet 5 mg 5 mg, oral, Nightly PRN, sleep, Starting on Stephanie 08/24/23 at 0352 metoprolol (LOPRESSOR) injection 5 mg 5 mg, intravenous, Every 5 min PRN, heart rate greater than 110 beats per minute, Starting on Stephanie 08/24/23 at 0657, For 3 doses naloxone (NARCAN) injection 0.04 mg 0.04 mg, intravenous, As needed, opioid reversal, respiratory depression, respiratory rate less than 8, Starting on Stephanie 08/24/23 at 0348, Every 1 Minute PRN For Opiate Reversal 1. Draw up 0.4 mg (1 mL) in 10 mL syringe, and dilute with 9 mL of saline for an naloxone concentration of 0.04 mg/mL. 2. Give 0.04 mg (1 mL) IV push flushing solution into vein and repeat every min until resp rate greater than 10 per min and level of sedation improved. 3. Notify Provider STAT., Indications: opioid-induced respiratory depression naloxone (NARCAN) injection 0.4 mg 0.4 mg, intravenous, As needed, opioid reversal, respiratory depression, Starting on Stephanie 08/24/23 at 0404, Postprocedure (SI) nitroglycerin (NITROSTAT) SL tablet 0.4 mg 0.4 mg, sublingual, Every 5 min PRN, chest pain, Starting on Stephanie 08/24/23 at 0347, May administer up to 3 doses per episode. Fall Risk Category 4 oxyCODONE (ROXICODONE) immediate release tablet 5 mg 5 mg, oral, Every 4 hours PRN, moderate pain, Starting on Stephanie 08/24/23 at 0728 0448 (Given - Provider: Latoya Hernández, RN)0856 (Given - Provider: Ivanna Eddy, RN)1312 (Given - Provider: Ivanna Eddy, REGINA)2129 (Given - Provider: Mary Beth Bear, REGINA) 0848 (Given - Provider: Adeline Garza, RN)2114 (Given - Provider: Mary Beth Bear, REGINA) 1359 (Given - Provider: Nivia Irwin, REGINA) polyethylene glycol (GLYCOLAX) packet 17 g 17 g, oral, Daily PRN, constipation, Starting on Mon08/25/23 at 0000, Initiate on hospital day 2 if patient hasn't had bowel movement. Continue with ambulation and fluids. hold for loose stool., Indications: constipation senna (SENOKOT) tablet 8.6 mg 8.6 mg (1 tablet), oral, 2 times daily PRN, constipation, Starting on Mon08/25/23 at 0000, Initiate on hospital day 2 if patient hasn't had bowel movement. Continue with ambulation and fluids. hold for loose stools., Indications: constipation sodium chloride 0.9 % flush 10 mL(Linked Group 1) 10 mL, intravenous, As needed, line care, Starting on Stephanie 08/24/23 at 0348 Linked Groups Order Group 1: Insert peripheral IV (CANCELED) Once, On Stephanie 08/24/23 at 0349, For 1 occurrence And lidocaine (XYLOCAINE) 10 mg/mL (1 %) injection 1 mLJump to med 1 mL, infiltration, Once as needed, for use as anesthetic for IV start, Starting on Stephanie 08/24/23 at 0348, For 1 dose And Maintain IV access (CANCELED) Until discontinued, Starting on Stephanie 08/24/23 at 0349, Until Specified And Saline lock IV (CANCELED) Once, On Stephanie 08/24/23 at 0349, For 1 occurrence And sodium chloride 0.9 % flush 10 mLJump to med 10 mL, intravenous, As needed, line care, Starting on Stephanie 08/24/23 at 0348 documented in this encounter Advance Directives Latest Code Status on File Code Status Date Activated Date Inactivated Comments Full Code 08/24/2023 4:04 AM 08/29/2023 9:11 PM Code Status History Code Status Date Activated Date Inactivated Comments Full Code 08/24/2023 3:54 AM 08/24/2023 4:04 AM 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
== END 2024-01-29 16:15 ==
LOC: CAR 14:15
PROVIDERS: PCP Internal Medicine; Referring Provider Internal Medicine Cardiovascular Disease; Visit Provider Internal Medicine Cardiovascular Disease
DX: Z95.5 Presence of coronary angioplasty implant and graft (principal); I25.10 Atherosclerotic heart disease of native coronary artery without angina pectoris
CPT/HCPCS: 93010; 93798

== ENCOUNTER → 2024-05-17 14:03 | Outpatient (CLI) | payer MEDICARE, SELFPAY ==
[2024-05-17 14:48] LABS: Add Manual Diff / Slide Review NO; Basophils Absolute Auto 0 /uL (0-100); Basophils Percent Auto 0.8 % (0-2); Eosinophils Absolute Auto 200 /uL (0-450); Hemoglobin 13.7 g/dL (13.5-17.5); Lymphocytes Absolute Auto 1200 /uL (1100-4500); Lymphocytes Percent Auto 25.8 % (25-40); Mean Corpuscular HGB Conc 33.5 % (30-36); Mean Corpuscular Hemoglobin 30.6 PG (26-34); Mean Corpuscular Volume 91.3 fL (80-100); Monocytes Absolute Auto 400 /uL (0-900); Neutrophils Absolute Auto 2800 /uL (1500-7000); Neutrophils Percent Auto 60.4 % (50-75); Platelet Count 190 X10^3/uL (150-400); Red Blood Cell Count 4.49 X10^6/uL (4.5-5.9); Red Cell Distribution Width 14.4 % (11.6-14.8); White Blood Cell Count 4.7 X10^3/uL (4.5-11.0)
[2024-05-17 15:08] LABS: Blood Urea Nitrogen 14 mg/dL (9-20); Calcium 9.6 mg/dL (8.4-10.2); Carbon Dioxide 26 mmol/L (22-32); Chloride 109 mmol/L (98-107); Estimated Glomerular Filt Rate > 60 mL/min (>60); Glucose 103 mg/dL (80-110); HEMOLYSIS < 15 (0-50); Potassium 4.3 mmol/L (3.4-5.1); Sodium 141 mmol/L (137-145)
== END ==
LOC: LAB 14:06
PROVIDERS: PCP Internal Medicine; Referring Provider Internal Medicine Cardiovascular Disease; Visit Provider Internal Medicine Cardiovascular Disease
DX: R55 Syncope and collapse (principal)
CPT/HCPCS: 36415; 80048; 85025

== ENCOUNTER → 2024-08-19 15:32 | Outpatient (CLI) | payer MEDICARE, SELFPAY ==
[2024-08-19 16:27] LABS: Add Manual Diff / Slide Review NO; Basophils Absolute Auto 200 /uL (0-100); Basophils Percent Auto 2.6 % (0-2); Eosinophils Absolute Auto 200 /uL (0-450); Eosinophils Percent Auto 3.1 % (2-4); Hematocrit 41.1 % (41-53); Hemoglobin 13.9 g/dL (13.5-17.5); Lymphocytes Absolute Auto 1300 /uL (1100-4500); Lymphocytes Percent Auto 20.1 % (25-40); Mean Corpuscular HGB Conc 33.8 % (30-36); Mean Corpuscular Hemoglobin 31.1 PG (26-34); Monocytes Absolute Auto 500 /uL (0-900); Monocytes Percent Auto 7.2 % (3-14); Neutrophils Absolute Auto 4300 /uL (1500-7000); Platelet Count 191 X10^3/uL (150-400); Red Blood Cell Count 4.46 X10^6/uL (4.5-5.9); Red Cell Distribution Width 14.3 % (11.6-14.8); White Blood Cell Count 6.4 X10^3/uL (4.5-11.0)
[2024-08-19 16:48] LABS: BUN Creatinine Ratio 17.1 (6-22); Blood Urea Nitrogen 21 mg/dL (9-20); Calcium 9.4 mg/dL (8.4-10.2); Carbon Dioxide 25 mmol/L (22-32); Chloride 104 mmol/L (98-107); Estimated Glomerular Filt Rate > 60 mL/min (>60); Glucose 87 mg/dL (80-110); HEMOLYSIS < 15 (0-50); Potassium 4.3 mmol/L (3.4-5.1); Sodium 136 mmol/L (137-145)
== END ==
LOC: LAB 15:34
PROVIDERS: PCP Internal Medicine; Visit Provider Nurse Practitioner Family
DX: R07.9 Chest pain, unspecified (principal)
CPT/HCPCS: 36415; 80048; 85025

== ENCOUNTER 2024-12-12 14:15 | Outpatient (RCR) | payer MEDICARE, SELFPAY | END 2024-12-12 16:15 | LOC: CAR 14:15 | PROVIDERS: PCP Internal Medicine; Referring Provider Internal Medicine Cardiovascular Disease; Visit Provider Internal Medicine Cardiovascular Disease | DX: I21.4 Non-ST elevation (NSTEMI) myocardial infarction (principal) | CPT/HCPCS: 93798 ==

== ENCOUNTER → 2025-05-29 07:28 | Outpatient (CLI) | payer MEDICARE, SELFPAY ==
--- NOTE | 2025-05-29 07:30 | DI.NM.S_ITS ---
PROCEDURE: NM EN PERF SPECT R&S PHARM Rest and pharmacological stress myocardial perfusion SPECT with gated imaging and ejection fraction RADIOPHARMACEUTICAL: 10.4 mCi Tc-99m tetrafosmin IV at rest and 25.0 mCi Tc-99m tetrafosmin IV at peak effect of pharmacological stress. [id number] was performed. INDICATIONS: CHEST PAIN PQRS ATTESTATIONS: Measure 322 - Is this imaging test primarily performed on a low-risk surgery patient for preoperative evaluation within 30 days preceding their low-risk non-cardiac surgery? Low-risk surgery is defined as cardiac or myocardial infarction less than 1%, including (but not limited to) endoscopic procedures, superficial procedures, cataract surgery, and excisional breast surgery: Answer: No Measure 323 - Is this imaging test performed primarily for the monitoring of an asymptomatic patient who had percutaneous coronary intervention on the visit date or within 2 years of the visit date? Answer: No Measure 324 - Is this imaging test performed primarily for the initial detection and risk assessment on an asymptomatic, low coronary heart disease patient? Low CHD risk definition = clinicians should consider the maximum number of available patient factors used to estimate risk based on [place] (ATP III criteria), typically age, gender, diabetes, smoking status, and use of blood pressure medication, and integrate age appropriate estimates for missing elements, such as LDL or standard blood pressure. Answer: No TECHNIQUE: Radiopharmaceutical was injected at peak stress test, and also at rest. SPECT images were obtained. SPECT myocardial perfusion images were displayed in short axis, horizontal long axis, and vertical long axis views. Gated images were reviewed using [facility] software. COMPARISON: None. CARDIAC STRESS: A pharmacologic stress test was performed under the supervision of an attending staff, using an infusion of 0.4 mg of Lexiscan. Patient initially was exercising per the standard [facility] protocol. However despite exercising for 8 minutes and 49 seconds, target heart rate was not obtained. Patient then began experiencing chest pain. However no ischemic changes are noted. Therefore, test was converted to pharmacological stress. Hemodynamic data: There is normal blood pressure and heart rate response to pharmacologic stress. Symptoms: The patient admitted to anginal chest pain. Aminophylline: None EKG: No diagnostic changes of ischemia; no ectopy. FINDINGS: Raw data: There is good myocardial uptake of radiotracer. No significant motion artifacts. Civt-dp-qszue ratio is not calculated (normal is less than 0.38 for tetrafosmin tracer). Left ventricle function: Gated images demonstrate normal left ventricular wall thickening. No segmental wall motion abnormalities. No transient ischemic dilation; TID is 1.08 (normal less than 1.3). Left ventricle resting end diastolic volume is 168 mL. Left ventricle stress ejection fraction is 74%; normal range is above 45%. Myocardial perfusion: Resting images demonstrated mild hypoperfusion in the basal to mid inferior segment. Stress images demonstrated mild worsening of the hypoperfusion in the same inferior segment. Prone images had the same mild hypoperfusion in the inferior segment as compared to the rest images. SDS score of -2. These findings most likely represents nontransmural inferior wall myocardial infarction without juan- infarct ischemia. IMPRESSION: 1. Abnormal Lexiscan myocardial perfusion scan. 2. Possible nontransmural basal to mid inferior wall infarction without juan- infarct ischemia. 3. Cannot exclude chronotropic incompetency. Dictated by: Jon Barney M.D. on 05/29/2025 at 16:57 Approved by: Jon Barney M.D. on 05/29/2025 at 17:04
== END ==
PROVIDERS: PCP Internal Medicine; Referring Provider Internal Medicine; Visit Provider Nurse Practitioner Acute Care
DX: R07.89 Other chest pain (principal); R94.39 Abnormal result of other cardiovascular function study
CPT/HCPCS: 78452; 93017; A9502; J2785

== ENCOUNTER → 2025-09-01 15:49 | Outpatient (CLI) | payer MEDICARE, SELFPAY ==
[2025-09-01 17:23] LABS: Alanine Aminotransferase 14 IU/L (<50); Albumin 4.3 g/dL (3.5-5.0); Albumin Globulin Ratio 1.7 (1.0-2.8); Alkaline Phosphatase 60 U/L (38-126); Blood Urea Nitrogen 19 mg/dL (9-20); Calcium 9.6 mg/dL (8.4-10.2); Carbon Dioxide 27 mmol/L (22-32); Chloride 105 mmol/L (98-107); Estimated Glomerular Filt Rate > 60 mL/min (>60); Globulin 2.5 g/dL (1.7-4.1); Glucose 62 mg/dL (70-99); HEMOLYSIS < 15 (0-50); Potassium 4.7 mmol/L (3.4-5.1); Sodium 140 mmol/L (137-145); Total Protein 6.8 g/dL (6.3-8.2)
[2025-09-01 17:43] LABS: Free T4, Direct Thyroxine 1.93 ng/dL (0.78-2.19)
[2025-09-01 17:56] LABS: Thyroid Stimulating Hormone 2.58 uIU/mL (0.47-4.68)
== END ==
PROVIDERS: PCP Internal Medicine; Referring Provider Internal Medicine Cardiovascular Disease; Visit Provider Internal Medicine Cardiovascular Disease
DX: I48.0 Paroxysmal atrial fibrillation (principal)
CPT/HCPCS: 36415; 80053; 84439; 84443

== ENCOUNTER → 2025-09-09 14:08 | Outpatient (CLI) | payer MEDICARE, SELFPAY ==
--- NOTE | 2025-09-09 14:11 | DI.RAD.S_ITS ---
PROCEDURE: XR CHEST 2V INDICATIONS: CHEST PAIN TECHNIQUE: 2 views of the chest were acquired. COMPARISON: [facility], CR, XR CHEST 1V, 12/04/2023, 15:47. FINDINGS: Heart, mediastinum and pulmonary vascular: Heart is normal in size and configuration. Mediastinum is unremarkable. Pulmonary vascular is normal. Lungs: Clear Pleural spaces: Normal-no effusions or pneumothorax. Bones and soft tissues: loop recorder device overlies the left anterior chest wall IMPRESSION: Normal chest. Dictated by: Jaskaran Quintanilla M.D. on 09/10/2025 at 13:25 Approved by: Jaskaran Quintanilla M.D. on 09/10/2025 at 13:25
== END ==
PROVIDERS: PCP Internal Medicine; Visit Provider Physician Assistant
DX: I25.9 Chronic ischemic heart disease, unspecified (principal)
CPT/HCPCS: 71046

== ENCOUNTER → 2025-09-25 15:15 | Outpatient (CLI) | payer MEDICARE, SELFPAY | PROVIDERS: PCP Internal Medicine; Referring Provider Internal Medicine; Visit Provider Physician Assistant | DX: I48.0 Paroxysmal atrial fibrillation (principal); R94.2 Abnormal results of pulmonary function studies | CPT/HCPCS: 94060; 94726; 94729 ==

== ENCOUNTER 2025-11-06 07:10 | Day surgery (SDC) | payer MEDICARE, SELFPAY ==
[2025-10-31 14:48] VITALS: BMI 27.3
--- NOTE | 2025-11-06 | PATH_ITS ---
[facility] Accession Number: [id number] No. of containers..01 Tissue . 01 Material submitted: . rectum - RECTAL POLYP . 01 Diagnosis: RECTAL POLYP: Tubular adenoma. [facility] 11/12/20255 Local . 01 Electronically signed: . Robbie Naranjo MD, Pathologist NPI- [id number] . 01 Gross description: . Received in formalin with two identifiers and rectal polyp, is a single ortiz soft tissue fragment 0.5 cm in greatest dimension. Submitted entirely in cassette A1. ([id number]) /JULIO 11/12/20251334 Local . 01 Pathologist provided ICD-10: D12.8 . 01 CPT . 775791 Specimen Comment: A courtesy copy of this report has been sent to [facility] Pathology Performed at: [address] [id number] MD Robbie Naranjo MD Phone: [phone]
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
[2025-11-06 07:42] VITALS: BP 125/80; PULSE 82; RESP 18; TEMP 36.5; O2SAT 97
[2025-11-06] MEDS: LACTATED RINGERS 1,000 ML 42 ML IV (08:22)
--- NOTE | 2025-11-06 08:34 | P.OP.COLON_ITS ---
Operative Date/Time/Diagnoses Date of procedure: 11/06/25 Time of procedure: 09:30 Pre-op diagnosis: Screening colonoscopy Post-op diagnosis: same Procedure & Clinicians Study performed: Colonoscopy with polypectomy Same procedure(s) as scheduled: Yes Indications: 75yo M, screening colonoscopy Surgeon: Mayo Pardo Anesthesia Type: MAC +/- Procedure Notes SCOAP/Timeout: Performed Procedure in detail: Colonoscopy Patient placed in left lateral recumbent position. Time out was performed. Procedural sedation was administered by anesthesia. Examination began with a thorough inspection of the perianal area. There was no evidence of fissures, fistulae, external hemorrhoids or cutaneous malignancy. The colonoscope was then placed into the rectum and the lumen was insufflated with carbon dioxide. The scope was carefully advanced forward. Ultimately the cecum was intubated and confirmed by identification of the ileocecal valve, the appendiceal orifice and the confluence of the taenia. The scope was then slowly withdrawn examining the colon thoroughly in all directions. In the rectum, retroflexion of the scope was performed for inspection of the distal rectum and anal canal. ?Significant colonoscopy findings: ?1. Quality of the preparation-poor, [place] 1-2, improved slightly with irrigation/suction, extreme volume of stool despite pre-prep liquid diet and miralax, h/o inadequate prep, inadequate for detecting lesions and screening ?2. 1cm adenomatous polyp, sessile in rectum, 3cm from anal verge, removed with cold snare and retrieved for pathology 3. Consider alternative screening methods, two week liquid diet prior to colon prep, CT colography, barium enema, cologuard, FIT testing Scope withdrawal time: 8 minutes Findings: polyp(s) Specimen(s): other (polyp) Estimated Blood Loss: 5 Complications: none Impression: Inadequate prep Consider alternative screening methods due to inability to prep Post-procedure Recommendations: Colonoscopy in 5 years Plan for aftercare: PACU then home Follow up: as needed Disposition: PACU
[2025-11-06 09:32] VITALS: BP 117/60; PULSE 73; RESP 16; TEMP 37; O2SAT 97
[2025-11-06 09:35] VITALS: BP 108/58; PULSE 68; RESP 21; O2SAT 97
[2025-11-06 09:40] VITALS: BP 109/57; PULSE 65; RESP 16; O2SAT 100
[2025-11-06 09:50] VITALS: BP 94/54; PULSE 64; RESP 14; O2SAT 100
== END 2025-11-06 10:07 | disposition home or self-care (01) ==
PROVIDERS: PCP Internal Medicine; Referring Provider Surgery; Visit Provider Surgery
PROC: 0DJD8ZZ Inspection of Lower Intestinal Tract, Via Natural or Artificial Opening Endoscopic (ICD-10-PCS; CPT 45378; principal; 2025-11-06 08:15)
DX: Z12.11 Encounter for screening for malignant neoplasm of colon (principal); D12.8 Benign neoplasm of rectum
CPT/HCPCS: 45385; J2704; J7120